=== PATIENT | male | born 1950 | race Caucasian/White ===

== ENCOUNTER 2016-08-07 07:54 | Inpatient (IN) | payer OTHER, MEDICARE ==
[2016-08-07] VITALS (14 sets, daily range): BP systolic 134–231; BP diastolic 72–110; PULSE 56–84; RESP 16–20; TEMP 96.5–98; O2SAT 96–99
[~2016-08-07] VITALS: Ht 165.1 cm; Wt 83.0 kg
[~2016-08-07 07:54] MED LIST: ASPI81TA64 PO; ATOR20TA42 PO; LISI20 PO; NORV10TA PO; PERC7.5T3 PO; PROT40TA PO
[2016-08-07] MEDS ORDERED: SODIUM CHLORIDE 0.9% FLUSH 10 ML FLUSH IVF PRN (08:15)
[2016-08-07] MEDS ORDERED: LISI-515 PO (08:25)
[2016-08-07] MEDS ORDERED: AMLO10 PO (08:25)
--- NOTE | 2016-08-07 08:27 | PD ---
HPI Chief Complaint: CVA Time Seen by Provider: 08:12 Travel History International Travel<30 days: No Contact w/Intl Traveler<30days: No History of Present Illness HPI Patient is a 65-year-old male with history of hypertension, hyperlipdemia, gerd , who presents to emergency room for evaluation of possible CVA. Patient reports that he usually due to bed around 7:30 PM, he does wake up around 3:30 to 4 AM everyday. Patient reports that he woke up this morning and reports that his left arm felt numb and tingling. Reports that he was unable to speak and unable to stand up. Patient reports that his symptoms lasted for a few seconds and resolved on its own. Patient did call his family member who advised him to go to emergency room and be evaluated for possible CVA. Patient reports that over the past few days, he has had increased tingling sensation to his left arm, reports that he didn't think much of it at that time, reports that he ignored his symptoms. Reports that he does have history of hypertension , is currently on lisinopril as well as Norvasc for this and has been taking his medications as prescribed. Reports that his primary care doctor does prescribe his medications, he has seen oracle fusion middleware architect (Dr. Tre Story) in the past and did have cardiac catheter which as per patient, did not show coronary artery disease and has not followed up with Dr. Story in a few years as he has not needed to. Reports that overall, he is feeling much better and has complete resolution of symptoms at this time. Patient denies chest pain or shortness of breath at this time. 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) Endocrine: No GERD: Yes Genitourinary: Yes (BLADDER CA) Hepatitis: Yes (B) Hypertension: Yes Immune Disorder: No Musculoskeletal: No Neurologic: No Psychiatric: No Reproductive: No Respiratory: Yes Radiation Therapy: No Past Surgical History Abdominal Surgery: Yes (BLADDER TUMOR) Cardiac Surgery: Yes (stents jun 2012) Genitourinary Surgery: Yes (CYSTOSCOPY X 2 WITH BLADDER TUMOR REMOVED) Social History Alcohol Use: No Tobacco Use: No Substance Use: No Allergies-Medications (Allergen,Severity, Reaction): Coded Allergies: No Known Allergies (Verified , 08/07/16) Reported Meds & Prescriptions Reported Meds & Active Scripts Active Reported Lisinopril 20 Mg Tab 20 Mg PO DAILY Norvasc (Amlodipine Besylate) 10 Mg Tab 10 Mg PO DAILY Review of Systems General / Constitutional: No: Fever Eyes: No: Visual changes HENT: No: Headaches Cardiovascular: No: Chest Pain or Discomfort Respiratory: No: Shortness of Breath Gastrointestinal: No: Abdominal Pain Genitourinary: No: Dysuria Musculoskeletal: No: Pain Skin: No Rash Neurologic: Positive: Weakness, Paresthesia, Sensory Disturbance, No: Slurred Speech (speech changes) Psychiatric: No: Depression Endocrine: No: Polydipsia Hematologic/Lymphatic: No: Easy Bruising Physical Exam Narrative GENERAL: No acute distress, nontoxic SKIN: Focused skin assessment warm/dry. HEAD: Atraumatic. Normocephalic. EYES: Pupils equal and round. No scleral icterus. No injection or drainage. ENT: No nasal bleeding or discharge. Mucous membranes pink and moist. NECK: Trachea midline. No JVD. CARDIOVASCULAR: Regular rate and rhythm. No murmur appreciated. RESPIRATORY: No accessory muscle use. Clear to auscultation. Breath sounds equal bilaterally. GASTROINTESTINAL: Abdomen soft, non-tender, nondistended. Hepatic and splenic margins not palpable. MUSCULOSKELETAL: No obvious deformities. No clubbing. No cyanosis. No edema. NEUROLOGICAL: Awake and alert. No obvious cranial nerve deficits. Motor grossly within normal limits. Normal speech. Cranial nerves 2- 12 grossly intact with no neuro deficits PSYCHIATRIC: Appropriate mood and affect; insight and judgment normal. Data Data Last Documented VS Vital Signs Date Time Temp Pulse Resp B/P Pulse Ox O2 Delivery O2 Flow Rate FiO2 08/07/16 09:21 71 18 152/80 98 08/07/16 08:30 Room Air 08/07/16 08:11 98.0 Orders Electrocardiogram (08/07/16 ) Prothrombin Time / Inr (Pt) (08/07/16 08:12) Act Partial Throm Time (Ptt) (08/07/16 08:12) Complete Blood Count With Diff (08/07/16 08:12) Comprehensive Metabolic Panel (08/07/16 08:12) Creatine Kinase (Cpk) (08/07/16 08:12) Troponin I (08/07/16 08:12) Urinalysis - C+S If Indicated (08/07/16 08:12) Ct Brain W/O Iv Contrast(Rout) (08/07/16 08:12) Chest, Single Ap (08/07/16 08:12) Ecg Monitoring (08/07/16 08:12) Iv Access Insert/Monitor (08/07/16 08:12) Oximetry (08/07/16 08:12) Blood Glucose (08/07/16 08:12) Sodium Chloride 0.9% Flush (Ns Flush) (08/07/16 08:15) Labetalol Inj (Trandate Inj) (08/07/16 08:30) Urine Culture (08/07/16 08:15) Acetaminophen (Tylenol) (08/07/16 09:30) Aspirin (Aspirin) (08/07/16 09:45) Admit Order (Ed Use Only) (08/07/16 10:02) Labs Laboratory Tests Test 08/07/16 08/07/16 08:15 08:20 Urine Color YELLOW Urine Turbidity CLEAR Urine pH 6.5 Urine Specific [place] 1.016 Urine Protein TRACE mg/dL Urine Glucose (UA) NEG mg/dL Urine Ketones NEG mg/dL Urine Occult Blood NEG Urine Nitrite NEG Urine Bilirubin NEG Urine Urobilinogen LESS THAN 2.0 MG/DL Urine Leukocyte Esterase NEG Urine RBC 1 /hpf Urine WBC 1 /hpf Urine Bacteria RARE /hpf Microscopic Urinalysis Comment CATH-CULTURE IND White Blood Count 7.9 TH/MM3 Red Blood Count 5.18 MIL/MM3 Hemoglobin 16.2 GM/DL Hematocrit 45.7 % Mean Corpuscular Volume 88.2 FL Mean Corpuscular Hemoglobin 31.3 PG Mean Corpuscular Hemoglobin 35.5 % Concent Red Cell Distribution Width 13.0 % Platelet Count 136 TH/MM3 Mean Platelet Volume 9.2 FL Neutrophils (%) (Auto) 62.2 % Lymphocytes (%) (Auto) 27.0 % Monocytes (%) (Auto) 8.7 % Eosinophils (%) (Auto) 1.5 % Basophils (%) (Auto) 0.6 % Neutrophils # (Auto) 4.9 TH/MM3 Lymphocytes # (Auto) 2.1 TH/MM3 Monocytes # (Auto) 0.7 TH/MM3 Eosinophils # (Auto) 0.1 TH/MM3 Basophils # (Auto) 0.0 TH/MM3 CBC Comment DIFF FINAL Differential Comment Prothrombin Time 11.4 SEC Prothromb Time International 1.0 RATIO Ratio Activated Partial 28.4 SEC Thromboplast Time Sodium Level 138 MEQ/L Potassium Level 4.8 MEQ/L Chloride Level 104 MEQ/L Carbon Dioxide Level 27.2 MEQ/L Anion Gap 7 MEQ/L Blood Urea Nitrogen 19 MG/DL Creatinine 1.05 MG/DL Estimat Glomerular Filtration 71 ML/MIN Rate Random Glucose 109 MG/DL Calcium Level 9.3 MG/DL Total Bilirubin 1.0 MG/DL Aspartate Amino Transf 29 U/L (AST/SGOT) Alanine Aminotransferase 34 U/L (ALT/SGPT) Alkaline Phosphatase 47 U/L Total Creatine Kinase 217 U/L Troponin I LESS THAN 0.02 NG/ML Total Protein 7.4 GM/DL Albumin 3.8 GM/DL [facility] Medical Decision Making Medical Screen Exam Complete: Yes Emergency Medical Condition: Yes Interpretation(s) EKG at 0817: NSR at 70bpm, qt/qtc: 436/456, lbbb, no acute changes Vital Signs Date Time Temp Pulse Resp B/P Pulse Ox O2 Delivery O2 Flow Rate FiO2 08/07/16 07:58 97.7 84 20 231/110 97 Room Air Laboratory Tests Test 08/07/16 08/07/16 08:15 08:20 Urine Color YELLOW (YELLW/STRAW) Urine Turbidity CLEAR (CLEAR) Urine pH 6.5 (5.0-8.5) Urine Specific [place] 1.016 (1.002-1.035) Urine Protein TRACE mg/dL (NEG-TRACE) Urine Glucose (UA) NEG mg/dL (NEG) Urine Ketones NEG mg/dL (NEG) Urine Occult Blood NEG (NEG) Urine Nitrite NEG (NEG) Urine Bilirubin NEG (NEG) Urine Urobilinogen LESS THAN 2.0 MG/DL (LESS THAN 2.0) Urine Leukocyte Esterase NEG (NEG) Urine RBC 1 /hpf (0-3) Urine WBC 1 /hpf (0-5) Urine Bacteria RARE /hpf (NONE) Microscopic Urinalysis Comment CATH-CULTURE IND White Blood Count 7.9 TH/MM3 (4.0-11.0) Red Blood Count 5.18 MIL/MM3 (4.50-5.90) Hemoglobin 16.2 GM/DL (13.0-17.0) Hematocrit 45.7 % (39.0-51.0) Mean Corpuscular Volume 88.2 FL (80.0-100.0) Mean Corpuscular Hemoglobin 31.3 PG (27.0-34.0) Mean Corpuscular Hemoglobin 35.5 % Concent (32.0-36.0) Red Cell Distribution Width 13.0 % (11.6-17.2) Platelet Count 136 TH/MM3 (150-450) Mean Platelet Volume 9.2 FL (7.0-11.0) Neutrophils (%) (Auto) 62.2 % (16.0-70.0) Lymphocytes (%) (Auto) 27.0 % (9.0-44.0) Monocytes (%) (Auto) 8.7 % (0.0-8.0) Eosinophils (%) (Auto) 1.5 % (0.0-4.0) Basophils (%) (Auto) 0.6 % (0.0-2.0) Neutrophils # (Auto) 4.9 TH/MM3 (1.8-7.7) Lymphocytes # (Auto) 2.1 TH/MM3 (1.0-4.8) Monocytes # (Auto) 0.7 TH/MM3 (0-0.9) Eosinophils # (Auto) 0.1 TH/MM3 (0-0.4) Basophils # (Auto) 0.0 TH/MM3 (0-0.2) CBC Comment DIFF FINAL Differential Comment Prothrombin Time 11.4 SEC (9.8-11.6) Prothromb Time International 1.0 RATIO Ratio Activated Partial 28.4 SEC Thromboplast Time (24.3-30.1) Sodium Level 138 MEQ/L (136-145) Potassium Level 4.8 MEQ/L (3.5-5.1) Chloride Level 104 MEQ/L (98-107) Carbon Dioxide Level 27.2 MEQ/L (21.0-32.0) Anion Gap 7 MEQ/L (5-15) Blood Urea Nitrogen 19 MG/DL (7-18) Creatinine 1.05 MG/DL (0.60-1.30) Estimat Glomerular Filtration 71 ML/MIN (>89) Rate Random Glucose 109 MG/DL (74-106) Calcium Level 9.3 MG/DL (8.5-10.1) Total Bilirubin 1.0 MG/DL (0.2-1.0) Aspartate Amino Transf 29 U/L (15-37) (AST/SGOT) Alanine Aminotransferase 34 U/L (12-78) (ALT/SGPT) Alkaline Phosphatase 47 U/L (45-117) Total Creatine Kinase 217 U/L (39-308) Troponin I LESS THAN 0.02 NG/ML (0.02-0.05) Total Protein 7.4 GM/DL (6.4-8.2) Albumin 3.8 GM/DL (3.4-5.0) Last Impressions Head CT 08/07/16811 Signed Impressions: Service Date/Time: July 08:56 - CONCLUSION: No acute intracranial findings. Moris Lam MD Chest X-Ray 08/07/16811 Signed Impressions: Service Date/Time: July 08:18 - CONCLUSION: 1. No acute cardiopulmonary disease. Rafa Santiago MD Vital Signs Date Time Temp Pulse Resp B/P Pulse Ox O2 Delivery O2 Flow Rate FiO2 08/07/16 09:21 71 18 152/80 98 08/07/16 08:39 70 167/92 08/07/16 08:30 81 18 160/92 98 Room Air 08/07/16 08:17 17 98 Room Air 08/07/16 08:15 81 17 98 Room Air 08/07/16 08:11 98.0 70 18 220/106 08/07/16 07:58 97.7 84 20 231/110 97 Room Air Differential Diagnosis TIA, Hypertensive urgency, Intracranial Hemorrhage, Arrhythmia, ACS, Electrolyte Abnormality Narrative Course Patient is a 65-year-old male who presents to emergency room for evaluation of possible CVA. Patient reports that he woke up this morning at his normal time around 4 AM and reports that he had numbness and paresthesias to his left arm, reports that he was unable to speak and unable to stand up and ambulate. Patient reports that the symptoms lasted a few seconds and resolved on its own. Patient at this time reports complete resolution of symptoms. Patient had a benign neuro exam with no cranial nerve deficits. Patient does have concerning symptoms for possible TIA. Will workup patient for TIA which includes CT of the head as well as lab work and EKG. Patient's blood pressure is concerning as it is 231/110 - hypertensive urgency could cause these symptoms as well. Will give patient antihypertensives to lower his blood pressure. Patient was placed on pegger dobby looms upon arrival to ER BP now 167/92 without labetolol - will hold labetolol at this time Reviewed all labs and studies with patient in detail. Patient agreeable to observation for TIA work up case reviewed with dr hawthorne who accepts pt to service Diagnosis Primary Impression: TIA (transient ischemic attack) Qualified Code: G45.9 - Transient cerebral ischemia, unspecified type Admitting Information Admitting Physician Requests: Tigist Perez DO Aug 07, 2016 08:27
[2016-08-07] MEDS ORDERED: LABETALOL HCL 100 MG/20 ML VIAL IV PUSH ONE (08:30)
[2016-08-07 08:33] LABS: AUTOMATED NEUTROPHIL # 4.9 TH/MM3 (1.8-7.7); BASOPHIL % 0.6 % (0.0-2.0); EOSINOPHIL # 0.1 TH/MM3 (0-0.4); EOSINOPHIL % 1.5 % (0.0-4.0); HEMATOCRIT 45.7 % (39.0-51.0); HEMO FLAGS DIFF FINAL; LYMPHOCYTE # 2.1 TH/MM3 (1.0-4.8); MEAN CELL VOLUME 88.2 FL (80.0-100.0); MEAN CORPUSCULAR HEMOGLOBIN 31.3 PG (27.0-34.0); MEAN CORPUSCULAR HGB CONC 35.5 % (32.0-36.0); MONO % 8.7 % (0.0-8.0); NEUT % 62.2 % (16.0-70.0); PLATELET COUNT 136 TH/MM3 (150-450); RED BLOOD COUNT 5.18 MIL/MM3 (4.50-5.90); WHITE BLOOD COUNT 7.9 TH/MM3 (4.0-11.0)
[2016-08-07 08:33] LABS: BACTERIA, URINE RARE /hpf; BLOOD, URINE NEG (NEG); COMMENT (UR) CATH-CULTURE IND; CULTURE IF INDICATED CATH CULTURE IND; GLUCOSE,URINE NEG (NEG); KETONE, URINE NEG (NEG); NITRITE,URINE NEG (NEG); PH, URINE 6.5 (5.0-8.5); URINE COLOR YELLOW (YELLW/STRAW)
[2016-08-07 08:42] LABS: APTT (PATIENT) 28.4 SEC (24.3-30.1); PROTHROMBIN TIME - PATIENT 11.4 SEC (9.8-11.6)
--- NOTE | 2016-08-07 08:53 | RADRPT ---
EXAM DATE/TIME: 08/07/2016 08:18 [facility] COMPARISON: CHEST SINGLE AP, December 14, 2012, 16:26. INDICATIONS : Patient states he had stroke like symptoms this morning. He had left side numbness, very weak and diz zy, and said he was trying to talk but couldn't. MEDICAL HISTORY : None. SURGICAL HISTORY : None. ENCOUNTER: Initial ACUITY: 1 day PAIN SCORE: 0/10 LOCATION: Bilateral chest FINDINGS: The cardiac silhouette is enlarged in transverse diameter. The lungs are free of acute parenchymal op acity. No effusions are identified. The aortic knob is prominent with tortuosity of the descending th oracic aorta. CONCLUSION: 1. No acute cardiopulmonary disease. Rafa Santiago MD on August 07, 2016 at 8:51 Board Certified Radiologist. This report was verified electronically.
[2016-08-07 08:56] LABS: ALKALINE PHOSPHATASE 47 U/L (45-117); ALT (GPT) 34 U/L (12-78); ANION GAP 7 MEQ/L (5-15); AST (GOT) 29 U/L (15-37); BICARBONATE 27.2 MEQ/L (21.0-32.0); BLOOD UREA NITROGEN 19 MG/DL (7-18); CHLORIDE 104 MEQ/L (98-107); CREATINE KINASE 217 U/L (39-308); GLOMERULAR FILTRATION RATE 71 ML/MIN (>89); SODIUM (NA) 138 MEQ/L (136-145)
[2016-08-07 08:59] LABS: POTASSIUM 4.8 MEQ/L (3.5-5.1)
[2016-08-07] MEDS ORDERED: ACETAMINOPHEN 325 MG TAB PO ONE (09:30)
--- NOTE | 2016-08-07 09:33 | RADRPT ---
EXAM DATE/TIME: 08/07/2016 08:56 [facility] COMPARISON: CT BRAIN W/O CONTRAST, December 14, 2012, 16:06. CHEST SINGLE AP, August 07, 2016, 8:18. INDICATIONS : Woke up this morning unable to speak or move appropriately. RADIATION DOSE: 56.35 CTDIvol (mGy) MEDICAL HISTORY : Cardiovascular disease. Hypertension. Hepatitis B.Bladder cancer. SURGICAL HISTORY : None. ENCOUNTER: Initial ACUITY: 1 day PAIN SCALE: 0/10 LOCATION: cranial TECHNIQUE: Multiple contiguous axial images were obtained of the head. Using automated exposure control and adj ustment of the mA and/or kV according to patient size, radiation dose was kept as low as reasonably a chievable to obtain optimal diagnostic quality images. FINDINGS: CEREBRUM: The ventricles are normal for age. No evidence of midline shift, mass lesion, hemorrhage or acute in farction. No extra-axial fluid collections are seen. POSTERIOR FOSSA: The cerebellum and brainstem are intact. The 4th ventricle is midline. The cerebellopontine angle i s unremarkable. EXTRACRANIAL: The visualized portion of the orbits is intact. SKULL: The calvaria is intact. No evidence of skull fracture. CONCLUSION: No acute intracranial findings. Moris Lam MD on August 07, 2016 at 9:27 Board Certified Radiologist. This report was verified electronically.
[2016-08-07] MEDS ORDERED: ASPIRIN 325 MG TAB PO ONE (09:45)
[2016-08-07] MEDS ORDERED: GLUCAGON 1 MG/ML VIAL OTHER PRN (10:15)
[2016-08-07] MEDS ORDERED: DEXTROSE 50% IN WATER 50 ML VIAL(D50) IV PUSH PRN (10:15)
[2016-08-07] MEDS ORDERED: ENALAPRILAT 1.25 MG/ML VIAL IV PRN (10:15)
[2016-08-07] MEDS ORDERED: SODIUM CHLORIDE 0.9% FLUSH 10 ML FLUSH IV FLUSH PRN (10:15)
[2016-08-07] MEDS: INSULIN ASPART SUPPLEMENTAL SCALE SQ SCH ×3 (11:00→21:00)
--- NOTE | 2016-08-07 11:07 | RADRPT ---
EXAM DATE/TIME: 08/07/2016 10:11 [facility] COMPARISON: MRA CAROTIDS W CONTRAST, December 18, 2012, 12:09. INDICATIONS : Transischemic attack. Left arm numbness. MEDICAL HISTORY : Hypertension. Gastroesophageal reflux disease. Carcinoma, bladder. PAD. COPD. SURGICAL HISTORY : Cardiac stent. Bladder tumor removal. ENCOUNTER: Initial ACUITY: 3 days PAIN SCORE: 0/10 LOCATION: Bilateral neck PEAK SYSTOLIC VELOCITIES (cm/sec): ICA/CCA RATIO: Right: 13.4 Left: 2.3 ICA: Right: 579 Left: 189 CCA: Right: 43 Left: 81 ECA: Right: 114 Left: 131 VERTEBRAL: Right: 54 antegrade Left: 41 antegrade Elevated flow velocities and ICA/CCA ratios have been found to correlate with increased degrees of vessel stenosis, calculated as percentage of diameter relative to a normal segment of distal ICA/CCA FINDINGS: RIGHT CAROTID: Severe calcified atherosclerotic plaque is seen involving the proximal ICA with less abundant calcifi ed plaque involving the bulb and common carotid artery. The calcified nature of the ICA plaque genera freeman shadowing obscuring grayscale analysis. The ICA waveform shows considerable spectral broadening w as some delay in the stroke as well as a reduced peak infiltrate. Antegrade diastolic flow persists. LEFT CAROTID: Severe calcified atherosclerotic plaque is seen involving the proximal ICA with less abundant calcifi ed plaque involving the bulb and common carotid artery. The calcified nature of the ICA plaque genera freeman shadowing obscuring grayscale analysis. The ICA waveform shows considerable spectral broadening w as some delay in the stroke as well as a reduced peak infiltrate. Antegrade diastolic flow persists. VERTEBRAL ARTERIES: Antegrade flow is seen in both vertebral arteries. MISCELLANEOUS: None. CONCLUSION: 1. Diffuse severe calcified plaque involving both carotid arteries. High grade stenosis suspected inv olving the right ICA with 50-69% stenosis involving the left ICA. Consider CTA of the carotid arterie s to further evaluate. 2. Antegrade flow involving both vertebral arteries. Carlos Laguna Jr., MD on August 07, 2016 at 10:59 Board Certified Radiologist. This report was verified electronically.
[2016-08-07] MEDS: HEPARIN SODIUM - SQ 10,000 UNITS/ML VIAL SQ SCH ×2 (11:11→18:40)
--- NOTE | 2016-08-07 11:47 | HHI.HP ---
[facility] Obi Tejeda M.D. Admission Diagnosis TIA Diagnoses: Chief Complaint: Left arm and shoulder numbness and tingling, with aphasia Travel History International Travel<30 Days: No Contact w/Intl Traveler <30 Da: No Traveled to Known Affected Are: No History of Present Illness 65 years old male with history of hypertension, PVD left femoral stenting, history of heart catheter in the past was negative, history of bladder cancer status post 2 time cystoscopy and cancer removal, patient not sure if he had other type of treatment. Presented to the ED with a new complain of left arm and shoulder numbness and tingling started after he woke up this morning at 4:00 , he stated the symptoms last for a few minutes and I complied by complete weakness and not able to speak "aphasia". No fever or chills dizziness or lightheadedness no chest pain or short of breath no abdominal pain diarrhea or constipation. No recent flulike syndrome. Patient stated he smoked electric cigarettes and before that he used to smoke 2 pack a day for 40 years or more. In ED was given aspirin CT of the head didn' t show hemorrhage Review of Systems All 10 systems reviewed and was positive for what is mentioned in history of present illness otherwise negative Past Family Social History Past Medical History History of bladder cancer Hypertension COPD PVD Tobacco abuse Past Surgical History Heart catheter 5 years ago Left femoral stenting Bladder cancer history of cystoscopy and cancer removal as per the patient Allergies: Coded Allergies: No Known Allergies (Verified , 08/07/16) Family History No history of coronary artery disease or cancer he is aware of in his family Social History Patient smokes electric cigarettes before that he smoked more than 2 packs a day for 40 years, denies alcohol or illicit drug abuse Physical Exam Vital Signs Vital Signs Date Time Temp Pulse Resp B/P Pulse Ox O2 Delivery O2 Flow Rate FiO2 08/07/16 10:27 17 08/07/16 10:10 97.8 67 18 160/80 98 Room Air 08/07/16 09:21 71 18 152/80 98 08/07/16 08:39 70 167/92 08/07/16 08:30 81 18 160/92 98 Room Air 08/07/16 08:17 17 98 Room Air 08/07/16 08:15 81 17 98 Room Air 08/07/16 08:11 98.0 70 18 220/106 08/07/16 07:58 97.7 84 20 231/110 97 Room Air Physical Exam GENERAL: This is a well-nourished, well-developed patient, in no apparent distress. SKIN: No rashes, warm and dry HEAD: Atraumatic. Normocephalic. EYES: Pupils equal round and reactive. Extraocular motions intact. No scleral icterus. ENT: Nose without bleeding, or drainage, Airway patent. NECK: Trachea midline. Supple CARDIOVASCULAR: Regular rate and rhythm without murmurs, gallops, or rubs. RESPIRATORY: Diminished breath sounds, no significant wheezing appreciated GASTROINTESTINAL: Abdomen soft, non-tender, nondistended. Positive bowel sounds MUSCULOSKELETAL: Extremities without clubbing, cyanosis, or edema. Pedal pulses appreciated NEUROLOGICAL: Awake and alert. Moves all extremity. Normal speech.no focal neurological deficit Laboratory Laboratory Tests Test 08/07/16 08/07/16 08:15 08:20 Urine Color YELLOW Urine Turbidity CLEAR Urine pH 6.5 Urine Specific [place] 1.016 Urine Protein TRACE Urine Glucose (UA) NEG Urine Ketones NEG Urine Occult Blood NEG Urine Nitrite NEG Urine Bilirubin NEG Urine Urobilinogen LESS THAN 2.0 Urine Leukocyte Esterase NEG Urine RBC 1 Urine WBC 1 Urine Bacteria RARE Microscopic Urinalysis Comment CATH-CULTURE IND White Blood Count 7.9 Red Blood Count 5.18 Hemoglobin 16.2 Hematocrit 45.7 Mean Corpuscular Volume 88.2 Mean Corpuscular Hemoglobin 31.3 Mean Corpuscular Hemoglobin 35.5 Concent Red Cell Distribution Width 13.0 Platelet Count 136 Mean Platelet Volume 9.2 Neutrophils (%) (Auto) 62.2 Lymphocytes (%) (Auto) 27.0 Monocytes (%) (Auto) 8.7 Eosinophils (%) (Auto) 1.5 Basophils (%) (Auto) 0.6 Neutrophils # (Auto) 4.9 Lymphocytes # (Auto) 2.1 Monocytes # (Auto) 0.7 Eosinophils # (Auto) 0.1 Basophils # (Auto) 0.0 CBC Comment DIFF FINAL Differential Comment Prothrombin Time 11.4 Prothromb Time International 1.0 Ratio Activated Partial 28.4 Thromboplast Time Sodium Level 138 Potassium Level 4.8 Chloride Level 104 Carbon Dioxide Level 27.2 Anion Gap 7 Blood Urea Nitrogen 19 Creatinine 1.05 Estimat Glomerular Filtration 71 Rate Random Glucose 109 Calcium Level 9.3 Total Bilirubin 1.0 Aspartate Amino Transf 29 (AST/SGOT) Alanine Aminotransferase 34 (ALT/SGPT) Alkaline Phosphatase 47 Total Creatine Kinase 217 Troponin I LESS THAN 0.02 Total Protein 7.4 Albumin 3.8 Date/Time Procedure Status Source Growth 08/07/16 08:15 Urine Culture Received Urine Catheterized Urine Pending Result Diagram: 08/07/1681908/07/16819 Assessment and Plan Assessment and Plan 65 years old male history of hypertension came with Left arm and shoulder numbness with aphasia rule out TIA versus hypertensive urgency/emergency with encephalopathy Admit for observation Flat head of the bed, permissive hypertension keep at 160-170 systolic goal Neuro check, INH scale, carotid ultrasound, EEG, 2-D echo, MRI/MRA, FLP, A1c Aspirin was given in ED Hypertensive urgency blood pressure 230/110 at admission Patient was given labetalol 10 mg iv in ED, blood pressure improved to 160/80 Monitor blood pressure H/O PVD with left femoral stenting, and recent worsening claudication Will check IFEANYI History of COPD: O2 and DuoNeb as needed H/O heart catheter 5 years ago Considering his tobacco abuse risk will continue cycling cardiac enzyme EEG reviewed personally by me showing sinus rhythm with ectopy, LAD, LBBB Tobacco abuse Patient was counseled DVT prophylaxis with SCD and heparin Ruslan Lilly MD Aug 07, 2016 11:46
[2016-08-07] MEDS ORDERED: RESP: ALBUTEROL 2.5 MG/IPRATROPIUM 0.5 MG NEB (PRN) NEB (12:30)
--- NOTE | 2016-08-07 13:24 | EKG ---
Date Performed: 08/07/2016 Time Performed: 08:17:56 PTAGE: 65 years EKG: Sinus rhythm WITH OCCASIONAL SUPRAVENTRICULAR PREMATURE COMPLEXES MARKED LEFT AXIS DEVIATION LEFT BUNDLE BRANCH B LOCK ABNORMAL ECG PREVIOUS TRACING : 12/20/2012 08.48 Compared to prior tracing no significant change DOCTOR: Rafa Parker Interpretating Date/Time 08/07/2016 13:21:54
[2016-08-07 13:35] LABS: CREATINE KINASE 171 U/L (39-308)
[2016-08-07 13:48] LABS: CKMB 1.8 NG/ML (0.5-3.6)
--- NOTE | 2016-08-07 14:44 | RADRPT ---
EXAM DATE/TIME: 08/07/2016 00:00 [facility] COMPARISON: No previous studies available for comparison. INDICATIONS : Bilateral Lower Extremity Claudication TECHNIQUE: Four-cuff ankle and brachial pressures were obtained. Pulse cuff waveform tracings of the ankles were recorded, and ankle-brachial indices were calculated. PRESSURES (mmHg): Brachial (arm): Right IV SITE Left 149 Ankle: Right 120 Left 136 IFEANYI: Right 0.81 Left 0.91 TBI: Right 0.62 Left 0.72 PULSED CUFF WAVEFORMS: Demonstrate normal amplitude bilaterally. CONCLUSION: 1. Findings of mild disease on the right side as well as a slightly decreased toe brachial index sidney cative of small vessel vascular disease. CT angiography of the abdominal aorta and lower extremities is recommended for further evaluation if clinically indicated. Rafa Santiago MD on August 07, 2016 at 14:42 Board Certified Radiologist. This report was verified electronically.
[2016-08-07] MEDS: RESP: ALBUTEROL 2.5 MG/IPRATROPIUM 0.5 MG NEB (SCH) NEB ×2 (16:25→19:43)
--- NOTE | 2016-08-07 16:38 | RADRPT ---
EXAM DATE/TIME: 08/07/2016 15:20 [facility] COMPARISON: No previous studies available for comparison. INDICATIONS : Confusion. Numbness and tingling in left arm with aphasia. MEDICAL HISTORY : Hypercholesterolemia. Carcinoma, bladder. Chronic obstructive pulmonary disease. Hepatitis B and hype rtension. SURGICAL HISTORY : Coronary artery stent. Bladder cancer resection. ENCOUNTER: Initial ACUITY: 1 day PAIN SCORE: 0/10 LOCATION: Head. TECHNIQUE: Multiplanar, multisequence MRI of the brain was performed without contrast. FINDINGS: MRI of the brain is performed in sagittal, axial and coronal planes. The craniocervical junction and midline structures are unremarkable. Diffusion weighted images demonstrate no abnormality. There is n o evidence of acute cortical infarction, acute hemorrhage, mass effect or midline shift is seen. Ther e is periventricular hyperintensity on the T2 weighted images consistent with small vessel vascular d isease slightly more than expected in a patient of this age. Posterior fossa structures are unremarka ble. CONCLUSION: 1. No evidence of acute intracranial pathology. Chronic ischemic changes as above. Rafa Santiago MD on August 07, 2016 at 16:34 Board Certified Radiologist. This report was verified electronically.
--- NOTE | 2016-08-07 16:40 | RADRPT ---
EXAM DATE/TIME: 08/07/2016 15:20 [facility] COMPARISON: No previous studies available for comparison. INDICATIONS : CVA. Numbness and tingling in left arm with aphasia. MEDICAL HISTORY : Hypercholesterolemia. Carcinoma, bladder. Chronic obstructive pulmonary disease. Hepatitis B and hype rtension. SURGICAL HISTORY : Coronary artery stent. Bladder tumor removed. ENCOUNTER: Initial ACUITY: 1 day PAIN SCORE: 0/10 LOCATION: Head. Please note a normal MRA of the brain does not entirely exclude the possibility of a small aneurysm, nor the possibility of distal intracranial vessel disease. TECHNIQUE: 3D time of flight MRA was performed. Source images, multiplanar STS MIP, and 3D volume MIP reconstru ctions were reviewed. FINDINGS: There is excellent visualization of the major intracranial arteries out to the second-order branch ve ssels. There is no evidence for aneurysm, vessel truncation or stenosis, and no evidence for vascula r malformation. There is a patent posterior communicating artery on the left. The right vertebral art brinda is dominant. CONCLUSION: 1. Unremarkable MR angiography of the brain. Rafa Santiago MD on August 07, 2016 at 16:36 Board Certified Radiologist. This report was verified electronically.
--- NOTE | 2016-08-07 17:09 | EC ---
Study Study Date:08/07/2016 STUDY CONCLUSIONS SUMMARY - Left ventricle: The cavity size was normal. Wall thickness was normal. Systolic function was severely reduced. The estimated ejection fraction was in the range of 25% to 30%. Diffuse hypokinesis. - Mitral valve: Mild regurgitation. - Pulmonary arteries: PA peak pressure: 36mm Hg (S). Impressions: No cardiac source of emboli was indentified. If LV function is below 40, please consider prescribing an ACEI or ARB or document rationale for non-use. PROCEDURE DATA STUDY STATUS: Elective. Procedure: Transthoracic echocardiography. Image quality was good. Scanning was performed from the parasternal, apical, and subcostal acoustic windows. Study completion: The patient tolerated the procedure well. Transthoracic echocardiography. M-mode, complete 2D, complete spectral Doppler, and color Doppler. Patient status: Inpatient. CARDIAC ANATOMY LEFT VENTRICLE: The cavity size was normal. Wall thickness was normal. Systolic function was severely reduced. The estimated ejection fraction was in the range of 25% to 30%. Diffuse hypokinesis. AORTIC VALVE: Trileaflet; normal thickness leaflets. Doppler: Transvalvular velocity was within the normal range. There was no stenosis. No regurgitation. AORTA: Aortic root: The aortic root was normal in size. MITRAL VALVE: Structurally normal valve. Doppler: Transvalvular velocity was within the normal range. There was no evidence for stenosis. Mild regurgitation. LEFT ATRIUM: The atrium was normal in size. RIGHT VENTRICLE: The cavity size was normal. Wall thickness was normal. PULMONIC VALVE: Doppler: Transvalvular velocity was within the normal range. There was no evidence for stenosis. No regurgitation. TRICUSPID VALVE: Structurally normal valve. Doppler: Transvalvular velocity was within the normal range. No regurgitation. PULMONARY ARTERY: The main pulmonary artery was normal-sized. Systolic pressure was within the normal range. RIGHT ATRIUM: The atrium was normal in size. PERICARDIUM: There was no pericardial effusion. SYSTEMIC VEINS: Inferior vena cava: The vessel was normal in size. BASIC MEASUREMENTS ADULT Normal Left ventricle LV internal dimension, ED, chordal level, 45.1 mm 43-52 PLAX LV internal dimension, ES, chordal level, *40.9 mm 23-38 PLAX Fractional shortening, chordal level, PLAX *9 % >29 LV posterior wall thickness, ED 13 mm IVS/LVPW ratio, ED 0.95 <1.3 Ventricular septum Septal thickness, ED 12.3 mm Aortic valve Leaflet separation 21 mm 15-26 Right ventricle RV internal dimension, ED, PLAX 25.8 mm 19-38 BASIC MEASUREMENTS ADULT Normal Aortic valve Leaflet separation 21 mm 15-26 Aorta Root diameter, ED 35 mm 20-37 Left atrium Anterior-posterior dimension, ES 28 mm 19-40 LA/aortic root ratio 0.8 DOPPLER MEASUREMENTS ADULT Normal Main pulmonary artery Pressure, S *36 mm Hg =30 Mitral valve Peak E-wave velocity 48.9 cm/s Peak A-wave velocity 71.6 cm/s Peak E/A ratio 0.7 Tricuspid valve Regurgitant peak velocity 257 cm/s Peak RV-RA gradient, S 26 mm Hg Maximal regurgitant velocity 257 cm/s Systemic veins Estimated CVP 10 mm Hg Right ventricle RV pressure, S *36 mm Hg <30 LEGEND: Mean values are shown as u=mean value. Asterisk (*) gray values outside specified normal range. Prepared and signed by Sai Wells [id number]
[2016-08-07 19:02] LABS: HEMOGLOBIN A1a 0.7 %; HEMOGLOBIN A1b 1.7 %; HEMOGLOBIN Ao 86.3 %; HEMOGLOBIN LA1C 2.1 %; HEMOGLOBIN P3 3.8 %
[2016-08-07 19:42] LABS: CREATINE KINASE 197 U/L (39-308)
[2016-08-07 19:55] LABS: CKMB 1.8 NG/ML (0.5-3.6)
[2016-08-07] MEDS: SODIUM CHLORIDE 0.9% FLUSH 10 ML FLUSH IV FLUSH SCH (21:00)
[2016-08-08] VITALS (9 sets, daily range): BP systolic 151–172; BP diastolic 75–104; PULSE 70–79; RESP 16–18; TEMP 96.3–97.8; O2SAT 93–98
[2016-08-08 02:07] LABS: CREATINE KINASE 215 U/L (39-308)
[2016-08-08 02:19] LABS: CKMB 1.5 NG/ML (0.5-3.6)
[2016-08-08] MEDS: HEPARIN SODIUM - SQ 10,000 UNITS/ML VIAL SQ SCH ×3 (05:03→18:35)
[2016-08-08] MEDS: INSULIN ASPART SUPPLEMENTAL SCALE SQ SCH ×4 (05:07→20:58)
[2016-08-08] MEDS: ACETAMINOPHEN/HYDROcodone 325 MG/5 MG TAB PO PRN ×4 (06:15→20:57)
[2016-08-08 07:02] LABS: HDL CHOLESTEROL 23.5 MG/DL (40.0-60.0)
[2016-08-08] MEDS: RESP: ALBUTEROL 2.5 MG/IPRATROPIUM 0.5 MG NEB (SCH) NEB ×4 (08:22→19:51)
[2016-08-08] MEDS: SODIUM CHLORIDE 0.9% FLUSH 10 ML FLUSH IV FLUSH SCH ×2 (09:24→20:58)
--- NOTE | 2016-08-08 12:36 | HHI.PR ---
Subjective Remarks Patient laying in bed, stated his symptoms improved no headache or blurry vision or chest pain or short of breath However he does have ending his back and lower extremity Carotid ultrasound came back also for stenosis 69% and 50% in the right and left ICA respectively He had a try glyceride hypercholesterolemia with 800, he had mildly positive IFEANYI Objective Vitals Vital Signs Date Time Temp Pulse Resp B/P Pulse Ox O2 Delivery O2 Flow Rate FiO2 08/08/16 12:00 96.3 70 18 163/97 95 08/08/16 10:32 75 08/08/16 08:23 95 21 08/08/16 08:00 97.8 78 16 172/102 98 08/08/16 04:00 96.5 70 18 151/75 93 08/08/16 00:00 96.7 75 18 163/91 95 08/07/16 20:00 97.5 82 18 134/72 96 08/07/16 19:43 97 08/07/16 18:53 75 08/07/16 16:25 96 21 08/07/16 16:00 96.5 56 18 155/86 98 08/07/16 14:00 97.8 68 16 146/81 99 Room Air I/O 08/07/16 08/07/16 08/07/16 08/08/16 08/08/16 08/08/16 07:00 15:00 23:00 07:00 15:00 23:00 Intake Total 480 ml Balance 480 ml Intake Oral 480 ml # Voids 1 # Bowel Movements 0 Result Diagram: 08/07/16 0820 08/07/16 0820 Objective Remarks GENERAL: This is a well-nourished, well-developed patient, in no apparent distress. CARDIOVASCULAR: Regular rate and rhythm without murmurs, gallops, or rubs. RESPIRATORY: Clear to auscultation. Breath sounds equal bilaterally. No wheezes , rales, or rhonchi. GASTROINTESTINAL: Abdomen soft, non-tender, nondistended. Normal active bowel sounds MUSCULOSKELETAL: Extremities without clubbing, cyanosis, or edema. Faint pulses pedal dorsalis, probably chills bilaterally NEURO: Alert & Oriented x4 to person, place, time, situation. Moves all ext x4 A/P Assessment and Plan 08/08 MRI: Only chronic ischemic changes, MRA: Unremarkable 2-D echo showed severely reduced EF 25-30% with diffuse hypokinesis Ultrasound of the carotid showed 50% right ICA stenosis, 69% left ICA stenosis IFEANYI>> mild disease on the right side indicated for small vessel disease CT angiogram of the abdominal aorta and lower extremity recommended LFP showed TG of 838 and HDL of 23 Initially I placed consult for CVS to see patient, then I was told I need to call and discussed the case, I did call Dr. Young and extensively discussed the case with him, I was already ordered CT runoff of the aorta and lower extremity, however he preferred to see the patient first therefore I held on those until patient seen by Dr. Young. Consulted neurology Start Pravachol Blood pressure better today Discussed with the patient in length and explained the finding and the management, Initial A/P: 65 years old male history of hypertension came with Left arm and shoulder numbness with aphasia rule out TIA versus hypertensive urgency/emergency with encephalopathy Admit for observation Flat head of the bed, permissive hypertension keep at 160-170 systolic goal Neuro check, INH scale, carotid ultrasound, EEG, 2-D echo, MRI/MRA, FLP, A1c Aspirin was given in ED Hypertensive urgency blood pressure 230/110 at admission Patient was given labetalol 10 mg iv in ED, blood pressure improved to 160/80 Monitor blood pressure H/O PVD with left femoral stenting, and recent worsening claudication Will check IFEANYI History of COPD: O2 and DuoNeb as needed H/O heart catheter 5 years ago Considering his tobacco abuse risk will continue cycling cardiac enzyme EEG reviewed personally by me showing sinus rhythm with ectopy, LAD, LBBB Tobacco abuse Patient was counseled DVT prophylaxis with SCD and heparin Ruslan Lilly MD Aug 08, 2016 12:36
[2016-08-08] MEDS: amLODIPine BESYLATE 5 MG TAB PO SCH (13:00)
[2016-08-08] MEDS: PRAVASTATIN SOD 80 MG TAB PO SCH (20:57)
[2016-08-09] VITALS (10 sets, daily range): BP systolic 132–186; BP diastolic 73–94; PULSE 67–86; RESP 18–20; TEMP 95.6–99; O2SAT 91–95
[2016-08-09] MEDS: HEPARIN SODIUM - SQ 10,000 UNITS/ML VIAL SQ SCH ×3 (03:00→16:53)
[2016-08-09] MEDS: INSULIN ASPART SUPPLEMENTAL SCALE SQ SCH ×4 (05:42→21:00)
[2016-08-09] MEDS: RESP: ALBUTEROL 2.5 MG/IPRATROPIUM 0.5 MG NEB (SCH) NEB ×4 (07:43→20:00)
--- NOTE | 2016-08-09 08:08 | PD.VS.CON ---
History of Present Illness Chief Complaint: B LE claudication Consult Requested by: Dr. Lilly History of Present Illness 65 yo male with systemic atherosclerosis who was admitted for potential CVA. Pt notes that he was aphasic Wed morning and "couldn't walk" but not clearly with motor dysfunction - seems more like dis-coordination. Has a history of PAD and LE stents. Notes that he has short distance claudication in both calves. No rest pain but he does endorse right foot "jerking" at night, clearly not vasculogenic. Past/Family/Social History Past Medical History bladder CA HTN COPD CAD with EF 25-30% Past Surgical History coronary and LE stents Social History former smoker Home Medications Reported Medications Lisinopril 20 Mg Tab20 Mg PO DAILY #30 TAB Ref 0 08/07/16 Amlodipine (Norvasc)10 Mg Tab10 Mg PO DAILY #30 TAB Ref 0 08/07/16 Coded Allergies: No Known Allergies (Verified , 08/07/16) Review of Systems Constitutional: DENIES: Fever, Chills Eyes: DENIES: Blurred vision, Vision loss Respiratory: DENIES: Cough, Shortness of breath Cardiovascular: COMPLAINS OF: Palpitations, Claudication, DENIES: Chest pain Neurologic: COMPLAINS OF: Speech Problems Physical Exam Vitals/I&O Date Time Temp Pulse Resp B/P Pulse Ox O2 Delivery O2 Flow Rate FiO2 08/09/16 07:55 86 08/09/16 07:44 93 08/09/16 04:00 96.0 79 20 138/79 91 08/09/16 00:00 97.4 67 18 132/73 94 08/08/16 20:00 97.8 71 18 151/86 94 08/08/16 19:51 94 21 08/08/16 16:00 97.3 79 18 164/104 96 08/08/16 12:00 96.3 70 18 163/97 95 08/08/16 10:32 75 08/08/16 08:23 95 21 08/09/16 08/09/16 08/09/16 07:00 15:00 23:00 Intake Total 480 ml Balance 480 ml Neuro: Neuro intact, speech normal, no focal motor deficits HEENT: NC/AT; wears glasses; sclera anicteric Neck: no JVD Heart: Reg rate Lungs: Clear Abdomen: NT Vascular: tough to appreciate femoral pulses No pedal pulses but feet are warm Extremities: no motor dysfunction and no tissue loss Date/Time Procedure Status Source Growth 08/07/16 08:15 Urine Culture - Preliminary Resulted Urine Catheterized Urine Last [address] 08/07/16811 Signed Impressions: Service Date/Time: July 08:56 - CONCLUSION: No acute intracranial findings. Moris Lam MD Chest X-Ray 08/07/16811 Signed Impressions: Service Date/Time: July 08:18 - CONCLUSION: 1. No acute cardiopulmonary disease. Rafa Santiago MD Assessment and Plan Plan 1. 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 I don't feel femoral pulses so I recommend a CTA Abd to toes. Creatinine 1.0. b. I will schedule attempts at revascularization but can be done as outpatient - lifestyle limiting and not limb threatening and certainly potential CVA and treatment take priority 2. CVOD - high grade R ICA stenosis. I am unclear if his symptoms were truly motor vehicle field representative of a CVA. If not, then clearly would not favor prophylactic CVA in asymptomatic patient with EF 25-30%. Needs ASA, statin. If it is decided that he in fact had a TIA on Thu, then would get CTA neck. 3. Will follow closely Clifton Young MD FACS heel gouger [facility] at [facility] [phone] Clifton Young MD Aug 09, 2016 08:08
[2016-08-09] MEDS: amLODIPine BESYLATE 5 MG TAB PO SCH (08:54)
[2016-08-09] MEDS: PRAVASTATIN SOD 80 MG TAB PO SCH (08:54)
[2016-08-09] MEDS: SODIUM CHLORIDE 0.9% FLUSH 10 ML FLUSH IV FLUSH SCH ×2 (08:55→21:00)
[2016-08-09] MEDS: ACETAMINOPHEN/HYDROcodone 325 MG/5 MG TAB PO PRN ×3 (09:10→21:35)
--- NOTE | 2016-08-09 11:34 | HHI.PR ---
Subjective Remarks Resting in bed comfortably Will headache blurry vision chest pain or short of breath Seen by CVS recommending CTA runoff of the aorta and lower extremities Waiting neurology input Objective Vitals Vital Signs Date Time Temp Pulse Resp B/P Pulse Ox O2 Delivery O2 Flow Rate FiO2 08/09/16 08:19 96.2 77 18 137/90 92 08/09/16 07:55 86 08/09/16 07:44 93 08/09/16 04:00 96.0 79 20 138/79 91 08/09/16 00:00 97.4 67 18 132/73 94 08/08/16 20:00 97.8 71 18 151/86 94 08/08/16 19:51 94 21 08/08/16 16:00 97.3 79 18 164/104 96 08/08/16 12:00 96.3 70 18 163/97 95 I/O 08/08/16 08/08/16 08/08/16 08/09/16 08/09/16 08/09/16 07:00 15:00 23:00 07:00 15:00 23:00 Intake Total 240 ml 480 ml Balance 240 ml 480 ml Intake Oral 240 ml 480 ml # Voids 3 4 Result Diagram: 08/07/1620 08/07/16 0820 Objective Remarks GENERAL: This is a well-nourished, well-developed patient, in no apparent distress. SKIN: No rashes, warm and dry HEAD: Atraumatic. Normocephalic. EYES: Pupils equal round and reactive. Extraocular motions intact. No scleral icterus. ENT: Nose without bleeding, or drainage, Airway patent. NECK: Trachea midline. Supple CARDIOVASCULAR: Regular rate and rhythm without murmurs, gallops, or rubs. RESPIRATORY: Fair air entry bilaterally. No wheezes, rales, or rhonchi. GASTROINTESTINAL: Abdomen soft, non-tender, nondistended. Positive bowel sounds MUSCULOSKELETAL: Extremities without clubbing, cyanosis, or edema. Pedal pulses appreciated NEUROLOGICAL: Awake and alert. Moves all extremity. Normal speech.no focal neurological deficit A/P Assessment and Plan 08/08 MRI: Only chronic ischemic changes, MRA: Unremarkable 2-D echo showed severely reduced EF 25-30% with diffuse hypokinesis Ultrasound of the carotid showed high grade right ICA stenosis, 50-69% left ICA stenosis IFEANYI>> mild disease on the right side indicated for small vessel disease CT angiogram of the abdominal aorta and lower extremity recommended LFP showed TG of 838 and HDL of 23 Initially I placed consult for CVS to see patient, then I was told I need to call and discussed the case, I did call Dr. Young and extensively discussed the case with him, I was already ordered CT runoff of the aorta and lower extremity, however he preferred to see the patient first therefore I held on those until patient seen by Dr. Young. Consulted neurology Start Pravachol Blood pressure better today Discussed with the patient in length and explained the finding and the management, 08/09: Appreciate CVS consultation, recommended CTA of the aorta and lower extremity, patient possibly will need revascularization but could be as an outpatient, also he recommended CTA of the neck if indeed the TIA was caused by the right ICA stenosis, awaiting neurology input Initial A/P: 65 years old male history of hypertension came with Left arm and shoulder numbness with aphasia rule out TIA versus hypertensive urgency/emergency with encephalopathy Admit for observation Flat head of the bed, permissive hypertension keep at 160-170 systolic goal Neuro check, INH scale, carotid ultrasound, EEG, 2-D echo, MRI/MRA, FLP, A1c Aspirin was given in ED Hypertensive urgency blood pressure 230/110 at admission Patient was given labetalol 10 mg iv in ED, blood pressure improved to 160/80 Monitor blood pressure H/O PVD with left femoral stenting, and recent worsening claudication Will check IFEANYI History of COPD: O2 and DuoNeb as needed H/O heart catheter 5 years ago Considering his tobacco abuse risk will continue cycling cardiac enzyme EEG reviewed personally by me showing sinus rhythm with ectopy, LAD, LBBB Tobacco abuse Patient was counseled DVT prophylaxis with SCD and heparin Ruslan Lilly MD Aug 09, 2016 11:34
[2016-08-09] MEDS: ENALAPRILAT 1.25 MG/ML VIAL IV PUSH PRN (21:42)
[2016-08-10] VITALS (9 sets, daily range): BP systolic 144–180; BP diastolic 82–93; PULSE 69–92; RESP 17–21; TEMP 95.2–97.5; O2SAT 92–96
[2016-08-10] MEDS: HEPARIN SODIUM - SQ 10,000 UNITS/ML VIAL SQ SCH ×3 (02:54→18:57)
[2016-08-10] MEDS: ACETAMINOPHEN/HYDROcodone 325 MG/5 MG TAB PO PRN ×5 (02:56→18:57)
[2016-08-10] MEDS: INSULIN ASPART SUPPLEMENTAL SCALE SQ SCH ×4 (06:12→20:25)
[2016-08-10] MEDS: RESP: ALBUTEROL 2.5 MG/IPRATROPIUM 0.5 MG NEB (SCH) NEB ×4 (08:41→19:13)
[2016-08-10] MEDS: SODIUM CHLORIDE 0.9% FLUSH 10 ML FLUSH IV FLUSH SCH ×2 (09:00→20:21)
[2016-08-10] MEDS: amLODIPine BESYLATE 5 MG TAB PO SCH (09:45)
[2016-08-10] MEDS: PRAVASTATIN SOD 80 MG TAB PO SCH (09:45)
[2016-08-10] MEDS: ASPIRIN EC 325 MG TABEC PO SCH (11:00)
[2016-08-10] MEDS: SODIUM CHLOR 0.9% 1000 ML INJ 1,000 ML IV SCH (11:00)
--- NOTE | 2016-08-10 11:22 | MB ---
cc: QUENTIN NELSON DATE OF CONSULTATION: 08/10/2016 REASON FOR CONSULTATION: HISTORY OF PRESENT ILLNESS: The patient is a 65-year-old right-handed man with hypertension, hypercholesterolemia, peripheral vascular disease, stents in his legs he tells me. He does not take an aspirin per day. He had some chest pain five years ago, seen by Dr. Story. He had a cardiac catheterization which he is not sure what the results were. History of bladder cancer but not recently. COPD. About three weeks ago, he had about three seconds of left hand and foot tingling. On Thursday which was several days ago he was sitting in h is room on his bed and felt like he did not know what to do and maybe had about three seconds of trouble talking, and left hand and foot tingling again. He did have a mild headache with that. No chest pain or palpitations. He was seen [place] [address] Grady for near-syncope, new left bundle-branch block. He had a nuclear stress test that was negative in 2011 with normal ejection fraction. He had a history of Hepatitis B. He had bilateral lower extremity stenting by Dr. Mendez in June of 2011. He had an echocardiogram in 2012 that showed ejection fraction of 30 to 35%. He had the chest pain episode in 2011. He has a cardiac cath done which was normal. He had only mild coronary irregularities at that time. He had an echocardiogram done here, however, which showed an ejection fraction of 25-30%. He had an MRI of the brain here that was negative. I reviewed the films, he has never had an old or new stroke. MRA nikolski of [place] was normal. Ultrasound suggested a 50 to 60% stenosis on the left carotid. REVIEW OF SYSTEMS: He denied any diabetes. Known A-fib, CABG, stent, angioplasty, Coumadin, renal disease, thyroid disease, lupus, ulcer, seizure, prior stroke. No seizure-like symptoms. SOCIAL HISTORY: He is not a smoker or drinker. He lives by himself. FAMILY HISTORY: Cancer in his brother. Negative for seizure or stroke. MEDICATIONS He does not take an Aspirin a day. He is on Lisinopril and Norvasc. ALLERGIES: NO KNOWN DRUG ALLERGIES PHYSICAL EXAMINATION: On exam, he has been in sinus rhythm here. Bundle-branch block is noted on EKG. VITAL SIGNS: Afebrile, 77, 18, 175/92. Highest blood pressure initially 231/110. There were no carotid bruits. Heart: Regular rhythm, I did not detect a murmur. Pupils are equal, visual millan full. Extraocular movements intact without nystagmus. Neurologic: Face symmetric. Tongue was midline. There is no drift. He had normal strength in the upper and lower extremities bilaterally. DTRs are 2+ and symmetric at the knees. Toes are downgoing bilaterally. Pinprick and vibratory sense are intact throughout, the left hand and foot. Vibratory sense was intact in the bilateral feet. He is not ataxic on [id number]. He had normal gait. Speech is fluent. He is not aphasic. He had no vision problems with the episode. Dorsalis pedis pulse is normal on the left, absent on the right. I could not get a posterior tibial pulse either on the right side. LABORATORY DATA: Mild disease on the right on arterial Doppler. I note that was the side where he had the poor pulse on his foot. He had an ultrasound which showed 70 to 75% stenosis in 2013 on the left. Back in 2013, CBC is normal. UA is negative, troponin, CPK normal. Triglycerides 800, LDL unable to calculate, basic metabolic profile was normal. LFTs normal. IMPRESSION Possibly a TIA. A small seizure could be another consideration. Will start him on 325 of aspirin. He has been complaining of some claudication in his legs, moreso on the right than the left. Arterial Doppler was negative on that side. He has a good pulse on the left. It could be coming from his LS line. Nevertheless the recent episode is more important. His ejection fraction is low at 25 to 30%. He will need some prolonged cardiac monitoring. I will have cardiology see him as his ejection fraction has been dropping since 2012 precipitously. He did not have a stroke here but TIA is certainly a consideration. Will check a CTA of his neck with a look at the carotid. Will check some additional blood work on him. He should have his lipids lowered. He has been started on a statin here. I will be following him with you in the hospital. We will see if cardiology thinks there is any indication for Coumadin with the low ejection fraction and possible TIA. For now we will put him on an aspirin. MD DWIGHT Shell /10:37 AM /10:57 AM
[2016-08-10] MEDS ORDERED: IOHEXOL 350 MG/ML 10 ML VIAL (for RAD DIAG) IV ONE (11:37)
--- NOTE | 2016-08-10 12:11 | RADRPT ---
EXAM DATE/TIME: 08/10/2016 11:18 [facility] COMPARISON: No previous studies available for comparison. INDICATIONS : Follow up. Left upper extremity numbness. IV CONTRAST: 85 cc Omnipaque 350 (iohexol) IV ; Cumulative dose for multiple exams. RADIATION DOSE: 15.89 CTDIvol (mGy) ; Combined studies MEDICAL HISTORY : Cerebrovascular disease. Hypertension. Carcinoma, bladder. SURGICAL HISTORY : None. ENCOUNTER: Subsequent ACUITY: 3 days PAIN SCALE: 0/10 LOCATION: cranial TECHNIQUE: Volumetric scanning was performed using a multi-row detector CT scanner. The data was post processed with a variety of visualization algorithms including full volume maximum intensity projection, multi -planar sliding thin slab reformation, curved planar reformation, and surface rendering techniques. Using automated exposure control and adjustment of the mA and/or kV according to patient size, radiat ion dose was kept as low as reasonably achievable to obtain optimal diagnostic quality images. FINDINGS: There is excellent visualization of the major intracranial arteries out to the second-order branch ve ssels. There is no evidence for aneurysm, vessel truncation or stenosis, and no evidence for vascula r malformation. CONCLUSION: Negative for occlusion. Amaury Cool MD FACR on August 10, 2016 at 12:05 Board Certified Radiologist. This report was verified electronically.
--- NOTE | 2016-08-10 12:20 | RADRPT ---
EXAM DATE/TIME: 08/10/2016 11:18 [facility] COMPARISON: No previous studies available for comparison. INDICATIONS : Follow up. Left upper extremity numbness. Abnormal ultrasound. IV CONTRAST: 85 cc Omnipaque 350 (iohexol) IV ; Cumulative dose for multiple exams. RADIATION DOSE: 15.89 CTDIvol (mGy) ; Combined studies MEDICAL HISTORY : Cerebrovascular disease. Hypertension. Carcinoma, bladder. SURGICAL HISTORY : None. ENCOUNTER: Subsequent ACUITY: 3 days PAIN SCALE: 0/10 LOCATION: Bilateral neck Elevated flow velocities and ICA/CCA ratios have been found to correlate with increased degrees of vessel stenosis, calculated as percentage of diameter relative to a normal segment of distal ICA/CCA. TECHNIQUE: Volumetric scanning was performed using a multirow detector CT scanner. The data was post processed with a variety of visualization algorithms including full-volume maximum intensity projection, multip lanar sliding thin-slab reformation, curved-planar reformation, and surface-rendering techniques. Us ing automated exposure control and adjustment of the mA and/or kV according to patient size, radiatio n dose was kept as low as reasonably achievable to obtain optimal diagnostic quality images. FINDINGS: AORTIC ARCH: There is a three-vessel origin of the great vessels from the aorta. No evidence of ostial narrowing. RIGHT CAROTID: There is extensive calcific plaque origin of the right internal carotid compromise lumen by 80-90% th e large soft plaque identified as well. LEFT CAROTID: There is a large amount of calcific plaque is present compromising the lumen by approximately 60-70% without significant soft plaque. VERTEBRALS: The vertebral arteries have a symmetric diameter. No stenotic lesions are seen. CONCLUSION: Hemodynamically significant right internal carotid stenosis with extensive soft plaque. Amaury Cool MD FACR on August 10, 2016 at 12:09 Board Certified Radiologist. This report was verified electronically.
--- NOTE | 2016-08-10 14:44 | HHI.PR ---
Subjective Remarks No chest pain, no headache or blurred vision, no acute neurological deficit Patient awaiting workup for lower extremity hypoperfusion Objective Vitals Vital Signs Date Time Temp Pulse Resp B/P Pulse Ox O2 Delivery O2 Flow Rate FiO2 08/10/16 12:09 95.6 92 17 159/84 92 08/10/16 08:42 93 21 08/10/16 08:09 97.5 77 18 175/92 95 08/10/16 04:00 96.8 72 20 144/82 96 08/10/16 00:00 96.8 72 20 144/82 96 08/09/16 23:00 68 08/09/16 20:00 95.6 72 20 186/94 95 08/09/16 15:40 96.9 78 18 157/84 95 08/09/16 15:00 72 I/O 08/09/16 08/09/16 08/09/16 08/10/16 08/10/16 08/10/16 07:00 15:00 23:00 07:00 15:00 23:00 Intake Total 480 ml 480 ml 20 ml 120 ml 480 ml Balance 480 ml 480 ml 20 ml 120 ml 480 ml Intake Oral 480 ml 480 ml 20 ml 120 ml 480 ml # Voids 4 3 2 2 3 # Bowel Movements 1 0 0 Result Diagram: 08/07/1620 08/07/16819 Objective Remarks GENERAL: This is a well-nourished, well-developed patient, in no apparent distress. SKIN: No rashes, warm and dry HEAD: Atraumatic. Normocephalic. EYES: Pupils equal round and reactive. Extraocular motions intact. No scleral icterus. ENT: Nose without bleeding, or drainage, Airway patent. NECK: Trachea midline. Supple CARDIOVASCULAR: Regular rate and rhythm without murmurs, gallops, or rubs. RESPIRATORY: Fair air entry bilaterally. No wheezes, rales, or rhonchi. GASTROINTESTINAL: Abdomen soft, non-tender, nondistended. Positive bowel sounds MUSCULOSKELETAL: Extremities without clubbing, cyanosis, or edema. Pedal pulses appreciated NEUROLOGICAL: Awake and alert. Moves all extremity. Normal speech.no focal neurological deficit A/P Assessment and Plan 08/08 MRI: Only chronic ischemic changes, MRA: Unremarkable 2-D echo showed severely reduced EF 25-30% with diffuse hypokinesis Ultrasound of the carotid showed high grade right ICA stenosis, 50-69% left ICA stenosis IFEANYI>> mild disease on the right side indicated for small vessel disease CT angiogram of the abdominal aorta and lower extremity recommended LFP showed TG of 838 and HDL of 23 Initially I placed consult for [facility] to see patient, then I was told I need to call and discussed the case, I did call Dr. Young and extensively discussed the case with him, I was already ordered CT runoff of the aorta and lower extremity, however he preferred to see the patient first therefore I held on those until patient seen by Dr. Young. Consulted neurology Start Pravachol Blood pressure better today Discussed with the patient in length and explained the finding and the management, 08/09: Appreciate CVS consultation, recommended CTA of the aorta and lower extremity, patient possibly will need revascularization but could be as an outpatient, also he recommended CTA of the neck if indeed the TIA was caused by the right ICA stenosis, awaiting neurology input 08/10: Appreciate neurology consultation home suggesting TIA, possible underlying seizure, he ordered CT of the neck, and consulted cardiology for possible need for anticoagulation considering his low EF 25-30 % Initial A/P: 65 years old male history of hypertension came with Left arm and shoulder numbness with aphasic symptoms most likely TIA Flat head of the bed, permissive hypertension keep at 160-170 systolic goal Neuro check, INH scale, carotid ultrasound, EEG, 2-D echo, MRI/MRA, FLP, A1c Aspirin was given in ED, will continue Appreciate neurology consultation Hypertensive urgency blood pressure 230/110 at admission>> improved Patient was given labetalol 10 mg iv in ED, blood pressure improved to 160/80 Monitor blood pressure Reduced ejection fraction 25-30%, not decompensated Consulted cardiology H/O PVD with left femoral stenting, and recent worsening claudication IFEANYI as above, consulted CV[facility] History of COPD: O2 and DuoNeb as needed H/O heart catheter 5 years ago Considering his tobacco abuse risk will continue cycling cardiac enzyme EEG reviewed personally by me showing sinus rhythm with ectopy, LAD, LBBB Tobacco abuse Patient was counseled DVT prophylaxis with SCD and heparin Ruslan Lilly MD Aug 10, 2016 14:44
[2016-08-10] MEDS ORDERED: RAMIPRIL 5 MG CAP PO ONE (16:45)
[2016-08-10] MEDS: CARVEDILOL 3.125 MG TAB PO SCH (20:20)
--- NOTE | 2016-08-10 21:41 | HM ---
Date Performed: 08/07/2016 Time Performed: 22:23:00 HOOKUP DATE: 08/07/16 10:23:00 PM [facility] ANALYSIS START TIME: 08/07/2016 10:28:00 PM ANALYSIS END TIME: 08/08/2016 10:24:44 PM PATIENT AGE: 65 PATIENT HEIGHT PATIENT WEIGHT DRUG LIST PATIENT DIAGNOSIS: TIA TEST NARRATIVE: The patient's average heart rate was 77 BPM. Heart rates greater than 120 B PM were noted < 1% of the time. No episodes of bradycardia were noted. No pauses exceeding 2.0 s econds were noted. 371 ventricular ectopics, which represented < 1% of the total beat count, were noted. The highest ventricular ectopic frequency occurred from 11:00 PM to 12:00 AM Fri. During th is time 27 VE(s) occurred. Ventricular ectopics were observed as 359 isolated beat(s) and as 6 coupl et(s). No runs were noted. 3396 supraventricular ectopics, which represented 3% of the total susan t count, were noted. The highest supraventricular ectopic frequency occurred from 04:00 AM to 05:00 AM Fri. During this time 468 SVE(s) occurred. No episodes of ST depression (defined as -1.0 mm o r more) were noted in channel 1. No episodes of ST depression (defined as -1.0 mm or more) were note d in channel 2. No episodes of ST depression (defined as -1.0 mm or more) were noted in channel 3. TEST INTERPRETATION: Sinus rhythm PACs No pause No ventricular tachycardia No pause observed There is no entry in the diary Signed by : Shilpa Najera
[2016-08-11] VITALS (7 sets, daily range): BP systolic 136–165; BP diastolic 67–97; PULSE 66–71; RESP 18; TEMP 96–97.2; O2SAT 94–97
[2016-08-11] MEDS: SODIUM CHLOR 0.9% 1000 ML INJ 1,000 ML IV SCH ×2 (00:20→13:22)
[2016-08-11] MEDS: HEPARIN SODIUM - SQ 10,000 UNITS/ML VIAL SQ SCH ×3 (02:49→18:20)
[2016-08-11] MEDS: ACETAMINOPHEN/HYDROcodone 325 MG/5 MG TAB PO PRN ×5 (02:49→22:50)
[2016-08-11] MEDS: ENALAPRILAT 1.25 MG/ML VIAL IV PUSH PRN (03:49)
[2016-08-11] MEDS: INSULIN ASPART SUPPLEMENTAL SCALE SQ SCH ×4 (06:49→21:00)
--- NOTE | 2016-08-11 07:14 | PD.CARD.PN ---
Subjective Subjective Remarks Feels ok this a.m. Objective Medications Current Medications Medications (Trade) Dose Ordered Sig/Angel Route Start Time Stop Time Status Last Admin (NS Flush) 2 ml BID IV FLUSH 08/07/16 21:00 08/10/16 09:00 (NS Flush) 2 ml UNSCH PRN IV FLUSH 08/07/16 10:15 (D50w (Vial) Inj) 25 ml UNSCH PRN IV PUSH 08/07/16 10:15 (Glucagon Inj) 1 mg UNSCH PRN OTHER 08/07/16 10:15 (Heparin Inj) 5,000 units Q8H SQ 08/07/16 11:00 08/11/16 02:49 ([place] 5-325 Mg) 1 tab Q4H PRN PO 08/08/16 00:15 08/11/16 06:49 (Norvasc) 5 mg DAILY PO 08/08/16 12:45 08/10/16 09:45 (Vasotec Inj) 1.25 mg Q6H PRN IV PUSH 08/08/16 12:45 08/11/16 03:49 (Pravachol) 80 mg DAILY PO 08/08/16 21:00 08/10/16 09:45 Aspirin 325 mg 325 mg DAILY PO 08/10/16 11:00 08/10/16 11:00 (NS 1000 ml Inj) 1,000 ml @ 75 mls/hr [id number] IV 08/10/16 11:00 08/11/16 00:20 (Coreg) 3.125 mg Q12HR PO 08/10/16 21:00 08/10/16 20:20 Vital Signs / I&O Vital Signs Date Time Temp Pulse Resp B/P Pulse Ox O2 Delivery O2 Flow Rate FiO2 08/11/16 04:00 96.1 68 18 165/82 94 08/11/16 00:00 96.0 66 18 136/74 96 08/10/16 23:00 71 08/10/16 20:38 162/88 08/10/16 20:00 95.2 69 18 180/93 95 08/10/16 16:00 96.7 73 21 154/82 94 08/10/16 12:09 95.6 92 17 159/84 92 08/10/16 08:42 93 21 08/10/16 08:09 97.5 77 18 175/92 95 I/O 08/10/16 08/10/16 08/10/16 08/11/16 08/11/16 08/11/16 07:00 15:00 23:00 07:00 15:00 23:00 Intake Total 120 ml 480 ml 300 ml Balance 120 ml 480 ml 300 ml Intake Oral 120 ml 480 ml 300 ml # Voids 2 3 1 3 # Bowel Movements 0 1 Physical Exam GENERAL: Well-nourished, well-developed patient. SKIN: Warm and dry. HEAD: Normocephalic. EYES: No scleral icterus. No injection or drainage. NECK: Supple, trachea midline. No JVD or lymphadenopathy. CARDIOVASCULAR: Regular rate and rhythm without murmurs, gallops, or rubs. RESPIRATORY: Breath sounds equal bilaterally. No accessory muscle use. GASTROINTESTINAL: Abdomen soft, non-tender, nondistended. EXTREMITIES: No cyanosis, or edema. NEUROLOGICAL: Awake, alert, and oriented x 3. Non-focal. Laboratory Date/Time Procedure Status Source Growth 08/07/16 08:15 Urine Culture - Final Complete Urine Catheterized Urine Imaging Last Impressions Neck CTA 08/10/16 1039 Signed Impressions: Service Date/Time: Wednesday, August 10, 2016 11:18 - CONCLUSION: Hemodynamically significant right internal carotid stenosis with extensive soft plaque. Amaury Cool MD FACR Head CTA 08/10/16 0000 Signed Impressions: Service Date/Time: Wednesday, August 10, 2016 11:18 - CONCLUSION: Negative for occlusion. Amaury Cool MD FACR Head CT 08/07/16 0812 Signed Impressions: Service Date/Time: July 08:56 - CONCLUSION: No acute intracranial findings. Moris Lam MD Chest X-Ray 08/07/16 0812 Signed Impressions: Service Date/Time: July 08:18 - CONCLUSION: 1. No acute cardiopulmonary disease. Rafa Santiago MD Head Magnetic Resonance Angiography 08/07/16 0000 Signed Impressions: Service Date/Time: July 15:20 - CONCLUSION: 1. Unremarkable MR angiography of the brain. Rafa Santiago MD Carotid Artery Ultrasound 08/07/16 0000 Signed Impressions: Service Date/Time: July 10:11 - CONCLUSION: 1. Diffuse severe calcified plaque involving both carotid arteries. High grade stenosis suspected involving the right ICA with 50-69%% stenosis involving the left ICA. Consider CTA of the carotid arteries to further evaluate. 2. Antegrade flow involving both vertebral arteries. Carlos Laguna Jr., MD Brain MRI 08/07/16 0000 Signed Impressions: Service Date/Time: July 15:20 - CONCLUSION: 1. No evidence of acute intracranial pathology. Chronic ischemic changes as above. Rafa Santiago MD Assessment and Plan Problem List: (1) TIA (transient ischemic attack) Assessment and Plan: IVETTE stenosis seen on CTA. (2) Cardiomyopathy Assessment and Plan: EF 25-30%, pending nuclear stress this morning. On carvedilol. (3) Narrow complex tachycardia Assessment and Plan: Short 4-5 beat runs of narrow complex tachycardia seen on tele review. Carvedilol initiated, nuclear stress pending. Denies palpitations. Assessment and Plan Assessment and plan d/w pt., RN, Dr. Najera. Problem Qualifiers (1) TIA (transient ischemic attack): Qualified Code: G45.9 - Transient cerebral ischemia, unspecified type (2) Cardiomyopathy: Qualified Code: I42.9 - Cardiomyopathy, unspecified type Susan Betancourt Aug 11, 2016 07:14
[2016-08-11] MEDS: RESP: ALBUTEROL 2.5 MG/IPRATROPIUM 0.5 MG NEB (SCH) NEB ×2 (07:35→11:27)
[2016-08-11 07:56] LABS: FREE T4 0.9 NG/DL (0.76-1.46)
[2016-08-11] MEDS: CARVEDILOL 3.125 MG TAB PO SCH ×2 (08:15→22:03)
[2016-08-11] MEDS: PRAVASTATIN SOD 80 MG TAB PO SCH (08:15)
[2016-08-11] MEDS: SODIUM CHLORIDE 0.9% FLUSH 10 ML FLUSH IV FLUSH SCH ×2 (08:15→21:00)
[2016-08-11] MEDS: amLODIPine BESYLATE 5 MG TAB PO SCH (08:15)
[2016-08-11] MEDS: ASPIRIN EC 325 MG TABEC PO SCH (08:15)
--- NOTE | 2016-08-11 08:35 | HHI.PR ---
Objective Vital Signs Date Time Temp Pulse Resp B/P Pulse Ox O2 Delivery O2 Flow Rate FiO2 08/11/16 08:13 97.2 69 18 141/97 95 08/11/16 07:36 97 08/11/16 04:00 96.1 68 18 165/82 94 08/11/16 00:00 96.0 66 18 136/74 96 08/10/16 23:00 71 08/10/16 20:38 162/88 08/10/16 20:00 95.2 69 18 180/93 95 08/10/16 16:00 96.7 73 21 154/82 94 08/10/16 12:09 95.6 92 17 159/84 92 08/10/16 08:42 93 21 I/O 08/10/16 08/10/16 08/10/16 08/11/16 08/11/16 08/11/16 07:00 15:00 23:00 07:00 15:00 23:00 Intake Total 120 ml 480 ml 300 ml Balance 120 ml 480 ml 300 ml Intake Oral 120 ml 480 ml 300 ml # Voids 2 3 1 3 # Bowel Movements 0 1 Result Diagram: 08/07/16 0820 08/07/16 0820 Other Results vff 5/5 left and right nl speech Assessment and Plan Assessment and Plan imp r ica 80-90% vascular notified low ef cards on case holter neg eeg nl on statin needs r cea Rafa Coates MD Aug 11, 2016 08:35
--- NOTE | 2016-08-11 08:54 | MB ---
cc: MIMI YARBROUGH HANSCY M.D. WILSON, VANCE E. M.D. NEMOU, KHALIL MD DATE OF CONSULTATION 08/10/2016 REASON FOR CONSULTATION Heart failure. TIA. Severe peripheral vascular disease. HISTORY OF PRESENT ILLNESS Mr. Peters is a 65-year-old gentleman with history of severe peripheral vascular disease, hyperlipidemia, high blood pressure who stopped smoking around 10 years ago. He had previous stents placed in both legs in the past by Dr. Mendez. His last office visit with Dr. Story was over five years ago. He came to the emergency room due to dizziness. The patient's condition significantly improved during the hospitalization. Left carotid has 50-60% stenosis. Echocardiogram was done in the 30s that indicated ejection fraction of around 25-30%. I was consulted for further evaluation and management. The chart was reviewed. The patient was evaluated. ALLERGIES None. SOCIAL HISTORY As mentioned before, the patient stopped smoking 10 years ago. FAMILY HISTORY Noncontributory to her current medical condition. MEDICATIONS 1. Amlodipine 5 mg a day. 2. Aspirin 325 mg a day. 3. He is on heparin subcu. 4. He is on Pravachol 80 mg a day. REVIEW OF SYSTEMS Refers no chest pain, no chest discomfort. Shortness of breath on minimal activity leg pain also on minimal activity. The patient can barely walk one block. PHYSICAL EXAMINATION GENERAL: Alert, fully oriented. VITAL SIGNS: Blood pressure 154/82, pulse 73, respiratory rate 20. LUNGS: Ventilated. CARDIOVASCULAR: S1, S2. No gallop, no murmur. ABDOMEN: Soft. No mass. No bruit. EXTREMITIES: No edema. ELECTROCARDIOGRAM Sinus rhythm, left bundle-branch block, diffuse ST changes. LABORATORY DATA Hemoglobin is 16.2, white blood cell 7.9. Potassium is 4.8, creatinine 1.05. Troponin less than 0.02. INR 1.0. ASSESSMENT AND RECOMMENDATIONS Mr. Peters has a history of severe peripheral vascular disease. Last echo around 2011, was around 40-45%. His current echo is around 25%. He has severe peripheral vascular disease. He has a left bundle-branch block. Ischemic cardiomyopathy should be also suspected. At this point my recommendation is nuclear stress study. I am going to initiate OSEAS inhibitor and beta jass. The patient's blood pressure is in the 150s. His case was extensively discussed with him. The gentleman apparently wants to go home and does not want to wait for the study. I explained to him that we have to figure what is going on with him before he can go home. If he is still in the hospital, I will follow him during hospitalization. Shilpa Najera MD HS/SSB /4:34 PM /8:45 AM
--- NOTE | 2016-08-11 10:00 | HHI.PR ---
Subjective Remarks Stable resting in bed, no tingling or numbness no weakness in the arms or legs Patient is anxious about doing the CEA surgery, explained to him the risk and the benefits He is going for stress test as part of ischemic workup and clearance for surgery Patient afebrile overnight, no chest pain Objective Vitals Vital Signs Date Time Temp Pulse Resp B/P Pulse Ox O2 Delivery O2 Flow Rate FiO2 08/11/16 09:15 67 08/11/16 08:13 97.2 69 18 141/97 95 08/11/16 07:36 97 08/11/16 04:00 96.1 68 18 165/82 94 08/11/16 00:00 96.0 66 18 136/74 96 08/10/16 23:00 71 08/10/16 20:38 162/88 08/10/16 20:00 95.2 69 18 180/93 95 08/10/16 16:00 96.7 73 21 154/82 94 08/10/16 12:09 95.6 92 17 159/84 92 I/O 08/10/16 08/10/16 08/10/16 08/11/16 08/11/16 08/11/16 07:00 15:00 23:00 07:00 15:00 23:00 Intake Total 120 ml 480 ml 300 ml Balance 120 ml 480 ml 300 ml Intake Oral 120 ml 480 ml 300 ml # Voids 2 3 1 3 # Bowel Movements 0 1 Result Diagram: 08/07/1681908/07/1620 Objective Remarks GENERAL: This is a well-nourished, well-developed patient, in no apparent distress. SKIN: No rashes, warm and dry HEAD: Atraumatic. Normocephalic. EYES: Pupils equal round and reactive. Extraocular motions intact. No scleral icterus. ENT: Nose without bleeding, or drainage, Airway patent. NECK: Trachea midline. Supple CARDIOVASCULAR: Regular rate and rhythm without murmurs, gallops, or rubs. RESPIRATORY: Fair air entry bilaterally. No wheezes, rales, or rhonchi. GASTROINTESTINAL: Abdomen soft, non-tender, nondistended. Positive bowel sounds MUSCULOSKELETAL: Extremities without clubbing, cyanosis, or edema. Pedal pulses appreciated NEUROLOGICAL: Awake and alert. Moves all extremity. Normal speech.no focal neurological deficit A/P Assessment and Plan 08/08 MRI: Only chronic ischemic changes, MRA: Unremarkable 2-D echo showed severely reduced EF 25-30% with diffuse hypokinesis Ultrasound of the carotid showed high grade right ICA stenosis, 50-69% left ICA stenosis IFEANYI>> mild disease on the right side indicated for small vessel disease CT angiogram of the abdominal aorta and lower extremity recommended LFP showed TG of 838 and HDL of 23 Initially I placed consult for [facility] to see patient, then I was told I need to call and discussed the case, I did call Dr. Young and extensively discussed the case with him, I was already ordered CT runoff of the aorta and lower extremity, however he preferred to see the patient first therefore I held on those until patient seen by Dr. Young. Consulted neurology Start Pravachol Blood pressure better today Discussed with the patient in length and explained the finding and the management, 08/09: Appreciate [facility]S consultation, recommended CTA of the aorta and lower extremity, patient possibly will need revascularization but could be as an outpatient, also he recommended CTA of the neck if indeed the TIA was caused by the right ICA stenosis, awaiting neurology input 08/10: Appreciate neurology consultation home suggesting TIA, possible underlying seizure, he ordered CT of the neck, and consulted cardiology for possible need for anticoagulation considering his low EF 25-30 % 08/11: CTA of the neck confirmed right ICA occlusion, neurology recommended CEA JENS, vascular surgery was notified yesterday, appreciate cardiology consultation patient is going for stress testing today, started on carvedilol he was given 1 dose of ramipril, we will follow closely, Initial A/P: 65 years old male history of hypertension came with Left arm and shoulder numbness with aphasic symptoms most likely TIA Flat head of the bed, permissive hypertension keep at 160-170 systolic goal Neuro check, INH scale, carotid ultrasound, EEG, 2-D echo, MRI/MRA, FLP, A1c Aspirin was given in ED, will continue Appreciate neurology consultation Hypertensive urgency blood pressure 230/110 at admission>> improved Patient was given labetalol 10 mg iv in ED, blood pressure improved to 160/80 Monitor blood pressure Reduced ejection fraction 25-30%, not decompensated Consulted cardiology H/O PVD with left femoral stenting, and recent worsening claudication IFEANYI as above, consulted [facility] History of COPD: O2 and DuoNeb as needed H/O heart catheter 5 years ago Considering his tobacco abuse risk will continue cycling cardiac enzyme EEG reviewed personally by me showing sinus rhythm with ectopy, LAD, LBBB Tobacco abuse Patient was counseled DVT prophylaxis with SCD and heparin Ruslan Lilly MD Aug 11, 2016 10:00
[2016-08-11 10:23] LABS: ALBUMIN SPE 4.51 GM/DL (3.50-5.00); ALPHA 1 GLOBULIN 0.18 GM/DL (0.11-0.29); ALPHA 2 GLOBULIN 0.7 GM/DL (0.22-1.00); BETA GLOBULINS (SPE) 0.79 GM/DL (0.53-1.03)
--- NOTE | 2016-08-11 10:32 | MG ---
cc: QUENTIN NELSON M.D. Lab No: [id number] Date: 08/10/2016 Age: 65 Sex: M Race: A 65-year-old with left arm numbness and tingling, right carotid stenosis. [place], heparin and aspirin. An 8-9 Hz 60 microvolt symmetric posterior rhythm is seen. I do not see any right hemisphere asymmetries, no epileptiform or seizure activity is noted. Photic stimulation was performed without significant posterior driving. Hyperventilation was not performed. The patient fell asleep and snored but did not reach stage II sleep. IMPRESSION Normal awake and asleep EEG, no evidence for focal or diffuse abnormality. Prominent snoring was noted. Sleep apnea could be considered. MD SELINA Shell/TLL /9:35 PM /10:27 AM
[2016-08-11] MEDS ORDERED: REGADENOSON INJ 0.4 MG/5 ML SYR ONE (11:15)
[2016-08-11 13:56] LABS: ANA SCREEN NEG (NEG)
--- NOTE | 2016-08-11 15:01 | RADRPT ---
EXAM DATE/TIME: 08/11/2016 11:05 [facility] COMPARISON: No previous studies available for comparison. INDICATIONS : Left arm numbness and chest pressure for one day. Congestive heart failure. Left bundle branch block. DOSE: 27.2 mCi Tc99m Myoview at stress. 8.5 mCi Tc99m Myoview at rest. 0.4 mg Lexiscan STRESS SYMPTOMS: Headache, tired feeling, blurred vision and chest heaviness. EJECTION FRACTION: 28% MEDICAL HISTORY : Hypertension. Chronic obstructive pulmonary disease. Peripheral vascular disease. SURGICAL HISTORY : Cardiac catherization. Left femoral stent. ENCOUNTER: Initial ACUITY: 1 day PAIN SCALE: 3/10 LOCATION: Left chest TECHNIQUE: The patient underwent pharmacologic stress with infusion of prescribed dose. Continuous ECG tracing was monitored during stress. Gated SPECT imaging was performed after stress and conventional SPECT i maging was performed at rest. The examination was performed on a SPECT/CT scanner, both attenuation and non-corrected datasets were reviewed. FINDINGS: There is depressed ejection fraction of 28% with global hypokinesis the best perfused myocardium is t he lateral wall. There is minimal redistribution in the anterior septal region. Moderate gut activit y does obscure the inferior wall. CONCLUSION: Minimal redistribution as described above. Ventricular cavity is dilated the ejection fraction of 20 %. RISK CATEGORY: Low (<1% Annual Mortality Rate) Amaury Cool MD FACR on August 11, 2016 at 14:58 Board Certified Radiologist. This report was verified electronically.
[2016-08-11 15:55] LABS: RAPID PLASMA REAGIN SCREEN NON-REACTIVE (NON-REACTVE)
[2016-08-12] VITALS (9 sets, daily range): BP systolic 133–159; BP diastolic 67–91; PULSE 63–74; RESP 16–18; TEMP 96.2–98.5; O2SAT 93–95
[2016-08-12] MEDS: SODIUM CHLOR 0.9% 1000 ML INJ 1,000 ML IV SCH ×2 (03:21→16:20)
[2016-08-12] MEDS: HEPARIN SODIUM - SQ 10,000 UNITS/ML VIAL SQ SCH ×3 (03:21→18:04)
[2016-08-12] MEDS: ACETAMINOPHEN/HYDROcodone 325 MG/5 MG TAB PO PRN ×5 (03:23→22:16)
[2016-08-12] MEDS: INSULIN ASPART SUPPLEMENTAL SCALE SQ SCH ×4 (07:00→21:00)
--- NOTE | 2016-08-12 07:46 | HHI.PR ---
Subjective Remarks SR Objective Vital Signs Date Time Temp Pulse Resp B/P Pulse Ox O2 Delivery O2 Flow Rate FiO2 08/12/16 04:36 98.0 70 16 152/71 95 08/12/16 01:29 96.2 68 16 159/85 95 08/11/16 20:29 97.1 69 18 153/67 95 08/11/16 15:43 97.2 71 18 142/69 95 08/11/16 09:15 67 08/11/16 08:13 97.2 69 18 141/97 95 I/O 08/11/16 08/11/16 08/11/16 08/12/16 08/12/16 08/12/16 07:00 15:00 23:00 07:00 15:00 23:00 # Voids 3 4 4 # Bowel Movements 1 1 0 Other Results no new spells of left numb no hx vision change r eye Objective Remarks awake nl speech 5/5 t/o nl speech Assessment and Plan Assessment and Plan imp r ica 80-90% vascular notified low ef cards on case sr so far holter neg eeg nl on statin needs r cea luci awaiting this Rafa Palencia MD Aug 12, 2016 07:45
[2016-08-12] MEDS: CARVEDILOL 3.125 MG TAB PO SCH ×2 (08:20→21:14)
[2016-08-12] MEDS: ASPIRIN EC 325 MG TABEC PO SCH (08:20)
[2016-08-12] MEDS: PRAVASTATIN SOD 80 MG TAB PO SCH (08:21)
[2016-08-12] MEDS: SODIUM CHLORIDE 0.9% FLUSH 10 ML FLUSH IV FLUSH SCH ×2 (08:21→21:14)
[2016-08-12] MEDS: amLODIPine BESYLATE 5 MG TAB PO SCH (08:21)
--- NOTE | 2016-08-12 08:48 | PD.VS.PN ---
Subjective Subjective/Hospital Course No new TIA symptoms. Objective Vitals/I&O Date Time Temp Pulse Resp B/P Pulse Ox O2 Delivery O2 Flow Rate FiO2 08/12/16 08:30 96.9 74 18 148/91 93 08/12/16 04:36 98.0 70 16 152/71 95 08/12/16 01:29 96.2 68 16 159/85 95 08/11/16 20:29 97.1 69 18 153/67 95 08/11/16 15:43 97.2 71 18 142/69 95 08/11/16 09:15 67 Physical Exam mild lip droop. Imaging Last 48 hours Impressions Myocardial Perfusion Scan Nuc Med 08/11/16 0000 Signed Impressions: Service Date/Time: Thursday, August 11, 2016 11:05 - CONCLUSION: Minimal redistribution as described above. Ventricular cavity is dilated the ejection fraction of 20%%. RISK CATEGORY: Low (<1%% Annual Mortality Rate) Amaury Cool MD FACR Neck CTA 08/10/16 1039 Signed Impressions: Service Date/Time: Wednesday, August 10, 2016 11:18 - CONCLUSION: Hemodynamically significant right internal carotid stenosis with extensive soft plaque. Amaury Cool MD FACR Assessment and Plan Plan 65 year old male with hx of possible TIA symptoms with left upper extremity paresthesias and weakness that resolved within a minutes time and more unclear expressive aphasia symptoms. He has a high grade right carotid stenosis by CTA. I discussed risk of CVA, , DE, bleeding and cranial nerve injury with performing a right CEA to the patient at the bedside and his niece (Bertha) by phone. He agreed to have surgery and will be scheduled for a right Carotid Endarterectomy this week (Th AM). In the interim a CTA of the aorta with runoff could be ordered as he does not drive and has significant claudication by his account with his activities of daily living. 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
--- NOTE | 2016-08-12 12:42 | HHI.PR ---
Subjective Remarks Doing well sitting on the edge of the bed in no acute distress Plan for CEA on Objective Vitals Vital Signs Date Time Temp Pulse Resp B/P Pulse Ox O2 Delivery O2 Flow Rate FiO2 08/12/16 11:21 64 08/12/16 08:30 96.9 74 18 148/91 93 08/12/16 04:36 98.0 70 16 152/71 95 08/12/16 01:29 96.2 68 16 159/85 95 08/11/16 20:29 97.1 69 18 153/67 95 08/11/16 15:43 97.2 71 18 142/69 95 I/O 08/11/16 08/11/16 08/11/16 08/12/16 08/12/16 08/12/16 07:00 15:00 23:00 07:00 15:00 23:00 # Voids 3 4 4 # Bowel Movements 1 1 0 Objective Remarks GENERAL: This is a well-nourished, well-developed patient, in no apparent distress. SKIN: No rashes, warm and dry HEAD: Atraumatic. Normocephalic. EYES: Pupils equal round and reactive. Extraocular motions intact. No scleral icterus. ENT: Nose without bleeding, or drainage, Airway patent. NECK: Trachea midline. Supple CARDIOVASCULAR: Regular rate and rhythm without murmurs, gallops, or rubs. RESPIRATORY: Fair air entry bilaterally. No wheezes, rales, or rhonchi. GASTROINTESTINAL: Abdomen soft, non-tender, nondistended. Positive bowel sounds MUSCULOSKELETAL: Extremities without clubbing, cyanosis, or edema. Pedal pulses appreciated NEUROLOGICAL: Awake and alert. Moves all extremity. Normal speech.no focal neurological deficit A/P Assessment and Plan 08/08 MRI: Only chronic ischemic changes, MRA: Unremarkable 2-D echo showed severely reduced EF 25-30% with diffuse hypokinesis Ultrasound of the carotid showed high grade right ICA stenosis, 50-69% left ICA stenosis IFEANYI>> mild disease on the right side indicated for small vessel disease CT angiogram of the abdominal aorta and lower extremity recommended LFP showed TG of 838 and HDL of 23 Initially I placed consult for [facility] to see patient, then I was told I need to call and discussed the case, I did call Dr. Young and extensively discussed the case with him, I was already ordered CT runoff of the aorta and lower extremity, however he preferred to see the patient first therefore I held on those until patient seen by Dr. Young. Consulted neurology Start Pravachol Blood pressure better today Discussed with the patient in length and explained the finding and the management, 08/09: Appreciate [facility] consultation, recommended CTA of the aorta and lower extremity, patient possibly will need revascularization but could be as an outpatient, also he recommended CTA of the neck if indeed the TIA was caused by the right ICA stenosis, awaiting neurology input 08/10: Appreciate neurology consultation home suggesting TIA, possible underlying seizure, he ordered CT of the neck, and consulted cardiology for possible need for anticoagulation considering his low EF 25-30 % 08/11: CTA of the neck confirmed right ICA occlusion, neurology recommended CEA JENS, vascular surgery was notified yesterday, appreciate cardiology consultation patient is going for stress testing today, started on carvedilol he was given 1 dose of ramipril, we will follow closely, 08/12: Clinically doing okay , stress test came back without confirmed reversible defect but dilated left ventricle and EF of 20%, neurology recommending CEA JENS , [facility] decided surgery on Initial A/P: 65 years old male history of hypertension came with Left arm and shoulder numbness with aphasic symptoms most likely TIA Flat head of the bed, permissive hypertension keep at 160-170 systolic goal Neuro check, INH scale, carotid ultrasound, EEG, 2-D echo, MRI/MRA, FLP, A1c Aspirin was given in ED, will continue Appreciate neurology consultation Hypertensive urgency blood pressure 230/110 at admission>> improved Patient was given labetalol 10 mg iv in ED, blood pressure improved to 160/80 Monitor blood pressure Reduced ejection fraction 25-30%, not decompensated Consulted cardiology H/O PVD with left femoral stenting, and recent worsening claudication IFEANYI as above, consulted [facility] History of COPD: O2 and DuoNeb as needed H/O heart catheter 5 years ago Considering his tobacco abuse risk will continue cycling cardiac enzyme EEG reviewed personally by me showing sinus rhythm with ectopy, LAD, LBBB Tobacco abuse Patient was counseled DVT prophylaxis with SCD and heparin Ruslan Lilly MD Aug 12, 2016 12:42
[2016-08-12 17:48] LABS: BICARBONATE 28.9 MEQ/L (21.0-32.0); POTASSIUM 4.4 MEQ/L (3.5-5.1)
[2016-08-12] MEDS ORDERED: IOHEXOL 350 MG/ML 10 ML VIAL (for RAD DIAG) IV ONE (23:09)
--- NOTE | 2016-08-12 23:30 | RADRPT ---
EXAM DATE/TIME: 08/12/2016 20:36 [place] COMPARISON: No previous studies available for comparison. INDICATIONS : Bilateral leg pain. IV CONTRAST: 100 cc Omnipaque 350 (iohexol) IV RADIATION DOSE: 14.22 CTDIvol (mGy) MEDICAL HISTORY : Cerebrovascular disease. Hypertension. Chronic obstructive pulmonary disease.Hepatitis B. Carcinoma, bladder. SURGICAL HISTORY : Arterial stents. ENCOUNTER: Initial ACUITY: 1 day PAIN SCALE: 7/10 LOCATION: Bilateral legs TECHNIQUE: Volumetric scanning was performed using a multi-row detector CT scanner. The data was post processed with a variety of visualization algorithms including full volume maximum intensity projection, multi -planar sliding thin slab reformation, curved planar reformation, and surface rendering techniques. Using automated exposure control and adjustment of the mA and/or kV according to patient size, radiat ion dose was kept as low as reasonably achievable to obtain optimal diagnostic quality images. FINDINGS: Aorta/inflow: Diffuse calcified and noncalcified atheromatous plaque throughout the aorta and its major branches. N o hemodynamically significant stenosis involving the aorta. The right common iliac artery shows mild luminal narrowing at its origin. This is approximately 20%. The distal external iliac artery shows co ncentric calcified plaque degenerating a 60-70% stenosis. The right internal iliac artery is highly s tenotic at its origin. The left common iliac artery contains a stent. Beam hardening artifact from th e stent generates difficulty in evaluating the patency. It is felt to be patent. The left external il iac artery is calcified but patent. The left internal iliac artery is stenotic. The celiac, SMA, and REBECCA are patent. A moderate stenosis is observed involving the right renal artery due to partially maci cified atheromatous plaque. The left is patent. Right lower extremity: The common femoral artery and profunda femoris are calcified but patent. Severe diffuse SFA disease. The SFA has areas of short segment occlusion as well as high-grade stenosis scattered throughout. The popliteal artery is patent. 3 vessel runoff to the foot. Left lower extremity: The common femoral artery and profunda femoris are mildly calcified but patent. Multilevel SFA diseas e is observed. No significant stenosis is 60-70% within the abductor canal. The popliteal artery is p atent. There is a high origin to the trifurcations occurring at the level of the knee joint. There is a common trunk supplying the anterior tibial artery and peroneal artery. Posterior tibial artery has its own origin. 3 vessel runoff to the foot. Other structures: The liver is diffusely low in attenuation. No mass or ductal dilatation. A 2 cm left lower pole renal cyst. CONCLUSION: 1. Diffuse atherosclerotic plaque with tandem right inflow stenoses. This is most pronounced within t he external iliac as detailed above. Left inflow is patent. A left common iliac stent is somewhat ledesma ited in its evaluation due to beam hardening artifact. It is felt to be patent. 2. Right lower extremity shows diffuse severe SFA disease including short segment occlusions. Poplite al artery and trifurcation vessels are patent. 3. Left lower extremity shows moderate diffuse SFA disease with 70% stenosis in the abductor canal. P opliteal artery and trifurcation vessels are patent. 4. Moderate stenosis of the right renal artery. 5. Hepatic steatosis. Carlos Laguna Jr., MD on August 12, 2016 at 23:12 Board Certified Radiologist. This report was verified electronically.
[2016-08-13] MEDS: HEPARIN SODIUM - SQ 10,000 UNITS/ML VIAL SQ SCH ×4 (03:00→22:26)
[2016-08-13] MEDS: ACETAMINOPHEN/HYDROcodone 325 MG/5 MG TAB PO PRN ×4 (05:50→20:49)
[2016-08-13] MEDS: INSULIN ASPART SUPPLEMENTAL SCALE SQ SCH ×4 (06:23→21:00)
[2016-08-13 08:35] VITALS: BP 140/81; PULSE 70; RESP 18; TEMP 96.7; O2SAT 96
--- NOTE | 2016-08-13 08:38 | HHI.PR ---
Subjective Remarks SR Objective Vital Signs Date Time Temp Pulse Resp B/P Pulse Ox O2 Delivery O2 Flow Rate FiO2 08/13/16 08:35 96.7 70 18 140/81 96 08/12/16 20:26 70 08/12/16 20:00 97.2 71 18 151/81 94 08/12/16 16:17 98.5 70 18 133/67 93 08/12/16 13:01 97.7 68 18 155/83 93 08/12/16 11:21 64 I/O 08/12/16 08/12/16 08/12/16 08/13/16 08/13/16 08/13/16 07:00 15:00 23:00 07:00 15:00 23:00 Intake Total 480 ml 360 ml 240 ml Balance 480 ml 360 ml 240 ml Intake Oral 480 ml 360 ml 240 ml IV Total 0 ml # Voids 4 4 2 3 # Bowel Movements 0 Result Diagram: 08/12/16 1641 Objective Remarks awake nl speech 09/12 t/o nl speech no change no new spells Assessment and Plan Assessment and Plan imp r ica 80-90% vascular notified low ef cards on case sr so far holter neg eeg nl on statin needs r cea luci awaiting this for am stable neuro Rafa Palencia MD Aug 13, 2016 08:38
[2016-08-13] MEDS: ASPIRIN EC 325 MG TABEC PO SCH (09:17)
[2016-08-13] MEDS: PRAVASTATIN SOD 80 MG TAB PO SCH (09:17)
[2016-08-13] MEDS: CARVEDILOL 3.125 MG TAB PO SCH ×2 (09:17→21:23)
[2016-08-13] MEDS: amLODIPine BESYLATE 5 MG TAB PO SCH (09:17)
[2016-08-13] MEDS: SODIUM CHLOR 0.9% 1000 ML INJ 1,000 ML IV SCH ×2 (09:18→19:00)
[2016-08-13] MEDS: SODIUM CHLORIDE 0.9% FLUSH 10 ML FLUSH IV FLUSH SCH ×2 (09:19→20:48)
[2016-08-13 10:14] VITALS: PULSE 55
--- NOTE | 2016-08-13 10:31 | HHI.PR ---
Subjective Remarks stable, afebrile, no acute complaint, plan for CEA tomorrow Objective Vitals Vital Signs Date Time Temp Pulse Resp B/P Pulse Ox O2 Delivery O2 Flow Rate FiO2 08/13/16 10:14 55 08/13/16 08:35 96.7 70 18 140/81 96 08/12/16 20:26 70 08/12/16 20:00 97.2 71 18 151/81 94 08/12/16 16:17 98.5 70 18 133/67 93 08/12/16 13:01 97.7 68 18 155/83 93 08/12/16 11:21 64 I/O 08/12/16 08/12/16 08/12/16 08/13/16 08/13/16 08/13/16 07:00 15:00 23:00 07:00 15:00 23:00 Intake Total 480 ml 360 ml 240 ml Balance 480 ml 360 ml 240 ml Intake Oral 480 ml 360 ml 240 ml IV Total 0 ml # Voids 4 4 2 3 # Bowel Movements 0 Result Diagram: 08/12/16 1641 Objective Remarks GENERAL: This is a well-nourished, well-developed patient, in no apparent distress. SKIN: No rashes, warm and dry HEAD: Atraumatic. Normocephalic. EYES: Pupils equal round and reactive. Extraocular motions intact. No scleral icterus. ENT: Nose without bleeding, or drainage, Airway patent. NECK: Trachea midline. Supple CARDIOVASCULAR: Regular rate and rhythm without murmurs, gallops, or rubs. RESPIRATORY: Fair air entry bilaterally. No wheezes, rales, or rhonchi. GASTROINTESTINAL: Abdomen soft, non-tender, nondistended. Positive bowel sounds MUSCULOSKELETAL: Extremities without clubbing, cyanosis, or edema. Pedal pulses appreciated NEUROLOGICAL: Awake and alert. Moves all extremity. Normal speech.no focal neurological deficit A/P Assessment and Plan 65 years old male history of hypertension came with Left arm and shoulder numbness with aphasic symptoms most likely TIA Flat head of the bed, permissive hypertension keep at 160-170 systolic goal Neuro check, INH scale, carotid ultrasound, EEG, 2-D echo, MRI/MRA, FLP, A1c Aspirin was given in ED, will continue MRI: Only chronic ischemic changes, MRA: Unremarkable 2-D echo showed severely reduced EF 25-30% with diffuse hypokinesis Ultrasound of the carotid showed high grade right ICA stenosis, 50-69% left ICA stenosis IFEANYI>> mild disease on the right side indicated for small vessel disease CT angiogram of the abdominal aorta and lower extremity recommended LFP showed TG of 838 and HDL of 23>>stop Pravachol [facility] , Consulted neurology, recommended CTA of the aorta and lower extremity, patient possibly will need revascularization but could be as an outpatient, neurology consultation home suggesting TIA, possible underlying seizure, he ordered CT of the neck, and consulted cardiology for possible need for anticoagulation considering his low EF 25-30 % CTA of the neck confirmed right ICA occlusion, neurology recommended CEA JENS, vascular surgery was notified yesterday, appreciate cardiology consultation patient had stress testing today, started on carvedilol he was given 1 dose of ramipril stress test came back without confirmed reversible defect but dilated left ventricle and EF of 20%, neurology recommending CEA JENS, [facility] decided surgery on Hypertensive urgency blood pressure 230/110 at admission>> improved Patient was given labetalol 10 mg iv in ED, blood pressure improved to 160/80 Monitor blood pressure Reduced ejection fraction 25-30%, not decompensated Consulted cardiology H/O PVD with left femoral stenting, and recent worsening claudication IFEANYI as above, consulted [facility] History of COPD: O2 and DuoNeb as needed H/O heart catheter 5 years ago Considering his tobacco abuse risk will continue cycling cardiac enzyme EEG reviewed personally by me showing sinus rhythm with ectopy, LAD, LBBB Tobacco abuse Patient was counseled DVT prophylaxis with SCD and heparin Ruslan Lilly MD Aug 13, 2016 10:31 H/O heart catheter 5 years ago Considering his tobacco abuse risk will continue cycling cardiac enzyme EEG reviewed personally by me showing sinus rhythm with ectopy, LAD, LBBB Tobacco abuse Patient was counseled DVT prophylaxis with SCD and heparin Ruslan Lilly MD Aug 13, 2016 10:31
[2016-08-13 12:12] VITALS: BP 166/85; PULSE 73; RESP 18; TEMP 97; O2SAT 94
--- NOTE | 2016-08-13 12:32 | PD.VS.PN ---
Subjective Subjective/Hospital Course No new TIA symptoms. (Macey Puckett) Objective Vitals/I&O Date Time Temp Pulse Resp B/P Pulse Ox O2 Delivery O2 Flow Rate FiO2 08/13/16 12:12 97.0 73 18 166/85 94 08/13/16 10:14 55 08/13/16 08:35 96.7 70 18 140/81 96 08/12/16 20:26 70 08/12/16 20:00 97.2 71 18 151/81 94 08/12/16 16:17 98.5 70 18 133/67 93 08/12/16 13:01 97.7 68 18 155/83 93 Physical Exam GENERAL: GCS15, NAD, pleasant 65/M SKIN: Warm and dry. NECK: Supple, No JVD CARDIOVASCULAR: RRR, +S1,S2 RESPIRATORY: Breath sounds equal and clear bilaterally GASTROINTESTINAL: Abdomen soft, non-tender, nondistended. MUSCULOSKELETAL: No cyanosis, or edema. 5/5 throughout CN 2-12 intact (Macey Puckett) Laboratory Laboratory Tests Test 08/12/16 16:41 Sodium Level 140 Potassium Level 4.4 Chloride Level 104 Carbon Dioxide Level 28.9 Anion Gap 7 Blood Urea Nitrogen 21 Creatinine 1.07 Estimat Glomerular Filtration 69 Rate Random Glucose 103 Calcium Level 8.8 Imaging Last 48 hours Impressions Aorta w/Runoff CTA 08/12/16 0000 Signed Impressions: Service Date/Time: Friday, August 12, 2016 20:36 - CONCLUSION: 1. Diffuse atherosclerotic plaque with tandem right inflow stenoses. This is most pronounced within the external iliac as detailed above. Left inflow is patent. A left common iliac stent is somewhat limited in its evaluation due to beam hardening artifact. It is felt to be patent. 2. Right lower extremity shows diffuse severe SFA disease including short segment occlusions. Popliteal artery and trifurcation vessels are patent. 3. Left lower extremity shows moderate diffuse SFA disease with 70%% stenosis in the abductor canal. Popliteal artery and trifurcation vessels are patent. 4. Moderate stenosis of the right renal artery. 5. Hepatic steatosis. Carlos Laguna Jr., MD (Macey Puckett) Assessment and Plan Plan Pt without any new onset TIA symptoms Pt scheduled for a R CEA tomorrow Surgical procedure explained to patient Macey KITCHEN [facility] [phone] (Macey Puckett) Plan Patient with hx of symptomatic right ICA stenosis. Plan for right CEA on 08/14/2016. Patient consented..Agree with above. Sean Ferrell DO, FACS [employer] Project Manager of Vascular Surgery [facility] (Sean Ferrell DO) Macey Puckett Aug 13, 2016 12:32 Sean Ferrell DO Aug 13, 2016 15:27
[2016-08-13 15:58] VITALS: BP 154/87; PULSE 71; RESP 18; TEMP 96.8; O2SAT 100
[2016-08-13] MEDS ORDERED: POVIDONE IODINE 5% (ANTISEPSIS KIT) 4 APPLICATIONS EACH NARE PRN (19:30)
[2016-08-13] MEDS ORDERED: SODIUM CHLORID 0.9% 500 ML IV PRN (19:30)
[2016-08-13] MEDS ORDERED: LACTATED RINGER'S 1000 ML IV PRN (19:30)
[2016-08-13] MEDS ORDERED: CHLORHEXIDINE GLUCONATE 2 % 1 PACK (2 CLOTHS) TOPICAL PRN (19:30)
[2016-08-13 20:00] VITALS: BP 175/99; PULSE 72; RESP 20; TEMP 95.4; O2SAT 94
[2016-08-13] MEDS: ENALAPRILAT 1.25 MG/ML VIAL IV PUSH PRN (21:24)
[2016-08-14] VITALS (11 sets, daily range): BP systolic 15–155; BP diastolic 51–83; PULSE 59–78; RESP 16–20; TEMP 97.5–98.3; O2SAT 93–96
[2016-08-14] MEDS: INSULIN ASPART SUPPLEMENTAL SCALE SQ SCH (06:32)
[2016-08-14] MEDS ORDERED: DEXAMETHASONE SOD PHOS 4 MG/ML VIAL ONE (07:39)
[2016-08-14] MEDS ORDERED: FAMOTIDINE 20 MG/2 ML VIAL ONE (07:39)
[2016-08-14] MEDS ORDERED: SUGAMMADEX SODIUM 200 MG/2 ML VIAL IV PUSH ONE ×2 (07:39)
[2016-08-14] MEDS ORDERED: MIDAZOLAM HCL 2 MG/2 ML VIAL ONE (07:39)
[2016-08-14] MEDS ORDERED: GELFOAM SIZE 100 ONE (07:41)
[2016-08-14] MEDS ORDERED: HEPARIN SODIUM - IV 10,000 UNITS/10 ML VIAL ONE (07:41)
[2016-08-14] MEDS ORDERED: PROTAMINE SULFATE 50 MG/5 ML VIAL ONE (07:42)
[2016-08-14] MEDS ORDERED: THROMBIN (TOPICAL) 5,000 UNIT VIAL ONE (07:42)
[2016-08-14] MEDS ORDERED: HEPARIN SODIUM - SQ 10,000 UNITS/ML VIAL ONE (07:42)
[2016-08-14] MEDS: SODIUM CHLOR 0.9% 1000 ML INJ 1,000 ML IV SCH ×2 (08:20→11:00)
[2016-08-14] MEDS: PRAVASTATIN SOD 80 MG TAB PO SCH (09:00)
[2016-08-14] MEDS: CARVEDILOL 3.125 MG TAB PO SCH ×2 (09:00→21:12)
[2016-08-14] MEDS: ASPIRIN EC 325 MG TABEC PO SCH (09:00)
[2016-08-14] MEDS: amLODIPine BESYLATE 5 MG TAB PO SCH (09:00)
[2016-08-14] MEDS: SODIUM CHLORIDE 0.9% FLUSH 10 ML FLUSH IV FLUSH SCH ×2 (09:00→21:15)
[2016-08-14] MEDS ORDERED: BUPIVACAINE/EPINEPHRINE 0.5% PF 30 ML VIAL ONE (09:05)
[2016-08-14] MEDS ORDERED: LIDOCAINE HCL 1% 20 ML VIAL ONE (09:32)
[2016-08-14] MEDS ORDERED: DEXTROSE 50% IN WATER 50 ML VIAL(D50) IV PUSH PRN (11:00)
[2016-08-14] MEDS ORDERED: LABETALOL HCL 100 MG/20 ML VIAL IV PUSH PRN (11:00)
[2016-08-14] MEDS: HEPARIN SODIUM - SQ 10,000 UNITS/ML VIAL SQ SCH (11:00)
[2016-08-14] MEDS ORDERED: cloNIDine HCL 0.1 MG TAB PO PRN (11:00)
[2016-08-14] MEDS ORDERED: ONDANSETRON HCL 4 MG/2 ML VIAL IV PUSH PRN (11:00)
[2016-08-14] MEDS ORDERED: Post-op Orders (for Pharmacy) MISC OTHER ONE (11:00)
[2016-08-14] MEDS ORDERED: MAGNESIUM HYDROXIDE SUSP 30 ML CUP PO PRN (11:00)
[2016-08-14] MEDS ORDERED: GLUCAGON 1 MG/ML VIAL OTHER PRN (11:00)
[2016-08-14] MEDS ORDERED: ZOLPIDEM TARTRATE 5 MG TAB PO PRN (11:00)
[2016-08-14] MEDS ORDERED: MORPHINE SULFATE 4 MG/ML INJ IV PUSH PRN (11:00)
[2016-08-14] MEDS ORDERED: ACETAMINOPHEN 325 MG TAB PO PRN (11:00)
[2016-08-14] MEDS ORDERED: *morphine SULFATE 8 MG/ML PERIprocedure ONLY ONE ×3 (11:49→12:53)
[2016-08-14] MEDS ORDERED: ePHEDrine/NS 25 MG/5 ML SYR IV ONE (12:00)
[2016-08-14] MEDS: INSULIN NovoLIN REGULAR SUPPLEMENTAL SCALE SQ SCH ×2 (12:00→17:26)
[2016-08-14] MEDS ORDERED: LACTATED RINGER'S 1000 ML INJ 1,000 ML IV ONE (12:00)
[2016-08-14] MEDS ORDERED: NITROGLYCERIN 1000 MCG/5 ML VIAL IV ONE (12:00)
[2016-08-14] MEDS ORDERED: PROPOFOL 200 MG/20 ML AMP IV ONE (12:00)
[2016-08-14] MEDS ORDERED: fentaNYL CITRATE 250 MCG/5 ML AMP ONE (12:17)
[2016-08-14] MEDS ORDERED: niCARdipine 25 MG/NS 250 ML Vial2Bag or IV room IV SCH ×2 (13:15)
[2016-08-14] MEDS: oxyCODONE/ACETAMINOPHEN 5 MG/325 MG TAB PO PRN ×2 (13:49→18:57)
--- NOTE | 2016-08-14 14:27 | HHI.PR ---
Subjective Remarks patient seen after right CEA. patient has no complaints. left facial droop is new after surgery. patient stated tingling in arms has resolved. other than that no other focal neurological deficits. his nurse at the bedside. Objective Vitals Vital Signs Date Time Temp Pulse Resp B/P Pulse Ox O2 Delivery O2 Flow Rate FiO2 08/14/16 14:16 98.3 70 19 151/83 96 15/69 08/14/16 14:11 74 08/14/16 14:01 98.2 73 16 155/71 93 151/83 08/14/16 13:30 60 16 139/80 96 Nasal Cannula 2 158/65 08/14/16 13:00 61 16 143/79 96 Nasal Cannula 2 147/67 08/14/16 12:30 67 16 144/84 96 Nasal Cannula 2 168/66 08/14/16 12:15 66 16 155/91 97 Nasal Cannula 2 181/73 08/14/16 12:00 64 16 159/94 98 Nasal Cannula 2 180/81 08/14/16 11:45 66 16 160/99 98 Nasal Cannula 2 186/89 08/14/16 11:30 97.6 69 16 143/119 98 Nasal Cannula 2 08/14/16 04:00 97.5 59 20 144/74 96 08/14/16 00:00 97.7 69 20 135/74 95 08/13/16 21:49 16 08/13/16 20:00 95.4 72 20 175/99 94 08/13/16 15:58 96.8 71 18 154/87 100 I/O 08/13/16 08/13/16 08/13/16 08/14/16 08/14/16 08/14/16 07:00 15:00 23:00 07:00 15:00 23:00 Intake Total 240 ml 240 ml 0 ml 800 ml Output Total 250 ml Balance 240 ml 240 ml 0 ml 550 ml Intake Oral 240 ml 240 ml 0 ml Other 800 ml Output Estimated Blood Loss 50 ml Other 200 ml # Voids 3 1 1 # Bowel Movements 0 0 Result Diagram: 08/12/16 1641 Objective Remarks GENERAL: in NAD SKIN: right neck wound dry clean intact with boom in place. HEAD: Normocephalic. EYES: No scleral icterus. No injection or drainage. NECK: Supple, trachea midline. No JVD or lymphadenopathy. CARDIOVASCULAR: Regular rate and rhythm without murmurs, gallops, or rubs. RESPIRATORY: Breath sounds equal bilaterally. No accessory muscle use. GASTROINTESTINAL: Abdomen soft, non-tender, nondistended. Neuro: Left sided facial droop otherwise cranial nerve II-12 intact. 5 out of 5 lower extremity and upper extreme strength. Sensation is grossly intact. Medications and IVs Current Medications Sodium Chloride (NS Flush) 2 ml UNSCH PRN IVF FLUSH AFTER USING IV ACCESS Last administered on 08/07/16 08:30; Start 08/07/16 at 08:15; Stop 08/07/16 at 10:12 ; Status DC Labetalol HCl (Trandate Inj) 10 mg ONCE ONCE IV PUSH ; Start 08/07/16 at 08:30 ; Stop 08/07/16 at 08:53; Status DC Acetaminophen (Tylenol) 650 mg ONCE ONCE PO Last administered on 08/07/16 09: 37; Start 08/07/16 at 09:30; Stop 08/07/16 at 09:31; Status DC Aspirin (Aspirin) 325 mg ONCE ONCE PO Last administered on 08/07/16 09:51; Start 08/07/16 at 09:45; Stop 08/07/16 at 09:46; Status DC Sodium Chloride (NS Flush) 2 ml BID IV FLUSH Last administered on 08/13/16 20: 48; Start 08/07/16 at 21:00 Sodium Chloride (NS Flush) 2 ml UNSCH PRN IV FLUSH FLUSH AFTER USING IV ACCESS ; Start 08/07/16 at 10:15 Enalaprilat (Vasotec Inj) 1.25 mg Q4H PRN IV For SBP >/= 180 or DBP >/= 100; Start 08/07/16 at 10:15; Stop 08/08/16 at 12:42; Status DC Insulin Aspart (NovoLOG SUPPLEMENTAL SCALE) 1 ACHS SLIDING SCALE SQ ; Start at 11:00; Stop 08/14/16 at 11:07; Status DC Dextrose (D50w (Vial) Inj) 25 ml UNSCH PRN IV PUSH HYPOGLYCEMIA-SEE COMMENTS; Start 08/07/16 at 10:15; Stop 08/14/16 at 11:07; Status DC Glucagon (Glucagon Inj) 1 mg UNSCH PRN OTHER HYPOGLYCEMIA-SEE COMMENTS; Start 08/07/16 at 10:15; Stop 08/14/16 at 11:07; Status DC Heparin Sodium (Porcine) (Heparin Inj) 5,000 units Q8H SQ Last administered on 08/13/16 03:00; Start 08/07/16 at 11:00 Albuterol/ Ipratropium (Duoneb Neb) 1 ampule QID NEB NEB Last administered on 08/10/16 19:13; Start 08/07/16 at 16:00; Stop 08/11/16 at 16:00; Status DC Albuterol/ Ipratropium (Duoneb Neb) 1 ampule Q2HR NEB PRN NEB short of breath; Start 08/07/16 at 12:30 Acetaminophen/ Hydrocodone Bitart ([place] 5-325 Mg) 1 tab Q4H PRN PO pain >5 Last administered on 08/13/16 20:49; Start 08/08/16 at 00:15 Amlodipine Besylate (Norvasc) 5 mg DAILY PO Last administered on 08/13/16 09:17 ; Start 08/08/16 at 12:45 Enalaprilat (Vasotec Inj) 1.25 mg Q6H PRN IV PUSH bp>160/90 Last administered on 08/13/16 21:24; Start 08/08/16 at 12:45 Pravastatin Sodium (Pravachol) 80 mg DAILY PO Last administered on 08/13/16 09: 17; Start 08/08/16 at 21:00 Aspirin 325 mg 325 mg DAILY PO Last administered on 08/13/16 09:17; Start at 11:00; Stop 08/14/16 at 23:00 Sodium Chloride (NS 1000 ml Inj) 1,000 ml @ 75 mls/hr [id number] IV Last administered on 08/12/16 03:21; Start 08/10/16 at 11:00 Iohexol (Omnipaque 350 Inj) 85 ml STK-MED ONCE IV Last administered on 11:37; Start 08/10/16 at 11:37; Stop 08/10/16 at 11:38; Status DC Ramipril (Altace) 5 mg ONCE ONCE PO Last administered on 08/10/16 16:45; Start 08/10/16 at 16:45; Stop 08/10/16 at 16:46; Status DC Carvedilol (Coreg) 3.125 mg Q12HR PO Last administered on 08/13/16 21:23; Start 08/10/16 at 21:00 Regadenoson (Lexiscan Inj) 0.4 mg STK-MED ONCE .ROUTE Last administered on 11:15; Start 08/11/16 at 11:15; Stop 08/11/16 at 11:16; Status DC Iohexol 100 ml 100 ml STK-MED ONCE IV Last administered on 08/12/16 23:09; Start 08/12/16 at 23:09; Stop 08/12/16 at 23:10; Status DC Lactated Ringer's 1,000 ml @ 0 mls/hr Q0M PRN IV SEE LABEL COMMENTS Last administered on 08/14/16 06:33; Start 08/13/16 at 19:30; Stop 08/14/16 at 11:09; Status DC Sodium Chloride (NS 500 ml Inj) 500 ml @ 30 mls/hr [id number] PRN IV SEE LABEL COMMENTS; Start 08/13/16 at 19:30; Stop 08/14/16 at 11:09; Status DC Povidone Iodine (Betadine 5% Antisepsis Kit) 1 applic [employer] PRN EACH NARE SEE LABEL COMMENTS; Start 08/13/16 at 19:30; Stop 08/16/16 at 19:29 Chlorhexidine Gluconate (Chlorhexidine 2% Cloth) 3 pack [employer] PRN TOPICAL SEE LABEL COMMENTS Last administered on 08/14/16 06:33; Start 08/13/16 at 19:30; Stop 08/16/16 at 19:29 Midazolam HCl (Versed Inj) 2 mg STK-MED ONCE .ROUTE ; Start 08/14/16 at 07:39; Stop 08/14/16 at 07:40; Status DC Sugammadex Sodium (Bridion Inj) 200 mg STK-MED ONCE IV PUSH ; Start 08/14/16 at 07:39; Stop 08/14/16 at 07:40; Status DC Dexamethasone Sodium Phosphate (Decadron Inj) 4 mg STK-MED ONCE .ROUTE ; Start 08/14/16 at 07:39; Stop 08/14/16 at 07:40; Status DC Famotidine (Pepcid Inj) 20 mg STK-MED ONCE .ROUTE ; Start 08/14/16 at 07:39; Stop 08/14/16 at 07:40; Status DC Heparin Sodium (Porcine) (Heparin Inj) 10,000 units STK-MED ONCE .ROUTE Last administered on 08/14/16 08:30; Start 08/14/16 at 07:41; Stop 08/14/16 at 07:42; Status DC Gelatin (Gelfoam 100 Top) 1 foam STK-MED ONCE .ROUTE ; Start 08/14/16 at 07:41; Stop 08/14/16 at 07:42; Status DC Heparin Sodium (Porcine) (Heparin Inj) 10,000 units STK-MED ONCE .ROUTE Last administered on 08/14/16 09:36; Start 08/14/16 at 07:42; Stop 08/14/16 at 07:43; Status DC Protamine Sulfate (Protamine Sulfate Inj) 50 mg STK-MED ONCE .ROUTE ; Start 08/14 at 07:42; Stop 08/14/16 at 07:43; Status DC Thrombin (Thrombin Top Soln) 5,000 units STK-MED ONCE .ROUTE ; Start 08/14/16 at 07:42; Stop 08/14/16 at 07:43; Status DC Bupivacaine HCl/ Epinephrine Bitart (Sensorcaine-Epinephrine Pf 0.5% Inj) 30 ml STK-MED ONCE .ROUTE Last administered on 08/14/16 09:25; Start 08/14/16 at 09:05 ; Stop 08/14/16 at 09:06; Status DC Lidocaine HCl 20 ml 20 ml STK-MED ONCE .ROUTE Last administered on 08/14/16 09: 38; Start 08/14/16 at 09:32; Stop 08/14/16 at 09:33; Status DC Sodium Chloride (NS 1000 ml Inj) 1,000 ml @ 100 mls/hr Q10H IV Last administered on 08/14/16 11:00; Start 08/14/16 at 11:00; Stop 08/15/16 at 10:59 Aspirin (Ecotrin Ec) 325 mg DAILY PO ; Start 08/15/16 at 09:00 Ondansetron HCl (Zofran Inj) 4 mg Q6H PRN IV PUSH SEVERE NAUSEA AND/OR VOMITING ; Start 08/14/16 at 11:00 Pantoprazole Sodium (Protonix) 40 mg HS PO ; Start 08/14/16 at 21:00 Acetaminophen (Tylenol) 650 mg Q4H PRN PO TEMPERATURE > 101 F; Start 08/14/16 at 11:00 Magnesium Hydroxide (Milk Of Magnesia Liq) 30 ml DAILY PRN PO CONSTIPATION; Start 08/14/16 at 11:00 Zolpidem Tartrate (Ambien) 5 mg HS PRN PO INSOMNIA/MAY REPEAT X1 DOSE; Start at 11:00 Labetalol HCl (Trandate Inj) 2.5 mg Q15M PRN IV PUSH SYS BP GREATER THAN 150 MMHG; Start 08/14/16 at 11:00 Clonidine (Catapres) 0.1 mg Q30M PRN PO SYS BP GREATER THAN 160 MMHG; Start 08/14/16 at 11:00; Stop 08/14/16 at 13:31; Status DC Docusate Calcium (Surfak) 240 mg HS PO ; Start 08/14/16 at 21:00 Oxycodone/ Acetaminophen (Percocet 5-325 Mg) 1 tab Q4H PRN PO PAIN SCALE 1 TO 5 Last administered on 08/14/16t 13:49; Start 08/14/16 at 11:00 Morphine Sulfate 4 mg 4 mg Q4H PRN IV PUSH BREAKTHROUGH PAIN; Start 08/14/16 at 11:00 Cefazolin Sodium/ Dextrose (Ancef 2 Gm Premix) 50 ml @ 100 mls/hr Q8H IV ; Start 08/14/16 at 17:00; Stop 08/15/16 at 09:29 Miscellaneous Information (Post-op Orders (for Pharmacy)) STAT ONCE OTHER ; Start 08/14/16 at 11:00; Stop 08/14/16 at 13:12; Status DC Insulin Human Regular (NovoLIN R SUPPLEMENTAL SCALE) 1 Q6HR SQ ; Start 08/14/16 at 12:00 Dextrose (D50w (Vial) Inj) 25 ml UNSCH PRN IV PUSH HYPOGLYCEMIA-SEE COMMENTS; Start 08/14/16 at 11:00 Glucagon (Glucagon Inj) 1 mg UNSCH PRN OTHER HYPOGLYCEMIA-SEE COMMENTS; Start 08/14/16 at 11:00 Nicardipine HCl (Cardene Inj) 25 mg STK-MED ONCE .ROUTE Last administered on 11:45; Start 08/14/16 at 11:45; Stop 08/14/16 at 11:46; Status DC Morphine Sulfate (*morphine INJ PERIprocedure ONLY) 8 mg STK-MED ONCE .ROUTE Last administered on 08/14/16 11:49; Start 08/14/16 at 11:49; Stop 08/14/16 at 11: 50; Status DC Fentanyl Citrate (fentaNYL INJ) 250 mcg STK-MED ONCE .ROUTE ; Start 08/14/16 at 12:17; Stop 08/14/16 at 12:18; Status DC Morphine Sulfate (*morphine INJ PERIprocedure ONLY) 8 mg STK-MED ONCE .ROUTE ; Start 08/14/16 at 12:23; Stop 08/14/16 at 12:24; Status DC Morphine Sulfate 8 mg 8 mg STK-MED ONCE .ROUTE Last administered on 08/14/16 12 :53; Start 08/14/16 at 12:53; Stop 08/14/16 at 12:54; Status DC Nicardipine HCl/ Sodium Chloride (Cardene Inj/NS 250 ml Inj) 260 ml @ 0 mls/hr TITRATE IV ; Start 08/14/16 at 13:15 A/P Assessment and Plan 65 years old male history of hypertension came with Left arm and shoulder numbness with aphasic symptoms most likely TIA -Patient now has left facial droop after surgery otherwise asymptomatic and previous symptoms have resolved. -MRI: Only chronic ischemic changes, MRA: Unremarkable, 2-D echo showed severely reduced EF 25-30% with diffuse hypokinesis, oltrasound of the carotid showed high grade right ICA stenosis, 50-69% left ICA stenosis, IFEANYI>> mild disease on the right side indicated for small vessel disease CT angiogram of the abdominal aorta and lower extremity recommended -Neurologist following recommended CTA of the aorta and lower extremity, patient possibly will need revascularization but could be as an outpatient, -CTA of the neck confirmed right ICA occlusion, -Status post right CEA be managed by vascular surgeon. -Patient currently on aspirin, pravastatin, antihypertensive medication. -Continue her current regimen. Hypertensive urgency -Improving. -Patient currently on nicardipine drip. Cardiomyopathy with ejection fraction 25-30% -Hammer Driver following. Recommended carvedilol. -Stress test showed minimal redistribution with dilated ventricle. Tobacco abuse -Patient was counseled DVT prophylaxis with SCD and heparin Discharge Planning Patient just had right CEA today so needs continue monitoring and he is on the nicardipine drip. Asia Ward MD Aug 14, 2016 14:26 Asia Ward MD Aug 14, 2016 14:26 Reduced ejection fraction 25-30%, not decompensated Consulted cardiology H/O PVD with left femoral stenting, and recent worsening claudication IFEANYI as above, consulted [facility] History of COPD: O2 and DuoNeb as needed H/O heart catheter 5 years ago Considering his tobacco abuse risk will continue cycling cardiac enzyme EEG reviewed personally by me showing sinus rhythm with ectopy, LAD, LBBB Tobacco abuse Patient was counseled DVT prophylaxis with SCD and heparin Asia Ward MD Aug 14, 2016 14:26
--- NOTE | 2016-08-14 16:12 | PD.VS.PN ---
Subjective Subjective/Hospital Course No new TIA symptoms status post right CEA. Objective Vitals/I&O Date Time Temp Pulse Resp B/P Pulse Ox O2 Delivery O2 Flow Rate FiO2 08/14/16 15:27 98.1 74 19 135/83 96 129/53 08/14/16 15:00 69 08/14/16 14:16 98.3 70 19 151/83 96 15/69 08/14/16 14:11 74 08/14/16 14:01 98.2 73 16 155/71 93 151/83 08/14/16 13:30 60 16 139/80 96 Nasal Cannula 2 158/65 08/14/16 13:00 61 16 143/79 96 Nasal Cannula 2 147/67 08/14/16 12:30 67 16 144/84 96 Nasal Cannula 2 168/66 08/14/16 12:15 66 16 155/91 97 Nasal Cannula 2 181/73 08/14/16 12:00 64 16 159/94 98 Nasal Cannula 2 180/81 08/14/16 11:45 66 16 160/99 98 Nasal Cannula 2 186/89 08/14/16 11:30 97.6 69 16 143/119 98 Nasal Cannula 2 08/14/16 04:00 97.5 59 20 144/74 96 08/14/16 00:00 97.7 69 20 135/74 95 08/13/16 21:49 16 08/13/16 20:00 95.4 72 20 175/99 94 08/14/16 08/14/16 08/14/16 07:00 15:00 23:00 Intake Total 0 ml 800 ml Output Total 250 ml Balance 0 ml 550 ml Physical Exam Gross Motor intact upper and lower extremity Right neck incision clean. Right marginal mandibular palsy. Assessment and Plan Plan Status post right CEA Neurologically intact. Marginal mandibular nerve palsy should resolve over time. Can have diet advance in am with removal of garcia and arterial line. Cardene drip ordered for hypertension. Sean Ferrell DO, FACS Academic Specialist of Vascular Surgery FRANK/Sean Carroll DO Aug 14, 2016 16:12
[2016-08-14] MEDS: ceFAZolin 2 GM PREMIX 50 ML IV SCH (17:00)
[2016-08-14] MEDS ORDERED: DOCUSATE CALCIUM 240 MG CAP PO SCH (21:00)
[2016-08-14] MEDS ORDERED: PANTOPRAZOLE SOD 40 MG DELAYED RELEASE TAB PO SCH (21:00)
[2016-08-15] VITALS: BP_SYST 125; BP_SYST 146; BP_DIAS 72; BP_DIAS 73; PULSE 73; RESP 18; TEMP 98.5; O2SAT 94
[2016-08-15] MEDS: ceFAZolin 2 GM PREMIX 50 ML IV SCH ×2 (00:15→09:08)
[2016-08-15] MEDS: oxyCODONE/ACETAMINOPHEN 5 MG/325 MG TAB PO PRN ×3 (00:26→11:12)
[2016-08-15 04:00] VITALS: BP_SYST 128; BP_SYST 137; BP_DIAS 56; BP_DIAS 72; PULSE 75; PULSE 78; RESP 18; TEMP 98.1; O2SAT 95
[2016-08-15] MEDS: SODIUM CHLOR 0.9% 1000 ML INJ 1,000 ML IV SCH ×2 (04:11→07:00)
[2016-08-15 05:45] LABS: ALT (GPT) 50 U/L (12-78); ANION GAP 6 MEQ/L (5-15); AST (GOT) 19 U/L (15-37); BICARBONATE 26.6 MEQ/L (21.0-32.0); BLOOD UREA NITROGEN 21 MG/DL (7-18); CHLORIDE 107 MEQ/L (98-107); GLOMERULAR FILTRATION RATE 73 ML/MIN (>89); POTASSIUM 4.1 MEQ/L (3.5-5.1); SODIUM (NA) 140 MEQ/L (136-145)
[2016-08-15 05:48] LABS: ALKALINE PHOSPHATASE 46 U/L (45-117); TOTAL BILIRUBIN ADULT 0.7 MG/DL (0.2-1.0)
[2016-08-15] MEDS: INSULIN NovoLIN REGULAR SUPPLEMENTAL SCALE SQ SCH ×3 (06:00→11:22)
[2016-08-15 07:15] VITALS: BP 141/54; PULSE 62; RESP 17; TEMP 98.5; O2SAT 94
[2016-08-15] MEDS: SODIUM CHLORIDE 0.9% FLUSH 10 ML FLUSH IV FLUSH SCH (09:00)
[2016-08-15] MEDS ORDERED: LISINOPRIL 20 MG TAB PO SCH (09:00)
[2016-08-15] MEDS ORDERED: ASPIRIN EC 325 MG TABEC PO SCH (09:00)
--- NOTE | 2016-08-15 09:02 | PD.VS.PN ---
Subjective POD #: 1 Procedure(s): R CEA Subjective/Hospital Course No new TIA symptoms status post right CEA. CN XII intact without deficits Pt sitting in bed alert without complaints Objective Vitals/I&O Date Time Temp Pulse Resp B/P Pulse Ox O2 Delivery O2 Flow Rate FiO2 08/15/16 07:15 98.5 62 17 141/54 94 08/15/16 05:45 18 08/15/16 04:00 98.1 78 18 137/72 95 128/56 08/15/16 04:00 75 08/15/16 00:00 98.5 73 18 125/72 94 146/73 08/15/16 00:00 73 08/14/16 21:08 95 Nasal Cannula 2.00 08/14/16 20:00 69 08/14/16 20:00 98.1 73 20 130/74 94 143/66 08/14/16 19:00 78 95 92/51 08/14/16 15:27 98.1 74 19 135/83 96 129/53 08/14/16 15:00 69 08/14/16 14:16 98.3 70 19 151/83 96 15/69 08/14/16 14:11 74 08/14/16 14:01 98.2 73 16 155/71 93 151/83 08/14/16 13:30 60 16 139/80 96 Nasal Cannula 2 158/65 08/14/16 13:00 95 Nasal Cannula 2.00 08/14/16 13:00 61 16 143/79 96 Nasal Cannula 2 147/67 08/14/16 12:30 67 16 144/84 96 Nasal Cannula 2 168/66 08/14/16 12:15 66 16 155/91 97 Nasal Cannula 2 181/73 08/14/16 12:00 64 16 159/94 98 Nasal Cannula 2 180/81 08/14/16 11:45 66 16 160/99 98 Nasal Cannula 2 186/89 08/14/16 11:30 97.6 69 16 143/119 98 Nasal Cannula 2 08/15/16 08/15/16 08/15/16 07:00 15:00 23:00 Intake Total 2579 ml Output Total 156 ml Balance 2423 ml Exam: GENERAL: A&OX3, GCS15, nad SKIN: Warm and dry. NECK: Supple, No JVD CARDIOVASCULAR: RRR,+ S1,S2 RESPIRATORY: Breath sounds equal and clear bilaterally. No accessory muscle use. GASTROINTESTINAL: Abdomen soft, non-tender, nondistended. Pulses: Radial pulses strong and palpable Incisions: Right side of neck incision intact without swelling or drainage Laboratory Laboratory Tests Test 08/15/16 05:00 Sodium Level 140 Potassium Level 4.1 Chloride Level 107 Carbon Dioxide Level 26.6 Anion Gap 6 Blood Urea Nitrogen 21 Creatinine 1.02 Estimat Glomerular Filtration 73 Rate Random Glucose 120 Calcium Level 8.3 Total Bilirubin 0.7 Aspartate Amino Transf 19 (AST/SGOT) Alanine Aminotransferase 50 (ALT/SGPT) Alkaline Phosphatase 46 Total Protein 6.5 Albumin 3.3 Assessment and Plan Assessment: (1) Right-sided carotid artery disease Status: Acute Plan Status post right CEA Neurologically intact. Marginal mandibular nerve palsy should resolve over time. Removal of garcia and arterial line this am Transfer to [facility] [phone] Discharge Planning Pt Ok to D/C from a vascular standpoint Will follow up with pt in 1M for follow up Macey Puckett Aug 15, 2016 09:02
[2016-08-15] MEDS: PRAVASTATIN SOD 80 MG TAB PO SCH (09:06)
[2016-08-15] MEDS: CARVEDILOL 3.125 MG TAB PO SCH (09:07)
--- NOTE | 2016-08-15 09:10 | HHI.PR ---
Subjective Remarks SR Objective Vital Signs Date Time Temp Pulse Resp B/P Pulse Ox O2 Delivery O2 Flow Rate FiO2 08/15/16 07:15 98.5 62 17 141/54 94 08/15/16 05:45 18 08/15/16 04:00 98.1 78 18 137/72 95 128/56 08/15/16 04:00 75 08/15/16 00:00 98.5 73 18 125/72 94 146/73 08/15/16 00:00 73 08/14/16 21:08 95 Nasal Cannula 2.00 08/14/16 20:00 69 08/14/16 20:00 98.1 73 20 130/74 94 143/66 08/14/16 19:00 78 95 92/51 08/14/16 15:27 98.1 74 19 135/83 96 129/53 08/14/16 15:00 69 08/14/16 14:16 98.3 70 19 151/83 96 15/69 08/14/16 14:11 74 08/14/16 14:01 98.2 73 16 155/71 93 151/83 08/14/16 13:30 60 16 139/80 96 Nasal Cannula 2 158/65 08/14/16 13:00 95 Nasal Cannula 2.00 08/14/16 13:00 61 16 143/79 96 Nasal Cannula 2 147/67 08/14/16 12:30 67 16 144/84 96 Nasal Cannula 2 168/66 08/14/16 12:15 66 16 155/91 97 Nasal Cannula 2 181/73 08/14/16 12:00 64 16 159/94 98 Nasal Cannula 2 180/81 08/14/16 11:45 66 16 160/99 98 Nasal Cannula 2 186/89 08/14/16 11:30 97.6 69 16 143/119 98 Nasal Cannula 2 I/O 08/14/16 08/14/16 08/14/16 08/15/16 08/15/16 08/15/16 07:00 15:00 23:00 07:00 15:00 23:00 Intake Total 0 ml 800 ml 1580 ml 2579 ml Output Total 250 ml 380 ml 156 ml Balance 0 ml 550 ml 1200 ml 2423 ml Intake Oral 0 ml 400 ml 600 ml IV Total 1180 ml 1979 ml Other 800 ml Output Urine Total 380 ml 156 ml Estimated Blood Loss 50 ml Other 200 ml # Voids 1 # Bowel Movements 0 0 0 Result Diagram: 08/15/16 0500 Objective Remarks awake nl speech 5/5 t/o nl speech post op doing well vff face and tongue nl 5/ left Assessment and Plan Assessment and Plan imp r ica 80-90% sp cea low ef cards on case sr so far holter neg eeg nl on statin stable neuro will do cardionet o/p i will sign off fu my office Rafa Palencia MD Aug 15, 2016 09:10
[2016-08-15 11:04] VITALS: BP 126/75; PULSE 80; RESP 16; TEMP 98.4; O2SAT 96
[2016-08-15] MEDS: HEPARIN SODIUM - SQ 10,000 UNITS/ML VIAL SQ SCH (12:00)
[2016-08-15 12:12] VITALS: RESP 16
[2016-08-15] MEDS ORDERED: LISI-515 PO (13:22)
[2016-08-15] MEDS ORDERED: Aspirin Ec PO (13:22)
[2016-08-15] MEDS ORDERED: HYDR-3516 PO (13:22)
[2016-08-15] MEDS ORDERED: AMLO10 PO (13:22)
[2016-08-15] MEDS ORDERED: PANT40TA3 PO (13:22)
[2016-08-15] MEDS ORDERED: CARV3.125 PO (13:22)
[2016-08-15] MEDS ORDERED: PRAV80TA PO (13:22)
--- NOTE | 2016-08-15 13:26 | HHI.DCPOC ---
Discharge Care Plan Diagnosis: (1) Narrow complex tachycardia (2) Cardiomyopathy (3) TIA (transient ischemic attack) (4) Carotid stenosis, right Goals to Promote Your Health * To prevent worsening of your condition and complications * To maintain your health at the optimal level Directions to Meet Your Goals Take your medications as prescribed Follow your dietary instruction Follow activity as directed Keep your appointments as scheduled Take your immunizations and boosters as scheduled If your symptoms worsen call your PCP, if no PCP go to Urgent Care Center or Emergency Room Smoking is Dangerous to Your Health. Avoid second hand smoke Call the 24-hour hour crisis hotline for domestic abuse at Asia Ward MD Aug 15, 2016 13:26
--- NOTE | 2016-08-15 13:27 | HHI.DS ---
Discharge Summary Admission Date Aug 12, 2016 at 09:38 Discharge Date: Aug 15, 2016 Admitting Diagnosis TIA (1) TIA (transient ischemic attack) ICD Code: G45.9 Diagnosis: Principal (2) Cardiomyopathy ICD Code: I42.9 Diagnosis: Secondary (3) Carotid stenosis, right ICD Code: I65.21 Diagnosis: Principal (4) Narrow complex tachycardia ICD Code: I47.1 Diagnosis: Principal Procedures See hospital course. Brief History - From Admission 65 years old male with history of hypertension, PVD left femoral stenting, history of heart catheter in the past was negative, history of bladder cancer status post 2 time cystoscopy and cancer removal, patient not sure if he had other type of treatment. Presented to the ED with a new complain of left arm and shoulder numbness and tingling started after he woke up this morning at 4:00 , he stated the symptoms last for a few minutes and I complied by complete weakness and not able to speak "aphasia". No fever or chills dizziness or lightheadedness no chest pain or short of breath no abdominal pain diarrhea or constipation. No recent flulike syndrome. Patient stated he smoked electric cigarettes and before that he used to smoke 2 pack a day for 40 years or more. In ED was given aspirin CT of the head didn' t show hemorrhage CBC/BMP: 08/15/16 0500 Significant Findings Laboratory Tests Test 08/12/16 08/15/16 16:41 05:00 Blood Urea Nitrogen 21 MG/DL (7-18) 21 MG/DL (7-18) Estimat Glomerular Filtration 69 ML/MIN (>89) 73 ML/MIN (>89) Rate Random Glucose 120 MG/DL (74-106) Calcium Level 8.3 MG/DL (8.5-10.1) Albumin 3.3 GM/DL (3.4-5.0) Imaging Last Impressions Aorta w/Runoff CTA 08/12/16 0000 Signed Impressions: Service Date/Time: Friday, August 12, 2016 20:36 - CONCLUSION: 1. Diffuse atherosclerotic plaque with tandem right inflow stenoses. This is most pronounced within the external iliac as detailed above. Left inflow is patent. A left common iliac stent is somewhat limited in its evaluation due to beam hardening artifact. It is felt to be patent. 2. Right lower extremity shows diffuse severe SFA disease including short segment occlusions. Popliteal artery and trifurcation vessels are patent. 3. Left lower extremity shows moderate diffuse SFA disease with 70%% stenosis in the abductor canal. Popliteal artery and trifurcation vessels are patent. 4. Moderate stenosis of the right renal artery. 5. Hepatic steatosis. Carlos Laguna Jr., MD Myocardial Perfusion Scan Nuc Med 08/11/16 0000 Signed Impressions: Service Date/Time: Thursday, August 11, 2016 11:05 - CONCLUSION: Minimal redistribution as described above. Ventricular cavity is dilated the ejection fraction of 20%%. RISK CATEGORY: Low (<1%% Annual Mortality Rate) Amaury Cool MD FACR Neck CTA 08/10/16 1039 Signed Impressions: Service Date/Time: Wednesday, August 10, 2016 11:18 - CONCLUSION: Hemodynamically significant right internal carotid stenosis with extensive soft plaque. Amaury Cool MD FACR Head CTA 08/10/16 0000 Signed Impressions: Service Date/Time: Wednesday, August 10, 2016 11:18 - CONCLUSION: Negative for occlusion. Amaury Cool MD FACR Head CT 08/07/16 0812 Signed Impressions: Service Date/Time: July 08:56 - CONCLUSION: No acute intracranial findings. Moris Lam MD Chest X-Ray 08/07/16811 Signed Impressions: Service Date/Time: July 08:18 - CONCLUSION: 1. No acute cardiopulmonary disease. Rafa Santiago MD Head Magnetic Resonance Angiography 08/07/16 0000 Signed Impressions: Service Date/Time: July 15:20 - CONCLUSION: 1. Unremarkable MR angiography of the brain. Rafa Santiago MD Carotid Artery Ultrasound 08/07/16 0000 Signed Impressions: Service Date/Time: July 10:11 - CONCLUSION: 1. Diffuse severe calcified plaque involving both carotid arteries. High grade stenosis suspected involving the right ICA with 50-69%% stenosis involving the left ICA. Consider CTA of the carotid arteries to further evaluate. 2. Antegrade flow involving both vertebral arteries. Carlos Laguna Jr., MD Brain MRI 08/07/16 0000 Signed Impressions: Service Date/Time: July 15:20 - CONCLUSION: 1. No evidence of acute intracranial pathology. Chronic ischemic changes as above. Rafa Santiago MD PE at Discharge GENERAL: in NAD SKIN: right neck wound dry clean intact with boom in place. HEAD: Normocephalic. EYES: No scleral icterus. No injection or drainage. NECK: Supple, trachea midline. No JVD or lymphadenopathy. CARDIOVASCULAR: Regular rate and rhythm without murmurs, gallops, or rubs. RESPIRATORY: Breath sounds equal bilaterally. No accessory muscle use. GASTROINTESTINAL: Abdomen soft, non-tender, nondistended. Neuro: Left sided facial droop otherwise cranial nerve II-12 intact. 5 out of 5 lower extremity and upper extreme strength. Sensation is grossly intact. Pt update on day of discharge Follow-up for TIA with severe right carotid stenosis status post CEA Patient has no complaints. He stated that the left facial droop resolved. Denies any focal neurological deficits. Denies any visual changes or headache. Patient is off all drips. Patient's nurse is at the bedside. Patient's nurse called in regards to cardiac clearance and per Dr. Najera patient is clear from a cardiology standpoint. I sitting next the patient while she made a phone call. Hospital Course 65 years old male history of hypertension came with Left arm and shoulder numbness with aphasic symptoms most likely TIA -Symptoms resolved quickly and stroke workup was implemented. -Patient had an MRI of the brain which showed Only chronic ischemic changes, MRA: Unremarkable, 2-D echo showed severely reduced EF 25-30% with diffuse hypokinesis, ultrasound of the carotid showed high grade right ICA stenosis, 50- 69% left ICA stenosis, IFEANYI>> mild disease on the right side indicated for small vessel disease CT angiogram of the abdominal aorta and lower extremity recommended -Neurologist following recommended CTA of the aorta and lower extremity, patient possibly will need revascularization but could be as an outpatient, -CTA of the neck confirmed right ICA occlusion, -Status post right CEA be managed by vascular surgeon on 08/14/16 -After surgery. Patient had a left facial droop that resolved quickly.. -Patient currently on aspirin, pravastatin, antihypertensive medication. -Patient cleared by neurologist who recommended a CardioNet as outpatient and by vascular surgeon who recommended follow-up in one month. Hypertensive urgency -Patient was on carvedilol and was later put on nicardipine pain drip. Lisinopril added in amlodipine started in which nicardipine drip was weaned off. Cardiomyopathy with ejection fraction 25-30% -Buying Intern was consulted in which they recommend carvedilol. The also recommended nuclear stress test which showed showed minimal redistribution with dilated ventricle. -Patient was cleared by hub bander over the phone. Tobacco abuse -Patient was counseled Pt Condition on Discharge: Good Discharge Disposition: Discharge Home Discharge Time: > 30 minutes Discharge Instructions DIET: Follow Instructions for: Heart Healthy Diet Speech Therapy-Diet Recommends: Regular Activities you can perform: Regular-No Restrictions Follow up Referrals: Cardiology - 1 Week with Shilpa Najera MD Neurology - 2 Weeks with Rafa Palencia MD PCP Follow-up - [address] Italo Mo Vascular Surgery - [address] Italo Mo New Medications: Amlodipine (Norvasc) 10 Mg Tab 10 MG PO DAILY hypertension #30 Ref 0 TAB Carvedilol (Coreg) 3.125 Mg Tab 3.125 MG PO Q12HR hypertension #60 Ref 0 TAB Hydrocodone-Acetaminophen (Hydrocodone-Acetaminophen) 5-325 mg Tab 1 TAB PO Q4H PRN pain >5 #20 Ref 0 TAB Lisinopril (Lisinopril) 20 Mg Tab 20 MG PO DAILY hypertension #30 Ref 0 TAB Pantoprazole (Pantoprazole) 40 Mg Tab 40 MG PO HS acid reflux #30 Ref 0 TAB Pravastatin (Pravachol) 80 Mg Tab 80 MG PO DAILY high cholesterol #30 Ref 0 TAB ([Aspirin Ec]) 325 MG TABEC 325 MG PO DAILY TIA #30 Ref 0 TAB.EC Discontinued Medications: Amlodipine (Norvasc) 10 Mg Tab 10 MG PO DAILY Blood Pressure Management #30 Ref 0 TAB Lisinopril (Lisinopril) 20 Mg Tab 20 MG PO DAILY #30 Ref 0 TAB Asia Ward MD Aug 15, 2016 13:26
--- NOTE | 2016-08-16 15:55 | MP ---
cc: TONY FERRELL DATE OF SURGERY: 08/14/2016 PREOPERATIVE DIAGNOSIS History of symptomatic TIAs with a right high-grade carotid artery stenosis. POSTOPERATIVE DIAGNOSIS History of symptomatic TIAs with a right high-grade carotid artery stenosis. PROCEDURE Right carotid endarterectomy with neuromonitoring. SURGEON Dr. Ferrell KITCHEN MANAGER Candida Story. IV FLUIDS 800 cc of crystalloid. ESTIMATED BLOOD LOSS Minimal. URINE OUTPUT 200 cc. PROCEDURE The patient's right neck was prepped and draped in sterile fashion after being given perioperative IV antibiotics. I made an incision along the anterior border of the sternocleidomastoid, it was approximately 3-4 cm in length, it extended from the angle of the mandible towards the sternal notch, I used a scalpel and electrocautery. I dissected down through subcutaneous tissue and through platysma. I tied off any side branches of the internal jugular vein as I retracted the sternocleidomastoid posteriorly. I used 2-0 and 3-0 silks as well as small and medium clips as needed for the internal jugular vein. I removed any periadventitial tissue off the common internal and external carotid arteries and isolated the superior thyroid artery with a 2-0 silk vessel loop. I did use 0.5 cc of lidocaine in order to stabilize the carotid baroreceptor. I placed vessel loops around the internal and external carotid arteries and then used a Mauricio tourniquet around the common carotid artery. I used an 11-blade to perform my arteriotomy after heparinizing the patient to an ACT of greater than 250. I then used a Flores scissors to cut proximally and distally from the common to the internal carotid artery. It should be noted that I had control over the external with a vessel loop and I used a pediatric profunda clamp for the internal and a regular profunda clamp for the common carotid artery to control it. I used an elevator to remove the plaque off the back wall of the internal carotid artery. I irrigated the common and internal carotid arteries copiously with heparinized saline and removed any free debris. I did use two 6-0 Prolene tacking sutures distally on the medial aspect of the internal carotid artery as there was a small area that appeared to be somewhat free and be at risk for dissection. The rest of the posterior wall of the carotid looked intact. I then sewed a plain 8 x 8 bovine patch with two 5-0 Prolene stitches and used one 6-0 Prolene stitch at the end for correction. It should be noted that I did backbleed the common then reclamped it and then forward bled the common and back bled the external before releasing the internal carotid artery and the I used Surgicel over the patch. Then I closed in layers of 2-0 Vicryl absorbable sutures, 3-0 Vicryl absorbable sutures and then a 4-0 Monocryl with Dermabond over the skin. The patient had no changes in EEG during the procedure and before or after clamping the internal and all the way until the end of the case. The patient will be extubated and to make sure neurologically intact before leaving the operating room. DO MARCELLA Frank/RONN /10:57 AM /3:08 PM
== END 2016-08-15 14:30 | disposition home or self-care (01) | DRG 38 ==
LOC: NEPC 07:54 → NEDA 10:03 → N05A 16:02 → OBSVTOIN 08-12 09:38 → HCIS 08-14 09:51 → HCVR 08-14 13:25
PROVIDERS: ADMIT Hospitalist; ATTEND Family Medicine
PROC: 4A10X4G Monitoring of Central Nervous Electrical Activity, Intraoperative, External Approach (ICD-10-PCS; 2016-08-14)
PROC: 03CK0ZZ Extirpation of Matter from Right Internal Carotid Artery, Open Approach (ICD-10-PCS; principal; 2016-08-14 08:21)
DX: I65.21 Occlusion and stenosis of right carotid artery (principal); I42.9 Cardiomyopathy, unspecified; I50.9 Heart failure, unspecified; I11.0 Hypertensive heart disease with heart failure; J44.9 Chronic obstructive pulmonary disease, unspecified; I73.9 Peripheral vascular disease, unspecified; I16.0 Hypertensive urgency; R29.810 Facial weakness; I44.7 Left bundle-branch block, unspecified; I70.1 Atherosclerosis of renal artery; I70.8 Atherosclerosis of other arteries; R00.0 Tachycardia, unspecified; K21.9 Gastro-esophageal reflux disease without esophagitis; E78.00 Pure hypercholesterolemia, unspecified; E78.5 Hyperlipidemia, unspecified; H91.92 Unspecified hearing loss, left ear; R47.01 Aphasia; Z85.51 Personal history of malignant neoplasm of bladder; Z86.19 Personal history of other infectious and parasitic diseases; Z87.891 Personal history of nicotine dependence
CPT/HCPCS: 70450; 70496; 70498; 70544; 70551; 71010; 75635; 78452; 80048; 80053; 80061; 81001; 82550; 82552; 82607; 82746; 82948; 83036; 83921; 84165; 84425; 84439; 84443; 84450; 84460; 84484; 85025; 85610; 85652; 85730; 86038; 86140; 86592; 87086; 93005; 93017; 93225; 93226; 93306; 93880; 93922; 94150; 94640; 94664; 95819; A9502; C1768; G0378; G8987-GO; G8987-GP; G8988-GO; G8988-GP; G8989-GO; G8996-GN; G8997-GN; G8998-GN; J0690; J1100; J1644; J2250; J2270; J2720; J2785; J3010; J7030; J7050; J7120; Q9967

== ENCOUNTER 2017-09-15 08:06 | Day surgery (SDC) | payer OTHER ==
[~2017-09-15] VITALS: Ht 170.2 cm; Wt 85.2 kg
[~2017-09-15 08:06] MED LIST changes: +AMLO10 PO; -ASPI81TA64 PO; -ATOR20TA42 PO; +Aspirin Ec PO; +CARV3.125 PO; +HYDR-3516 PO; +LISI-515 PO; -LISI20 PO; -NORV10TA PO; +PANT40TA3 PO; -PERC7.5T3 PO; +PRAV80TA PO; -PROT40TA PO
[2017-09-15] MEDS ORDERED: IOHEXOL 350 MG/ML 100 ML BTL (for Cath Lab) OTHER ONE (08:07)
[2017-09-15 09:02] VITALS: BP 157/87; PULSE 76; RESP 18; O2SAT 99
[2017-09-15] MEDS ORDERED: SODIUM CHLORIDE 0.9% FLUSH 10 ML FLUSH IV FLUSH PRN ×2 (09:15)
[2017-09-15] MEDS ORDERED: SODIUM BICARBONATE 100 MEQ in D5W 1000 ML IV SCH (09:15)
[2017-09-15 09:56] LABS: CREATININE 1.02 MG/DL (0.60-1.30)
--- NOTE | 2017-09-15 10:00 | HHI.HP ---
History of Present Illness Chief Complaint: R LE claudication History of Present Illness 66 yo male with R LE claudication, lifestyle limiting as patient walks a lot. No rest pain and no tissue loss. H/O L LE stents by his report. No L LE symptoms Past/Family/Social History Past Medical History HTN PAD CVOD COPD Past Surgical History L LE stents Social History former smoker Family History NC Home Medications Active Scripts Pantoprazole (Pantoprazole) 40 Mg Tab, 40 MG PO HS for acid reflux, #30 TAB 0 Refills Prov:Asia Ward MD 08/15/16 Lisinopril (Lisinopril) 20 Mg Tab, 20 MG PO DAILY for hypertension, #30 TAB 0 Refills Prov:Asia Ward MD 08/15/16 Hydrocodone-Acetaminophen (Hydrocodone-Acetaminophen) 5-325 mg Tab, 1 TAB PO Q4H Y for pain >5, #20 TAB 0 Refills Prov:Asia Ward MD 08/15/16 [Aspirin] 325 MG TABEC No Conflict Check, 325 MG PO DAILY for TIA, #30 TAB.EC 0 Refills Prov:Asia Ward MD 08/15/16 Amlodipine (Norvasc) 10 Mg Tab, 10 MG PO DAILY for hypertension, #30 TAB 0 Refills Prov:Asia Ward MD 08/15/16 Discontinued Scripts Pravastatin (Pravachol) 80 Mg Tab, 80 MG PO DAILY for high cholesterol, #30 TAB 0 Refills Prov:Asia Ward MD 08/15/16 Carvedilol (Coreg) 3.125 Mg Tab, 3.125 MG PO Q12HR for hypertension, #60 TAB 0 Refills Prov:Asia Ward MD 08/15/16 Coded Allergies: No Known Allergies (Verified , 08/07/16) Review of Systems Constitutional: DENIES: Diaphoretic episodes, Fatigue, Fever, Weight gain, Weight loss, Chills, Dizziness, Change in appetite, Night Sweats Cardiovascular: COMPLAINS OF: Claudication Physical Exam Vitals/I&O Date Time Temp Pulse Resp B/P (MAP) Pulse Ox O2 Delivery O2 Flow Rate FiO2 09/15/17 09:02 76 18 157/87 (110) 99 Neuro: alert, oriented, no distress, mildly anxious HEENT: NC/AT Neck: no JVD Heart: reg rate Lungs: clear Vascular: no palpable R femoral pulses Extremities: no C/C/E Laboratory Tests Test 09/15/17 08:55 Caprini VTE Risk Assessment Caprini VTE Risk Assessment: No/Low Risk (score <= 1) Caprini Risk Assessment Model Point Value = 1 Point Value = 2 Point Value = 3 Point Value = 5 Age 41-60 Minor surgery BMI > 25 kg/m2 Swollen legs Varicose veins or History of unexplained or recurrent spontaneous Oral contraceptives or hormone replacement Sepsis (< 1 month) Serious lung disease, including pneumonia (< 1 month) Abnormal pulmonary function Acute myocardial infarction Congestive heart failure (< 1 month) History of inflammatory bowel disease Medical patient at bed rest Age 61-74 Arthroscopic surgery Major open surgery (> 45 min) Laparoscopic surgery (> 45 min) Malignancy Confined to bed (> 72 hours) Immobilizing plaster cast Central venous access Age >= 75 History of VTE Family history of VTE Factor V Leiden Prothrombin [id number] Lupus anticoagulant Anticardiolipin antibodies Elevated serum homocysteine Heparin-induced thrombocytopenia Other congenital or acquired thrombophilia Stroke (< 1 month) Elective arthroplasty Hip, pelvis, or leg fracture Acute spinal cord injury (< 1 month) Prophylaxis Regimen Total Risk Factor Score Risk Level Prophylaxis Regimen 0-1 Low Early ambulation 2 Moderate Order ONE of the following: *Sequential Compression Device (SCD) *Heparin 5000 units SQ BID 3-4 Higher Order ONE of the following medications: *Heparin 5000 units SQ TID *Enoxaparin/Lovenox 40 mg SQ daily (WT < 150 kg, CrCl > 30 mL/min) *Enoxaparin/Lovenox 30 mg SQ daily (WT < 150 kg, CrCl > 10-29 mL/min) *Enoxaparin/Lovenox 30 mg SQ BID (WT < 150 kg, CrCl > 30 mL/min) AND/OR *Sequential Compression Device (SCD) 5 or more Highest Order ONE of the following medications: *Heparin 5000 units SQ TID (Preferred with Epidurals) *Enoxaparin/Lovenox 40 mg SQ daily (WT < 150 kg, CrCl > 30 mL/min) *Enoxaparin/Lovenox 30 mg SQ daily (WT < 150 kg, CrCl > 10-29 mL/min) *Enoxaparin/Lovenox 30 mg SQ BID (WT < 150 kg, CrCl > 30 mL/min) AND *Sequential Compression Device (SCD) Assessment and Plan Plan R LE angiogram and potential endovascular intervention Discharge Planning later today Clifton Young MD September 15, 2017 10:00
[2017-09-15] MEDS ORDERED: HEPARIN-NS/PF FLUSH BAG 1,000 ML IV FLUSH ONE (10:23)
[2017-09-15] MEDS ORDERED: HEPARIN SODIUM - IV 10,000 UNITS/10 ML VIAL ONE (10:24)
[2017-09-15] MEDS ORDERED: MIDAZOLAM HCL 5 MG/5 ML VIAL ONE (10:24)
[2017-09-15] MEDS ORDERED: MIDAZOLAM HCL 2 MG/2 ML VIAL ONE (10:43)
--- NOTE | 2017-09-15 11:27 | HHI.PR ---
cc: Clifton Young MD Immediate Post Op Note Procedure Date: September 15, 2017 Pre Op Diagnosis: R LE PAD, claudication Post Op Diagnosis: R LE PAD, claudication Surgeon: Clifton Young Comfort Station Attendant(s): none Procedure: Aortogram w/ R LE angiogram IVUS of R SFA L EXPRESS CLERK Angioseal Findings: SFA proximal stenosis with distal occlusion and AK popliteal reconstitution unable to traverse occlusion Additional Information: L EXPRESS CLERK Angioseal (6F) Complications: none Specimen(s) removed: none Estimated blood loss: 10mL Anesthesia: MAC Drains: None Patient to: Other (DOCU) Patient Condition: Good Implant/Devices: SEE IMPLANT LOG (if applicable) Date/Time of Procedure: SEE SURGICAL CARE RECORD Clifton Young MD September 15, 2017 11:27
--- NOTE | 2017-09-15 11:31 | CATHPROC ---
[facility] HIS Report Study Information Study Number Admission Scheduled Start Study Start [id number] Sep 15 2017 8:06AM 09/15/2017 Sep 15 2017 10:15AM [place] Service Cath Endovascular Study Admit Source Facility Department Other [facility] - [facility]er Physician and Clinical Staff Initial MD Young, Clifton Mat Repairer Tigist Greenwood,DMITRIY Recorder Bulmaro Monroy,RT(R) ScrJudi Kennedy,RT(R) (BS) Procedures Performed Procedure Location (Site) Vessel Name Abdominal Angiogram Abd Aorta (A3) Aorta Angiogram (manual) Fem Sup. (left) Femoral Art Wire insertion Fem Art (left) Femoral Art Equipment Time Underground Foreman Description Size Mfg Part Number Used/Scraped [id number] 10:36 ANGIO-DYNAMICS OMNI FLUSH 65CM CATHETER FR 5 Used *[id number] INTRODUCER SET, 10:36 [employer]. FR 5 [id number] *[id number] Used MICROPUNCTURE STIFF CXI-4.0-35-135- 10:43 COOK/NGA CATHETER, FR4 CXI SUPPORT FR 4 Used P-NS-0 *[id number] SHEATH, FR6 GEOFFREY 1 FLEXOR [id number] 10:42 COOK/NGA FR 6 Used 55CM *[id number] WIRE, GUIDE APPROACH WELDING SUPERVISOR [id number] 10:43 COOK/NGA 300CM Used MICROWIRE *[id number] WIRE, DIAZ CURVED GUIDE [id number] 10:47 COOK/NGA 260CM Used 260CM *[id number] WIRE, DIAZ CURVED GUIDE [id number] 10:43 COOK/NGA 260CM Used 260CM *[id number] 11:19 DAIG/ST. VIOLETTE MEDICAL ANGIOSEAL, FR6 VIP FR 6 Used *[id number] 11:05 Meditech WIRE, THRU-WAY 300CM 300CM [id number] *[id number] Used 11:02 Meditech WIRE, THRU-WAY 300CM 300CM [id number] *[id number] Used 11:02 Meditech WIRE, THRU-WAY 300CM 300CM 82261 *[id number] Used [id number] 10:36 Vehcon PACK, CCL CUSTOM * Used *[id number] TUBING, PRESSURE INJECTION [id number] 10:36 NAMIC PACER 72" Used 72" *[id number] 10:36 NYCOMED OMNIPAQUE, 300 MG, 150ML 150ML [id number] Used 10:36 NYCOMED OMNIPAQUE, 300 MG, 50ML 50ML [id number] Used [id number] 10:36 [employer]OR[employer] MEDICAL BLANKET,WARM AIR CCL * Used *[id number] PEC905 10:35 TERUMO MEDICAL SHEATH, FR5 TERUMO (10CM) FR 5 Used *[id number] CATHETER, FR4 GUIDE ANGLED 11:14 TERUMO MEDICAL/NGA FR 4 [id number] *[id number] Used 120CM WIRE, ANGLED GLIDE .035 [id number] 10:36 TERUMO MEDICAL/NGA 260CM Used 260CM *[id number] 11:03 VOLCANO CATHETER, PIONEER PLUS FR 6 Used *[id number] Equipment Model, Serial, Lot Number and Expiration Data Description Model Number Serial Number Lot Number Expiration Date ANGIOSEAL, FR6 VIP [id number] 03-10-2018 CATHETER, FR4 CXI SUPPORT [id number] 08-01-2020 SHEATH, FR6 GEOFFREY 1 FLEXOR [id number] 06-22-2020 55CM WIRE, GUIDE APPROACH WELDING SUPERVISOR [id number] 10-26-2021 MICROWIRE WIRE, DIAZ CURVED GUIDE [id number] 06-12-2022 260CM WIRE, DIAZ CURVED GUIDE [id number] 08-02-2022 260CM History: Allergies Allergy Reaction No Known Allergies Medication Medication Total Dose (Bolus/Oral) Medication Total Dosage/Unit 1% XYLOCAINE 10 mL FENTANYL 150 mcg HEPARIN 5000 units VERSED 6 mg Medications (Bolus/Oral) Medication Time Given Dosage/Unit Administered By Reason VERSED 09/15/2017 10:30:28 AM 2 mg Adamy, Tigist 2 mg VERSED given in lab by Tigist Greenwood, DMITRIY via Peripheral IV. Ordered by Clifton Young. FENTANYL 09/15/2017 10:31:40 AM 50 mcg Adamy, Tigist 50 mcg FENTANYL given in lab by Tigist Greenwood, DMITRIY via Peripheral IV. Ordered by Clifton Young. VERSED 09/15/2017 10:33:47 AM 2 mg Adamy, Tigist 2 mg VERSED given in lab by Tigist Greenwood, DMITRIY via Peripheral IV. Ordered by Clifton Young. FENTANYL 09/15/2017 10:34:40 AM 50 mcg Guiy, Tigist 50 mcg FENTANYL given in lab by Tigist GreenwoodDMITRIY via Peripheral IV. Ordered by Clifton Young. 1% XYLOCAINE 09/15/2017 10:34:51 AM 10 mL Clifton Yonug 10 mL 1% XYLOCAINE given in lab by Clifton Young via Subcutaneous. Ordered by Clifton Young. HEPARIN 09/15/2017 10:42:36 AM 5000 units Tigist Greenwood 5000 units HEPARIN given in lab by Tigist Greenwood RN via Peripheral IV. Ordered by Clifton Young. VERSED 09/15/2017 10:55:28 AM 2 mg Tigist Greenwood 2 mg VERSED given in lab by Tigist Greenwood RN via Peripheral IV. Ordered by Clifton Young. FENTANYL 09/15/2017 10:56:42 AM 50 mcg Tigist Greenwood 50 mcg FENTANYL given in lab by Tigist Greenwood RN via Peripheral IV. Ordered by Clifton Young. Medication (Drip) Medication Time Given Dosage/Unit Concentration/Unit Diluent (ml) Solution SODIUM BICARBONATE 09/15/2017 10:29:23 AM 18.75 mL/hr 150 1000 NaCl .9 DRIP Patient arrived on 18.75 mL/hr SODIUM BICARBONATE DRIP in Left Wrist via Peripheral IV. Pump/Drip Michele w = 125 ml/hr using NaCl .9 with a concentration of 150 in 1000 ml. Initial Case Assessment Cardiovascular HR 75 Edema Present Skin color Skin None Normal Warm Dry Chronological Log Time Study Chronological Log 10:15:35 Patient arrived via Bed. 10:15:37 Patient Name, D.O.B, / Armband Verified By R.N. 10:15:38 Consent signed by the physician and the patient and verified by the Road [facility] staff. 10:15:39 Pre-op and post- op instructions given; patient acknowledges understanding of instructions. 10:15:59 Verbal Stimulation=2 Physical Stimulation=2 Airway=2 Respiration=2 TOTAL=8. (0=absent, 1=li mited, 2=present) 10:16:07 Presedation assessment performed by Road Marker RN. Vitals capture started with the following parameters, Patient=Adult, Interval=5 min, Initial Pr pbiksp=626 mmHg, 10:23:02 Deflation Rate=5 mmHg, Cuff placed on Right Ankle 10:24:23 HR=72 bpm, MYXO=278/84 mmhg, SpO2=97.0 %, Resp=18 B/min, Higginbotham=2 10:26:08 Reference ECG taken 10:27:05 Skin Breakdown-none present per patient. 10:27:21 A # 20 IV was noted in the Wrist (left). Grade = 0 10:28:06 Patient Name, D.O.B, / Armband Verified By R.N. 10:28:19 Patient has been NPO for More than 6Hrs. 10:28:45 HR=73 bpm, GYLP=299/95 mmhg, SpO2=96.0 %, Resp=16 B/min, Higginbotham=2 10:29:11 History and physical on the chart or being dictated. 10:29:15 Bilateral groins prepped with 2% chlorhexidine, and draped after a 3 minute waiting time. Patient arrived on 18.75 mL/hr SODIUM BICARBONATE DRIP in Left Wrist via Peripheral IV. Pump/Dr ip Flow = 125 10:29:23 ml/hr using NaCl .9 with a concentration of 150 in 1000 ml. 10:30:28 2 mg VERSED given in lab by Tigist Greenwood RN via Peripheral IV. Ordered by Rg Young 10:31:40 50 mcg FENTANYL given in lab by Tigist Greenwood RN via Peripheral IV. Ordered by Mariam Yonug. 10:33:37 Assessment: Initial Case, HR=75 BPM, Edema=None, Color=Normal, Skin = Warm, Dry 10:33:44 HR=74 bpm, VPEZ=437/93 mmhg, SpO2=96.0 %, Resp=10 B/min, Higginbotham=2 10:33:47 2 mg VERSED given in lab by Tigist Greenwood, DMITRIY via Peripheral IV. Ordered by Rg Young Time Out. Correct patient, correct procedure, correct physician, power injector loaded with con trast with surgical team 10:33:58 present. Time Out Concurred by MD and individual staff in procedure. 10:34:05 Case Start 10:34:40 50 mcg FENTANYL given in lab by Tigist Greenwood RN via Peripheral IV. Ordered by Mariam Young 10:34:43 Verbal Stimulation=2 Physical Stimulation=2 Airway=2 Respiration=2 TOTAL=8. (0=absent, 1=li mited, 2=present) 10:34:51 10 mL 1% XYLOCAINE given in lab by Clifton Young via Subcutaneous. Ordered by Kenney Young rt. 10:34:58 Access site was Left Femoral Artery. A INTRODUCER SET, MICROPUNCTURE STIFF FR 5 was advanced into the Fem Art (left) using the Ning castro 10:35:04 technique. A SHEATH, FR5 TERUMO (10CM) FR 5 was exchanged in the Fem Art (left). This was necessary in ord er to 10:36:30 accomodate a larger catheter. A OMNI FLUSH 65CM CATHETER FR 5 was advanced over a wire. OMNIPAQUE, 300 MG, 150ML 150ML was us ed for 10:36:46 injections. 10:36:53 Wire removed 10:36:58 Through a OMNI FLUSH 65CM CATHETER FR 5, The Abdominal Aorta was injected with 10 cc's of c ontrast. 10:38:47 HR=72 bpm, QBAK=456/88 mmhg, SpO2=97.0 %, Resp=13 B/min, Higginbotham=2 10:38:57 Through a OMNI FLUSH 65CM CATHETER FR 5, The Abdominal Aorta was injected with 10 cc's of c ontrast. 10:40:10 A WIRE, ANGLED GLIDE .035 260CM 260CM was inserted via Fem Art (left). 10:40:18 Wire removed 10:41:40 Multiple Power Injections down right leg with 5 romanian omniflush 10:42:36 5000 units HEPARIN given in lab by Tigist Greenwood RN via Peripheral IV. Ordered by Clifton Young. 10:42:47 A WIRE DIAZ CURVED GUIDE 260CM 260CM was inserted via Fem Art (left). A SHEATH, FR6 GEOFFREY 1 FLEXOR 55CM FR 6 was exchanged in the Fem Art (left). This was necessary in order to 10:42:59 accomodate a larger catheter. 10:43:42 HR=72 bpm, CHXC=789/85 mmhg, SpO2=89.0 %, Resp=13 B/min, Higginbotham=2 10:46:39 A WIRE, GUIDE APPROACH WELDING SUPERVISOR MICROWIRE 300CM was inserted via Fem Art (left). A CATHETER, FR4 CXI SUPPORT FR 4 was advanced over a wire. OMNIPAQUE, 300 MG, 150ML 150ML was u sed for 10:46:45 injections. 10:48:47 HR=69 bpm, HXRQ=060/81 mmhg, SpO2=95.0 %, Resp=11 B/min, Higginbotham=2 10:53:44 HR=70 bpm, RDLS=091/81 mmhg, SpO2=96.0 %, Resp=13 B/min, Higginbotham=2 10:55:28 2 mg VERSED given in lab by Tigist Greenwood, DMITRIY via Peripheral IV. Ordered by Rg Young 10:56:42 50 mcg FENTANYL given in lab by Tigist Greenwood, DIMTRIY via Peripheral IV. Ordered by Mariam Young 10:58:41 HR=75 bpm, MSDA=064/89 mmhg, SpO2=96.0 %, Resp=12 B/min, Higginbotham=2 11:02:18 The previous wire was exchanged for a WIRE, THRU-WAY 300CM 300CM. 11:03:46 HR=66 bpm, QXMZ=203/74 mmhg, SpO2=92.0 %, Resp=12 B/min, Higginbotham=2 A CATHETER, PIONEER PLUS FR 6 was advanced over a wire. OMNIPAQUE, 300 MG, 150ML 150ML was used for 11:04:24 injections. 11:08:43 HR=69 bpm, FFEB=802/85 mmhg, SpO2=95 %, Resp=12 B/min, Pain=0, Mani=10, Higginbotham=2 11:09:35 pioneer Catheter was removed 11:10:50 Fem Sup. (left) angiogram, manually injected. 11:13:42 HR=69 bpm, EHZU=732/81 mmhg, SpO2=94.0 %, Resp=11 B/min, Pain=0, Mani=10, Higginbotham=2 After removing the current catheter a CATHETER, FR4 GUIDE ANGLED 120CM FR 4 was advanced over a WIRE, THRU- 11:14:16 WAY 300CM 300CM. 11:16:22 Wire removed 11:17:07 Fem Sup. (left) angiogram, manually injected. 11:18:00 A WIRE, THRU-WAY 300CM 300CM was inserted via Fem Art (left). 11:18:45 HR=68 bpm, FFAC=919/83 mmhg, SpO2=94.0 %, Resp=12 B/min, Pain=0, Mani=10, Higginbotham=2 11:21:22 The previous wire was exchanged for a WIRE, ANGLED GLIDE .035 260CM 260CM. 11:21:55 guide Catheter was removed 11:23:30 Wire removed 11:23:44 HR=74 bpm, NURB=747/87 mmhg, SpO2=96.0 %, Resp=22 B/min, Pain=0, Mani=10, Higginbotham=2 11:24:13 ANGIOSEAL, FR6 VIP FR 6 placement in the Fem Art (left) 11:24:36 Sterile dressing applied to site 11:24:37 No case complications noted. 11:24:38 Cine recording checked. 11:24:39 Bedside Report will be given. 11:28:48 HR=74 bpm, LDCS=530/84 mmhg, SpO2=97.0 %, Resp=20 B/min, Pain=0, Mani=10, Higginbotham=2 11:30:16 Vitals capture stopped. End Study - Contrast Media Used In Study Contrast Total Opened (mL) Total Used (mL) Total Wasted (mL) Omnipaque 65 65 0 End Study - Radiation Exposure Fluoro Time (minutes) 20.8 End Study - Sheaths Sheaths Pulled By Sheath Hold Time (min) Clifton Young 2 End Study - Patient Disposition Complications Transferred To Interventional Outcome No Outpatient Bed unsuccessful
--- NOTE | 2017-09-15 12:20 | MP ---
cc: Clifton Young MD DATE OF OPERATION: 09/15/2017 PREOPERATIVE DIAGNOSIS: Right lower extremity claudication, peripheral vascular disease. POSTOPERATIVE DIAGNOSIS: Right lower extremity claudication, peripheral vascular disease. PROCEDURE PERFORMED: 1. Aortogram with right lower extremity angiogram. 2. Intravascular ultrasound of right superficial femoral artery. ATTENDING SURGEON: Clifton Young MD ANESTHESIA: Local with sedation. INDICATION: Mr. Peters is a 66-year-old gentleman with peripheral vascular disease manifesting as short distance claudication. He is taken to operating room for endograft evaluation and treatment. There is no prior catheterization based imaging available for my review. DESCRIPTION OF PROCEDURE: Informed consent was obtained from the patient. He was taken to the operating room and placed supine on the operating room table. An appropriate timeout was taken to ensure the patient's identity, operative site and planned procedure. The administration of antibiotics was not necessary since this is a clean procedure without planned implantation of any foreign object. Everyone in the room agreed with timeout and we proceeded. His bilateral groins were prepped and draped. The left groin was anesthetized with 1% lidocaine. A 21-gauge micropuncture needle was utilized to access the left common femoral artery. This was exchanged using Seldinger technique for a micropuncture sheath, through which a 0.035 Glidewire was introduced. The micropuncture sheath was exchanged for a 5-Mohawk sheath and a VCF catheter was placed over the wire and through sheath. An aortogram, pelvic arteriogram was obtained. The Glidewire was reintroduced, navigated down to the right common femoral artery and the VCF catheter was advanced over this and right lower extremity arteriogram was obtained. The patient was systemically heparinized with 5000 units of IV heparin. A 0.035 Garcia wire was introduced down to the mid SFA. The VCF catheter and 5-Mohawk sheath were removed and the 6-Mohawk 55 cm Ramesh sheath was introduced. A CXI catheter was placed over the wire and through the sheath, and the wire was exchanged for a PAPER BUNDLER wire. Using the PAPER BUNDLER wire and CXI catheter, we navigated down to the mid to distal SFA, but were unable to reenter into the true lumen. We then attempted a subintimal reentry with the Glidewire, but this was also unsuccessful. We then advanced a 0.0143 Thruway wire, and the CXI catheter was removed and a Alex intravascular ultrasound reentry guided catheter was introduced. Images were obtained of the SFA and multiple attempts were made to insert the curvilinear needle back into the true lumen, but these were unsuccessful. The wire, catheter and sheath were removed and the groin was closed with an Angio-Seal. There were no complications. I was present and scrubbed and performed the entire procedure. INTERPRETATION OF IMAGES: The patient has a patent terminal aorta, common iliac arteries, external iliac arteries and hypogastric arteries bilaterally. The left common iliac artery at the stent is widely patent. The right common femoral artery and profunda are patent. The SFA is diminutive and then occludes in the mid SFA. The distal SFA reconstitutes via profunda based collaterals and there is 3-vessel runoff to the mid calf. MD KEVON Blake/IVA , 11:49 AM , 12:18 PM SILAS
== END 2017-09-15 14:19 | disposition home or self-care (01) ==
LOC: HDOC 08:06 → HDIC 08:07 → HDOC 14:19
PROVIDERS: ATTEND Surgery
DX: I73.9 Peripheral vascular disease, unspecified (principal); I10 Essential (primary) hypertension; J44.9 Chronic obstructive pulmonary disease, unspecified; Z79.82 Long term (current) use of aspirin; Z95.820 Peripheral vascular angioplasty status with implants and grafts
CPT/HCPCS: 36246; 75625; 75710; 82565; 99152; 99153; C1751; C1760; C1769; C1887; C1893; G0269; J1644; J2250; J3010; Q9967

== ENCOUNTER 2017-10-19 09:59 | Day surgery (SDC) | payer OTHER ==
[~2017-10-19] VITALS: Ht 170.2 cm; Wt 85.2 kg
[~2017-10-19 09:59] MED LIST changes: -CARV3.125 PO; -PRAV80TA PO
[2017-10-19] MEDS ORDERED: IOHEXOL 350 MG/ML 100 ML BTL (for Cath Lab) OTHER ONE (10:00)
[2017-10-19 10:46] VITALS: BP 187/102; PULSE 84; RESP 18; TEMP 98.7; O2SAT 94
[2017-10-19 11:01] LABS: AUTOMATED NEUTROPHIL # 6.3 TH/MM3 (1.8-7.7); BASOPHIL % 0.4 % (0.0-2.0); EOSINOPHIL # 0.1 TH/MM3 (0-0.4); EOSINOPHIL % 1.1 % (0.0-4.0); HEMATOCRIT 46.5 % (39.0-51.0); HEMOGLOBIN 16.2 GM/DL (13.0-17.0); LYMPH % 21.1 % (9.0-44.0); LYMPHOCYTE # 1.9 TH/MM3 (1.0-4.8); MEAN CORPUSCULAR HEMOGLOBIN 30.8 PG (27.0-34.0); MEAN PLATELET VOLUME 9.1 FL (7.0-11.0); MONO % 7.3 % (0.0-8.0); MONOCYTE # 0.7 TH/MM3 (0-0.9); NEUT % 70.1 % (16.0-70.0); PLATELET COUNT 184 TH/MM3 (150-450); RED BLOOD COUNT 5.28 MIL/MM3 (4.50-5.90); RED CELL DISTRIBUTION WIDTH 12.8 % (11.6-17.2); WHITE BLOOD COUNT 8.9 TH/MM3 (4.0-11.0)
[2017-10-19 11:08] LABS: PROTHROMBIN TIME - PATIENT 10.2 SEC (9.8-11.6)
[2017-10-19 11:16] LABS: BICARBONATE 27.4 MEQ/L (21.0-32.0); CALCIUM 9.1 MG/DL (8.5-10.1); CREATININE 1.18 MG/DL (0.60-1.30)
--- NOTE | 2017-10-19 13:34 | PD.VS.PN ---
Pre-operative Note Pre-operative diagnosis: R LE claudication Planned procedure: R LE angiogram, possible endovascular intervention Interval History: Pt has been feeling well and has no new medical problems that would preclude surgery Labs: Laboratory Results Test 10/19/17 10:39 Anion Gap 9 MEQ/L (5-15) Blood Urea Nitrogen 18 MG/DL (7-18) Creatinine 1.18 MG/DL (0.60-1.30) Random Glucose 104 MG/DL (74-106) Calcium Level 9.1 MG/DL (8.5-10.1) Sodium Level 142 MEQ/L (136-145) Potassium Level 4.1 MEQ/L (3.5-5.1) Chloride Level 106 MEQ/L (98-107) Carbon Dioxide Level 27.4 MEQ/L (21.0-32.0) Hematocrit 46.5 % (39.0-51.0) Hemoglobin 16.2 GM/DL (13.0-17.0) Mean Corpuscular Hemoglobin 30.8 PG (27.0-34.0) Mean Corpuscular Hemoglobin Concent 35.0 % (32.0-36.0) Mean Corpuscular Volume 88.0 FL (80.0-100.0) Mean Platelet Volume 9.1 FL (7.0-11.0) Platelet Count 184 TH/MM3 (150-450) Prothromb Time International Ratio 1.0 RATIO Red Blood Count 5.28 MIL/MM3 (4.50-5.90) Red Cell Distribution Width 12.8 % (11.6-17.2) White Blood Count 8.9 TH/MM3 (4.0-11.0) Blood: none needed Imaging: will make Orders: NPO Post-operative destination: DOCU Operative site marked: Yes Consent: Informed consent has been obtained from Humza Peters. I have explained the procedure in detail and discussed the risks, benefits, and potential complications. All questions have been answered. Clifton Young MD Oct 19, 2017 13:34
[2017-10-19] MEDS ORDERED: MIDAZOLAM HCL 5 MG/5 ML VIAL ONE (13:45)
[2017-10-19] MEDS ORDERED: HEPARIN-NS/PF INJ 1,000 ML ONE (13:45)
[2017-10-19] MEDS ORDERED: HEPARIN SODIUM - IV 10,000 UNITS/10 ML VIAL ONE (13:45)
[2017-10-19] MEDS ORDERED: MIDAZOLAM HCL 2 MG/2 ML VIAL ONE (13:59)
[2017-10-19] MEDS ORDERED: ceFAZolin INJ 1,000 MG VIAL ONE (14:44)
--- NOTE | 2017-10-19 14:57 | HHI.PR ---
cc: Clifton Young MD Immediate Post Op Note Procedure Date: Oct 19, 2017 Pre Op Diagnosis: R LE claudication, PAD Post Op Diagnosis: R LE claudication, PAD Surgeon: Clifton Young Commodity Supervisor(s): none Procedure: R LE angiogram R SFA HORSE EXERCISER/stent ([id number]) L [employer] Angioseal Findings: SFA stenosis, successful HORSE EXERCISER/stent good runoff Complications: none Specimen(s) removed: none Estimated blood loss: 10mL Anesthesia: MAC Drains: None Patient to: Other (DOCU) Patient Condition: Good Implant/Devices: SEE IMPLANT LOG (if applicable) Date/Time of Procedure: SEE SURGICAL CARE RECORD Clitfon Young MD Oct 19, 2017 14:57
[2017-10-19] MEDS ORDERED: CLOPIDOGREL 75 MG TAB PO ONE (15:00)
--- NOTE | 2017-10-19 15:03 | CATHPROC ---
[employer] HIS Report Study Information Study Number Admission Scheduled Start Study Start [id number] Oct 19 2017 9:59AM 10/19/2017 Oct 19 2017 1:40PM [place] [facility] Cath Endovascular Study Admit Source Facility Department Other [facility] - [facility]acy [facility] Physician and Clinical Staff Initial MD Young, Clifton Deckhand [employer]una Boat Tigist Greenwood,DMITRIY Other cathlab, cathlab Recorder Migel Stern RCIS(BS) Recorder Reina Melara,HEEL STAINER TECH2 Scrub HostBulmaro pena,RT(R) Procedures Performed Procedure Location (Site) Vessel Name Angiogram (manual) Fem Sup. (right) Femoral Art Angiogram (manual) Popliteal R (R10) Popliteal Angiogram (manual) Tib, Ant. (right) Popliteal Periph stent Fem Sup. (right) Femoral Art CABLE REPAIRER Fem Sup. (right) Femoral Art Wire insertion Fem Art (left) Femoral Art Wire insertion Fem Art (right) Femoral Art Equipment Time Cake Wringer Description Size Mfg Part Number Used/Scraped [id number] 14:09 ANGIO-DYNAMICS OMNI FLUSH 65CM CATHETER FR 4 Used *[id number] 14:13 ANGIO-DYNAMICS OMNI FLUSH 65CM CATHETER FR 4 Used *[id number] INTRODUCER SET, 13:45 [employer]. FR 5 [id number] *[id number] Used MICROPUNCTURE STIFF BALLOON, ADVANCE 35 LP .035 5 [id number] 14:34 COOK/NGA 5 X 20 Used X 20 *[id number] CXI-4.0-35-135- 14:29 COOK/NGA CATHETER, FR4 CXI SUPPORT FR 4 Used P-NS-0 *[id number] KCFW-6.0-18/38- 14:26 COOK/NGA SHEATH, FR6 GEOFFREY 1 FLEXOR FR 6 [id number] Used *[id number] WIRE, GUIDE APPROACH CALLISTHENICS INSTRUCTOR [id number] 14:30 COOK/NGA 300CM Used MICROWIRE *[id number] 14:50 DAIG/ST. VIOLE[employer]E MEDICAL ANGIOSEAL, FR6 VIP FR 6 Used *[id number] ENDOVASCULAR STENT, EVERFLEX ENTRUST 6 X [id number]- 14:44 FR 5 Used COMPANY 120 120CM 120 *[id number] 13:45 Memamp BLANKET,WARM AIR CCL * Used *[id number] 13:45 MEDLINE [employer] PACK, CCL CUSTOM * Used *[id number] 14:31 [employer] MEDICAL 30 KAMILA INDEFLATOR Used *[id number] TUBING, PRESSURE INJECTION [id number] 13:45 NAM 72" Used 72" *[id number] 13:45 NYCOMED OMNIPAQUE, 300 MG, 150ML 150ML [id number] Used 13:45 NYCOMED OMNIPAQUE, 300 MG, 50ML 50ML [id number] Used 14:41 NYCOMED OMNIPAQUE, 300 MG, 50ML 50ML [id number] Used [id number] 14:11 TERUMO MEDICAL SHEATH, FR5 TERUMO (10CM) FR 5 Used *[id number] WIRE, ANGLED GLIDE .035 [id number] 13:45 TERUMO MEDICAL/NGA 260CM Used 260CM *[id number] Equipment Model, Serial, Lot Number and Expiration Data Description Model Number Serial Number Lot Number Expiration Date STENT, EVERFLEX ENTRUST 6 X [id number] 02-13-2020 120 120CM History: Allergies Allergy Reaction No Known Allergies Labs Hgb (g/dl) Hct (%) WBC (l/cumm) Platelets (thousands) 11.60-17.00 35.00-51.00 4.00-11.00 150.00-450.00 16.2 46.5 8.9 184 Glucose (mg/dl) BUN (mg/dl) Creatinine (mg/dl) BUN:Creatinine (1:x) 74.00-106.00 7.00-18.00 0.50-1.30 10.00-20.00 104 18 1.1 16.4 Na (meq/l) K (meq/l) Cl (meq/l) 136.00-145.00 3.50-5.10 98.00-107.00 142 4.1 106 INR (PTT:PT) 0.90-1.10 1 CPK-MB (ng/ML) 0.50-3.60 Not Drawn Medication Medication Total Dose (Bolus/Oral) Medication Total Dosage/Unit 1% XYLOCAINE 20 mL FENTANYL 125 mcg HEPARIN 5000 units VERSED 5 mg Medications (Bolus/Oral) Medication Time Given Dosage/Unit Administered By Reason VERSED 10/19/2017 1:40:00 PM 1 mg Adamy, Tigist 1 mg VERSED given in lab by Tigist Greenwood RN in Left Antecubital via Peripheral IV. Ordered by Clifton Duff. FENTANYL 10/19/2017 1:41:00 PM 25 mcg Adamy, Tigist 25 mcg FENTANYL given in lab by Tigist Greenwood RN in Left Antecubital via Peripheral IV. Ordered by Clifton Young. VERSED 10/19/2017 1:56:00 PM 2 mg Adamy, Tigist 2 mg VERSED given in lab by Tigist Greenwood RN in Left Antecubital via Peripheral IV. Ordered by Clifton Duff. FENTANYL 10/19/2017 1:57:15 PM 50 mcg Adamy, Tigist 50 mcg FENTANYL given in lab by Tigist Greenwood RN in Left Antecubital via Peripheral IV. Ordered by Clifton Young. VERSED 10/19/2017 2:02:38 PM 1 mg Adamy, Tigist 1 mg VERSED given in lab by Tigist Greenwood RN in Left Antecubital via Peripheral IV. Ordered by Clifton Duff. FENTANYL 10/19/2017 2:02:43 PM 25 mcg Adamy, Tigist 25 mcg FENTANYL given in lab by Tigist Greenwood RN in Left Antecubital via Peripheral IV. Ordered by Clifton Young. 1% XYLOCAINE 10/19/2017 2:08:51 PM 20 mL Clifton Young 20 mL 1% XYLOCAINE given in lab by Clifton Young in Left Groin via Subcutaneous. VERSED 10/19/2017 2:11:53 PM 1 mg Adamy, Tigist 1 mg VERSED given in lab by Tigist Greenwood RN in Left Antecubital via Peripheral IV. Ordered by Clifton Duff. FENTANYL 10/19/2017 2:11:56 PM 25 mcg Adamy, Tigist 25 mcg FENTANYL given in lab by Tigist Greenwood RN in Left Antecubital via Peripheral IV. Ordered by Clifton Young. HEPARIN 10/19/2017 2:21:47 PM 5000 units Timo, Tigist 5000 units HEPARIN given in lab by Tigist Greenwood RN in Left Antecubital via Peripheral IV. Ordered by Clifton Young. Medication (Drip) Medication Time Given Dosage/Unit Concentration/Unit Diluent (ml) Solution ANCEF 10/19/2017 2:48:20 PM 2 g 2 g ANCEF given in lab by Tigist Greenwood RN in Left Antecubital via Peripheral IV. Ordered by Clifton Daniel. IV Solutions 10/19/2017 1:40:53 PM 0 mL (IV) 500 NaCl .9 Patient arrived on IV Solutions given by joslyn jorgensen in Left Antecubital via Peripheral IV. Pump /Drip Flow = 20 ml/hr using NaCl .9. Final Case Assessment Cardiovascular HR Rhythm NIBP Chest Pain 66 nsr 146/77 0 Edema Present Skin color Skin None Normal Warm Dry Circulatory - Right Pulses Dorsalis Pedis Femoral 1 2 Scale (0,1,2,3,4,d) Circulatory - Left Pulses Dorsalis Pedis Femoral 1 2 Scale (0,1,2,3,4,d) Neurological State Oriented to time-place- Alert Moves all extremities person Respiration - General Respiration Rate SpO2 (%) (B/min) 15 99 Initial Case Assessment Cardiovascular HR Rhythm NIBP Chest Pain 71 nsr 152/80 0 Edema Present Skin color Skin None Normal Warm Dry Circulatory - Right Pulses Dorsalis Pedis Femoral 1 2 Scale (0,1,2,3,4,d) Circulatory - Left Pulses Dorsalis Pedis Femoral 1 2 Scale (0,1,2,3,4,d) Neurological State Oriented to time-place- Alert Moves all extremities person Respiration - General Respiration Rate SpO2 (%) (B/min) 15 99 Chronological Log Time Study Chronological Log 13:36:00 Patient arrived via Bed. 13:36:01 Patient Name, D.O.B, / Armband Verified By R.N. 13:36:02 Consent signed by the physician and the patient and verified by the [facility] staff. 13:40:00 1 mg VERSED given in lab by Tigist Greenwood RN in Left Antecubital via Peripheral IV. Orde red by Clifton Young. 13:40:41 Pre-op and post- op instructions given; patient acknowledges understanding of instructions. 13:40:42 Verbal Stimulation=2 Physical Stimulation=2 Airway=2 Respiration=2 TOTAL=8. (0=absent, 1=li mited, 2=present) 13:40:43 Presedation assessment performed by Literacy Tutor RN. 13:40:47 Immediate Presedation assesment performed by physician. 13:40:48 Patient has been NPO for More than 6Hrs. 13:40:49 Skin Breakdown- none per patient 13:40:49 Patient Warmer Placed on the Table. 13:40:51 Agata Prominences Protected 13:40:52 A # 20 IV was noted in the Antecubital (left). Grade = 0 Patient arrived on IV Solutions given by cathjoslyn bond in Left Antecubital via Peripheral IV . Pump/Drip Flow = 20 13:40:53 ml/hr using NaCl .9. 13:41:00 25 mcg FENTANYL given in lab by Tigist Greenwood RN in Left Antecubital via Peripheral IV. Ordered by Clifton Young. 13:41:08 History and physical on the chart or being dictated. 13:42:05 MD arrived. 13:47:57 Immediate Presedation assesment performed by physician. 13:55:39 Bilateral groins prepped with 2% chlorhexidine, and draped after a 3 minute waiting time. 13:56:00 2 mg VERSED given in lab by Tigist Greenwood RN in Left Antecubital via Peripheral IV. Orde red by Clifton Young. 13:57:15 50 mcg FENTANYL given in lab by Tigist Greenwood RN in Left Antecubital via Peripheral IV. Ordered by Clifton Young. 14:02:38 1 mg VERSED given in lab by Tigist Greenwood RN in Left Antecubital via Peripheral IV. Orde red by Clifton Young. 14:02:43 25 mcg FENTANYL given in lab by Tigist Greenwood RN in Left Antecubital via Peripheral IV. Ordered by Clifton Young. Assessment: Initial Case, HR=71 BPM, Rhythm=nsr, LVUL=482/80 mmhg, Chest Pain=0, Edema=None, Co daisy=Normal, Skin = Warm, Dry Right Pulses: Alvin Ped=1, Femoral=2 14:05:20 Left Pulses: Alvin Ped=1, Femoral=2 Neurological: State=Alert, Ox3, ROLON Respiration: Resp=15 B/min, SpO2=99 % Time Out. Correct patient, correct procedure, correct physician, labs, allergies, and equipment verified with woven label designer 14:08:30 team present. Fire risk assesment completed (see hard stop sheet for coding). Time Out Conc urred by MD and individual staff in procedure. 14:08:50 Case Start 14:08:51 20 mL 1% XYLOCAINE given in lab by Clifton Young in Left Groin via Subcutaneous. 14:10:25 Access site was Left Femoral Artery. A INTRODUCER SET, MICROPUNCTURE STIFF FR 5 was advanced into the Fem Art (left) using the Ning castro 14:10:32 technique. A SHEATH, FR5 TERUMO (10CM) FR 5 was exchanged in the Fem Art (left). This was necessary in ord er to 14:10:35 accomodate a larger catheter. 14:11:53 1 mg VERSED given in lab by Tigist Greenwood RN in Left Antecubital via Peripheral IV. Orde red by Clifton Young. 14:11:56 25 mcg FENTANYL given in lab by Tigist Greenwood RN in Left Antecubital via Peripheral IV. Ordered by Clifton Young. A OMNI FLUSH 65CM CATHETER FR 4 was advanced over a wire. OMNIPAQUE, 300 MG, 50ML 50ML was used for 14:14:00 injections. 14:15:47 Fem Sup. (right) angiogram, manually injected. 14:20:10 A WIRE, ANGLED GLIDE .035 260CM 260CM was inserted via Fem Art (left). 5000 units HEPARIN given in lab by Tigist Greenwood RN in Left Antecubital via Peripheral IV. O rdered by Hector 14:21:47 Clifton. A SHEATH, FR6 GEOFFREY 1 FLEXOR FR 6 was exchanged in the Fem Art (right). This was necessary in o rder to 14:22:46 accomodate a larger catheter. 14:26:18 The previous wire was exchanged for a WIRE, GUIDE APPROACH CALLISTHENICS INSTRUCTOR MICROWIRE 300CM. 14:28:44 A CATHETER, FR4 CXI SUPPORT FR 4 was advanced over a wire. contrast was used for injections . 14:29:42 The previous wire was exchanged for a WIRE, ANGLED GLIDE .035 260CM 260CM. A BALLOON, ADVANCE 35 LP .035 5 X 20 5 X 20 was inserted over WIRE, ANGLED GLIDE .035 260CM 260 CM via the 14:32:40 Fem Art (left). 14:34:05 In the Fem Sup. (right) a BALLOON, ADVANCE 35 LP .035 5 X 20 5 X 20 was inflated to 4 atms for 120 seconds. 14:40:44 Balloon Removed. A STENT, EVERFLEX ENTRUST 6 X 120 120CM FR 5 was advanced through a catheter over a WIRE, ANGLE D GLIDE 14:43:10 .035 260CM 260CM. A STENT, EVERFLEX ENTRUST 6 X 120 120CM FR 5 was deployed at ~KAMILA~ atmospheres for ~SECONDS~ se conds in 14:45:08 the Fem Sup. (right). 14:45:26 Delivery device removed A BALLOON, ADVANCE 35 LP .035 5 X 20 5 X 20 was inserted over WIRE, ANGLED GLIDE .035 260CM 260 CM via the 14:45:50 Fem Art (left). 14:46:37 In the Fem Sup. (right) a BALLOON, ADVANCE 35 LP .035 5 X 20 5 X 20 was inflated to 4 atms for 120 seconds. 14:47:00 Balloon Removed. 14:47:59 Fem Sup. (right) angiogram, manually injected. 14:48:01 Popliteal R (R10) angiogram, manually injected. 14:48:20 2 g ANCEF given in lab by Tigist Greenwood RN in Left Antecubital via Peripheral IV. Order ed by Clifton Young. 14:48:37 Tib, Ant. (right) angiogram, manually injected. 14:49:40 Wire removed 14:49:41 A WIRE, ANGLED GLIDE .035 260CM 260CM was inserted via Fem Art (right). 14:49:50 ANGIOSEAL, FR6 VIP FR 6 placement in the Fem Art (left) 14:51:30 Case End (Physician broke scrub) Assessment: Final Case, HR=66 BPM, Rhythm=nsr, JTCH=737/77 mmhg, Chest Pain=0, Edema=None, Col or=Normal, Skin = Warm, Dry Right Pulses: Alvin Ped=1, Femoral=2 14:51:45 Left Pulses: Alvin Ped=1, Femoral=2 Neurological: State=Alert, Ox3, ROLON Respiration: Resp=15 B/min, SpO2=99 % 14:52:52 Sterile dressing applied to site 14:52:53 No case complications noted. 14:52:57 Holding Area notified of successful intervention. 14:52:58 Bedside Report will be given. 14:52:58 Implantable Device card placed in patient's chart. 14:53:14 Verbal Stimulation=2 Physical Stimulation=2 Airway=2 Respiration=2 TOTAL=8. (0=absent, 1=l imited, 2=present) 14:55:59 Patient moved to stretcher End Study - Contrast Media Used In Study Contrast Total Opened (mL) Total Used (mL) Total Wasted (mL) Omnipaque 50 50 0 End Study - Maximum Contrast Load Max Contrast Load (mL) 387.2 End Study - Radiation Exposure Fluoro Time (minutes) 9.0 End Study - Patient Disposition Complications Transferred To Interventional Outcome No [facility] Holding successful
--- NOTE | 2017-10-19 16:44 | MP ---
cc: Clifton Young MD DATE OF OPERATION: 10/19/2017 PREOPERATIVE DIAGNOSIS: Right lower extremity claudication, peripheral vascular disease. POSTOPERATIVE DIAGNOSIS: Right lower extremity claudication, peripheral vascular disease. PROCEDURE PERFORMED: Right SFA angioplasty and stent. ATTENDING SURGEON: Clifton Young MD ANESTHESIA: Local with sedation. INDICATIONS FOR PROCEDURE: Mr. Peters is a 66-year-old gentleman with right lower extremity claudication. He has SFA occlusion that was unable to be traversed several weeks ago. He was taken to the operating room for a second attempt. DESCRIPTION OF PROCEDURE: Informed consent was obtained from the patient. He was taken to the operating room and placed supine on the operating table. An appropriate timeout was taken to ensure the patient's identity, the operative site and the planned procedure. Administration of 2 grams of Ancef was initiated prior to stent implantation and will be discontinued after single preoperative dose. Everyone in the room agreed with timeout and we proceeded. His bilateral groins were prepped and draped. Left groin was anesthetized with 1% lidocaine. A 21-gauge micropuncture needle was used to access the left common femoral artery. This was exchanged using Seldinger technique for a micropuncture sheath, through which a 0.35-inch Glidewire was introduced and the micropuncture sheath was exchanged for a 5-[place] sheath. A VCF catheter was placed over and through the sheath and navigated down to the right common femoral artery and indeed into the right superficial femoral artery. The patient was systemically heparinized with 5000 units of IV heparin. The Glidewire was then removed and a Garcia wire was passed through the VCF catheter into the SFA. Then the VCF catheter and 5-[place] sheath removed and a 6-[place], 55 cm antral sheath was introduced into the proximal SFA. The CXI catheter was placed over the wire and a SPINNING FRAME CLEANER wire was then used to attempted recanalize the SFA and then this was exchanged for a Glidewire. The Glidewire easily navigated down to the distal above-knee popliteal artery and the catheter was advanced over this. An angiogram confirmed we were indeed in this area, in the above-knee popliteal artery, and the Garcia wire was reintroduced. The entire SFA was angioplastied with a 5 mm balloon. The completion angiogram showed a residual stenosis in the SFA that was treated with a 6 x 120 stent, which was postdilated with a 5 mm balloon. The completion angiogram showed excellent result without any recall, extravasation, no embolic complications. The wire, catheter and sheath were removed and the groin was closed with an Angio-Seal. There were no complications. I was present and scrubbed for the entire procedure. MD KEVON Blake/IVA , 04:23 PM , 04:43 PM
== END 2017-10-19 17:00 | disposition home or self-care (01) ==
LOC: HSDC 09:59 → HDIC 10:16 → HSDC 17:00
PROVIDERS: ATTEND Surgery
DX: I70.211 Atherosclerosis of native arteries of extremities with intermittent claudication, right leg (principal); I10 Essential (primary) hypertension; J44.9 Chronic obstructive pulmonary disease, unspecified
CPT/HCPCS: 37226; 75710; 80048; 85025; 85610; 99152; 99153; C1725; C1751; C1760; C1769; C1876; C1893; G0269; J0690; J1644; J2250; J3010; Q9967